=== PATIENT | male | born 1970 | race African-American/Black ===

== ENCOUNTER 2017-07-24 10:32 | Inpatient (IN) | payer OTHER ==
[2017-07-24 11:43] VITALS: BMI 40.7
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
[2017-07-24] MEDS ORDERED: chlordiazePOXIDE HCL 25 MG CAPSULE PO PRN (13:19)
[2017-07-24] MEDS ORDERED: LOPERAMIDE HCL 2 MG CAPSULE PO PRN (13:19)
[2017-07-24] MEDS ORDERED: diphenhydrAMINE HCL 50 MG CAPSULE PO PRN (13:19)
[2017-07-24] MEDS ORDERED: MAGNESIUM CITRATE 300 ML BOTTLE PO PRN (13:19)
[2017-07-24] MEDS ORDERED: guaiFENesin/D-METHORPHAN HB 10 ML UNIT-DOSE CUPS PO PRN (13:19)
[2017-07-24] MEDS ORDERED: hydrOXYzine PAMOATE 25 MG CAPSULE (FP) PO PRN (13:19)
[2017-07-24] MEDS ORDERED: MAGNESIUM HYDROX 2400MG/30ML ORAL SUSPENSION 30 ML CUP PO PRN (13:19)
[2017-07-24] MEDS ORDERED: MENTHOL/PHENOL 1 EACH UD MM PRN (13:19)
[2017-07-24] MEDS ORDERED: ACETAMINOPHEN 325 MG TABLET (FP) PO PRN (13:19)
[2017-07-24] MEDS ORDERED: IBUPROFEN 400 MG TABLET (FP) PO PRN (13:19)
[2017-07-24] MEDS ORDERED: P-EPHED 60MG/TRIPROLIDI 2.5MG TABLET PO PRN (13:19)
[2017-07-24] MEDS ORDERED: MAG HYDROX/AL HYDROX/SIMETH 30 ML UNIT-DOSE CUP PO PRN (13:19)
[2017-07-24] MEDS ORDERED: chlordiazePOXIDE HCL 25 MG CAPSULE PO ONE (14:00)
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
[2017-07-24 16:48] LABS: MCH 30.6 pg (25.7-33.7); MCHC 33.4 g/dl (32.0-35.9); MEAN CELL VOLUME 91.6 fl (80-96); MEAN PLT VOLUME 10.9 fl (7.5-11.1); PLATELET COUNT 282 K/MM3 (134-434); RDW 14.1 % (11.9-15.9); WHITE BLOOD COUNT 12.7 K/mm3 (4.0-10.0)
[2017-07-24 16:58] LABS: URINE APPEARANCE SLCLOUDY; URINE BILIRUBIN NEGATIVE (NEGATIVE); URINE BLOOD NEGATIVE (NEGATIVE); URINE COLOR YELLOW; URINE GLUCOSE (UA) NEGATIVE (NEGATIVE); URINE KETONE NEGATIVE (NEGATIVE); URINE LEUK ESTERASE TRACE (NEGATIVE); URINE NITRITE NEGATIVE (NEGATIVE); URINE UROBILINOGEN NEGATIVE mg/dL (0.2-1.0)
[2017-07-24] MEDS: chlordiazePOXIDE HCL 25 MG CAPSULE PO SCH ×2 (17:04→22:55)
[2017-07-24 17:06] LABS: URINE PROTEIN 2+ (NEGATIVE)
[2017-07-24 17:10] LABS: URINE MUCUS MANY; URINE RBC 1 /hpf (0-3); URINE WBC 20 /hpf (3-5)
[2017-07-24 17:19] LABS: ALBUMIN 4.6 g/dl (3.4-5.0); ANION GAP 9 (8-16); CALCIUM 9.7 mg/dL (8.5-10.1); CO2 26 mmol/L (21-32); CREATININE 1.3 mg/dL (0.7-1.3); GLUCOSE,RANDOM 133 mg/dL (74-106); SGOT/AST 48 U/L (15-37); SGPT/ALT 27 U/L (12-78)
[2017-07-24 17:21] LABS: ALK PHOS 100 U/L (45-117); BILIRUBIN,TOTAL 0.5 mg/dL (0.2-1.0); TOT PROT 8.4 g/dl (6.4-8.2)
[2017-07-24] MEDS: RANITIDINE HCL 150 MG TABLET (FP) PO SCH (22:54)
[2017-07-24] MEDS: QUEtiapine FUMARATE 200 MG TABLET PO SCH (22:54)
[2017-07-24] MEDS: THIAMINE HCL 100 MG TABLET (FP) PO SCH (22:54)
[2017-07-25] MEDS: chlordiazePOXIDE HCL 25 MG CAPSULE PO SCH ×4 (05:29→22:22)
[2017-07-25] MEDS: PRENATAL VITAMINS W/ FOLIC ACID TABLET (FP) PO SCH (10:53)
[2017-07-25] MEDS: SERTRALINE HCL 50 MG TABLET (FP) PO SCH (10:53)
[2017-07-25] MEDS: RANITIDINE HCL 150 MG TABLET (FP) PO SCH ×2 (10:53→22:22)
--- NOTE | 2017-07-25 11:34 | EKG ---
Test Reason : Blood Pressure : / mmHG Vent. Rate : 090 BPM Atrial Rate : 090 BPM P-R Int : 120 ms QRS Dur : 088 ms QT Int : 362 ms P-R-T Axes : 070 046 021 degrees QTc Int : 442 ms NORMAL SINUS RHYTHM NORMAL ECG NO PREVIOUS ECGS AVAILABLE Confirmed by TALHA AGUILAR MD ([id number]) on 07/25/2017 11:33:45 AM Referred By: Confirmed By:TALHA AGUILAR MD
--- NOTE | 2017-07-25 14:04 | PN ---
S CIWA - CIWA Score Nausea/Vomitin Muscle Tremors: 4-Moderate,w/Arms Extend Anxiety: 3 Agitation: 1-Slight > Activity Paroxysmal Sweats: 3 Orientation: 0-Oriented Tacttile Disturbances: 1-Very Mild Itch/Numbness Auditory Disturbances: 1-Very Mild Visual Disturbances: 2-Mild Sensitivity Headache: 0-None Present CIWA-Ar Total Score: 17 BHS Progress Note (SOAP) Subjective: Body Aches, sweating, Diarrhea, Interrupted sleep, Tremors. Objective: PT. A & O X 3. NO ACUTE DISTRESS. PATIENT DOES NOT REPORT ANY UNUSUAL URINARY SYMPTOMS (BURNING, PAIN, FREQUENCY). 07/25/17 14:02 Vital Signs Temperature 96.8 F L 07/25/17 13:44 Pulse Rate 67 07/25/17 13:44 Respiratory Rate 18 07/25/17 13:44 Blood Pressure 110/81 07/25/17 13:44 O2 Sat by Pulse Oximetry (%) Laboratory Tests 07/24/17 07/24/17 07/24/17 12:00 12:00 12:00 WBC 12.7 H D RBC 4.83 Hgb 14.8 Hct 44.2 MCV 91.6 MCH 30.6 MCHC 33.4 RDW 14.1 Plt Count 282 D MPV 10.9 Sodium 141 Potassium 4.3 Chloride 106 Carbon Dioxide 26 Anion Gap 9 BUN 17 D Creatinine 1.3 Creat Clearance w eGFR 58.67 Random Glucose 133 H Calcium 9.7 Total Bilirubin 0.5 D AST 48 H ALT 27 Alkaline Phosphatase 100 D Total Protein 8.4 H D Albumin 4.6 D Urine Color Urine Appearance Urine pH Ur Specific [place] Urine Protein Urine Glucose (UA) Urine Ketones Urine Blood Urine Nitrite Urine Bilirubin Urine Urobilinogen Ur Leukocyte Esterase Urine RBC Urine WBC Ur Epithelial Cells Urine Mucus RPR Titer Nonreactive 07/24/17 15:00 WBC RBC Hgb Hct MCV MCH MCHC RDW Plt Count MPV Sodium Potassium Chloride Carbon Dioxide Anion Gap BUN Creatinine Creat Clearance w eGFR Random Glucose Calcium Total Bilirubin AST ALT Alkaline Phosphatase Total Protein Albumin Urine Color Yellow Urine Appearance Slcloudy Urine pH 5.0 Ur Specific [place] 1.025 Urine Protein 2+ H Urine Glucose (UA) Negative Urine Ketones Negative Urine Blood Negative Urine Nitrite Negative Urine Bilirubin Negative Urine Urobilinogen Negative Ur Leukocyte Esterase Trace Urine RBC 1 Urine WBC 20 Ur Epithelial Cells Rare Urine Mucus Many RPR Titer LABS NOTED. 07/25/17 14:07 Assessment: 07/25/17 14:02 WITHDRAWAL SYMPTOMS. Plan: CONTINUE DETOX. URINE C + S WITH REPEAT UA FOR ABNORMAL ADMISSION UA VALUES. REPEAT CBC ON 07/26/2017 FOR ELEVATED ADMISSION WBC LEVEL.
[2017-07-25] MEDS: THIAMINE HCL 100 MG TABLET (FP) PO SCH (22:22)
[2017-07-25] MEDS: QUEtiapine FUMARATE 200 MG TABLET PO SCH (22:22)
[2017-07-26] MEDS: chlordiazePOXIDE HCL 25 MG CAPSULE PO SCH ×2 (05:38→10:30)
[2017-07-26] MEDS: SERTRALINE HCL 50 MG TABLET (FP) PO SCH (10:29)
[2017-07-26] MEDS: PRENATAL VITAMINS W/ FOLIC ACID TABLET (FP) PO SCH (10:29)
[2017-07-26] MEDS: RANITIDINE HCL 150 MG TABLET (FP) PO SCH ×2 (10:30→22:01)
--- NOTE | 2017-07-26 11:05 | PN ---
BHS CIWA - CIWA Score Nausea/Vomitin Muscle Tremors: 4-Moderate,w/Arms Extend Anxiety: 3 Agitation: 3 Paroxysmal Sweats: 1-Minimal Palms Moist Orientation: 0-Oriented Tacttile Disturbances: 1-Very Mild Itch/Numbness Auditory Disturbances: 0-None Visual Disturbances: 0-None Headache: 1-Very Mild CIWA-Ar Total Score: 16 BHS Progress Note (SOAP) Subjective: nausea, sweats, interrupted sleep, anxiety, termors Objective: 07/26/17 11:04 Vital Signs - 8 hr 07/26/17 07/26/17 07/26/17 03:59 06:28 09:57 Temperature 97.4 F L 99.0 F Pulse Rate 59 L 63 Respiratory 18 20 18 Rate Blood Pressure 111/78 107/77 Laboratory Tests 07/24/17 07/24/17 07/24/17 12:00 12:00 12:00 WBC 12.7 H D RBC 4.83 Hgb 14.8 Hct 44.2 MCV 91.6 MCH 30.6 MCHC 33.4 RDW 14.1 Plt Count 282 D MPV 10.9 Sodium 141 Potassium 4.3 Chloride 106 Carbon Dioxide 26 Anion Gap 9 BUN 17 D Creatinine 1.3 Creat Clearance w eGFR 58.67 Random Glucose 133 H Calcium 9.7 Total Bilirubin 0.5 D AST 48 H ALT 27 Alkaline Phosphatase 100 D Total Protein 8.4 H D Albumin 4.6 D Urine Color Urine Appearance Urine pH Ur Specific [place] Urine Protein Urine Glucose (UA) Urine Ketones Urine Blood Urine Nitrite Urine Bilirubin Urine Urobilinogen Ur Leukocyte Esterase Urine RBC Urine WBC Ur Epithelial Cells Urine Mucus RPR Titer Nonreactive 07/24/17 15:00 WBC RBC Hgb Hct MCV MCH MCHC RDW Plt Count MPV Sodium Potassium Chloride Carbon Dioxide Anion Gap BUN Creatinine Creat Clearance w eGFR Random Glucose Calcium Total Bilirubin AST ALT Alkaline Phosphatase Total Protein Albumin Urine Color Yellow Urine Appearance Slcloudy Urine pH 5.0 Ur Specific [place] 1.025 Urine Protein 2+ H Urine Glucose (UA) Negative Urine Ketones Negative Urine Blood Negative Urine Nitrite Negative Urine Bilirubin Negative Urine Urobilinogen Negative Ur Leukocyte Esterase Trace Urine RBC 1 Urine WBC 20 Ur Epithelial Cells Rare Urine Mucus Many RPR Titer Assessment: 07/26/17 11:05 withdrawal sx Plan: cont detox
[2017-07-26] MEDS: chlordiazePOXIDE 5 MG CAPSULE PO SCH ×2 (17:04→22:01)
[2017-07-26] MEDS: QUEtiapine FUMARATE 200 MG TABLET PO SCH (22:01)
[2017-07-26] MEDS: THIAMINE HCL 100 MG TABLET (FP) PO SCH (22:01)
[2017-07-27] MEDS: chlordiazePOXIDE 5 MG CAPSULE PO SCH ×2 (06:14→10:19)
[2017-07-27] MEDS: PRENATAL VITAMINS W/ FOLIC ACID TABLET (FP) PO SCH (10:19)
[2017-07-27] MEDS: SERTRALINE HCL 50 MG TABLET (FP) PO SCH (10:19)
[2017-07-27] MEDS: RANITIDINE HCL 150 MG TABLET (FP) PO SCH ×2 (10:19→23:22)
--- NOTE | 2017-07-27 15:18 | PN ---
BHS Progress Note (SOAP) Subjective: Anxious, Interrupted Sleep. Objective: PT. A & O X 3, OBSERVED AMBULATING ON UNIT. NO ACUTE DISTRESS. PT. DENIES CHEST PAIN. 07/27/17 15:14 Vital Signs Temperature 99.0 F 07/27/17 14:16 Pulse Rate 62 07/27/17 14:16 Respiratory Rate 18 07/27/17 14:16 Blood Pressure 114/74 07/27/17 14:16 O2 Sat by Pulse Oximetry (%) Laboratory Tests 07/24/17 07/24/17 07/24/17 12:00 12:00 12:00 WBC 12.7 H D RBC 4.83 Hgb 14.8 Hct 44.2 MCV 91.6 MCH 30.6 MCHC 33.4 RDW 14.1 Plt Count 282 D MPV 10.9 Sodium 141 Potassium 4.3 Chloride 106 Carbon Dioxide 26 Anion Gap 9 BUN 17 D Creatinine 1.3 Creat Clearance w eGFR 58.67 POC Glucometer Random Glucose 133 H Calcium 9.7 Total Bilirubin 0.5 D AST 48 H ALT 27 Alkaline Phosphatase 100 D Total Protein 8.4 H D Albumin 4.6 D Urine Color Urine Appearance Urine pH Ur Specific [place] Urine Protein Urine Glucose (UA) Urine Ketones Urine Blood Urine Nitrite Urine Bilirubin Urine Urobilinogen Ur Leukocyte Esterase Urine RBC Urine WBC Ur Epithelial Cells Urine Mucus RPR Titer Nonreactive 07/24/17 07/27/17 15:00 06:13 WBC RBC Hgb Hct MCV MCH MCHC RDW Plt Count MPV Sodium Potassium Chloride Carbon Dioxide Anion Gap BUN Creatinine Creat Clearance w eGFR POC Glucometer 110 Random Glucose Calcium Total Bilirubin AST ALT Alkaline Phosphatase Total Protein Albumin Urine Color Yellow Urine Appearance Slcloudy Urine pH 5.0 Ur Specific [place] 1.025 Urine Protein 2+ H Urine Glucose (UA) Negative Urine Ketones Negative Urine Blood Negative Urine Nitrite Negative Urine Bilirubin Negative Urine Urobilinogen Negative Ur Leukocyte Esterase Trace Urine RBC 1 Urine WBC 20 Ur Epithelial Cells Rare Urine Mucus Many RPR Titer LABS NOTED. RESULT OF URINE C + S NOTED. 07/27/17 15:15 Assessment: 07/27/17 15:14 WITHDRAWAL SYMPTOMS. Plan: CONTINUE DETOX.
[2017-07-27] MEDS: chlordiazePOXIDE HCL 10 MG CAPSULE PO SCH ×2 (18:01→23:22)
[2017-07-27 22:24] VITALS: BP 120/78; PULSE 64; TEMP 97.7
[2017-07-27] MEDS: QUEtiapine FUMARATE 200 MG TABLET PO SCH (23:21)
[2017-07-27] MEDS: THIAMINE HCL 100 MG TABLET (FP) PO SCH (23:22)
[2017-07-28] MEDS: chlordiazePOXIDE HCL 10 MG CAPSULE PO SCH (06:05)
[2017-07-28] MEDS: SERTRALINE HCL 50 MG TABLET (FP) PO SCH (09:56)
[2017-07-28] MEDS: RANITIDINE HCL 150 MG TABLET (FP) PO SCH (09:56)
[2017-07-28] MEDS: PRENATAL VITAMINS W/ FOLIC ACID TABLET (FP) PO SCH (09:56)
--- NOTE | 2017-07-28 16:55 | DS ---
[facility] Detox Discharge Summary Admission Date: 07/24/17 Discharge Date: 07/28/17 - History Present History: Alcohol Dependence, Cocaine Dependence Additional Comments: PATIENT GOING HOME REHAB BED UNAVAILABLE AT [facility] AT THIS TIME. PATIENT ADVISED TO CONSIDER LOCAL 12-STEP / NA / AA OUTPATIENT SUPPORT GROUPS FOR FOLLOW -UP AFTERCARE. PATIENT WAS DISCHARGED FROM UNIT IN STABLE MEDICAL CONDITION. Pertinent Past History: G.E.R.D., Insomnia, Depression, Bipolar Disorder, Schizophrenia, P.T.S.D. - Physical Exam Results Vital Signs: Vital Signs Temperature 97.7 F 07/27/17 22:23 Pulse Rate 64 07/27/17 22:23 Respiratory Rate 18 07/28/17 03:28 Blood Pressure 120/78 07/27/17 22:23 O2 Sat by Pulse Oximetry (%) Pertinent Admission Physical Exam Findings: WITHDRAWAL SYMPTOMS. Laboratory Tests 07/24/17 07/24/17 07/24/17 12:00 12:00 12:00 WBC 12.7 H D RBC 4.83 Hgb 14.8 Hct 44.2 MCV 91.6 MCH 30.6 MCHC 33.4 RDW 14.1 Plt Count 282 D MPV 10.9 Sodium 141 Potassium 4.3 Chloride 106 Carbon Dioxide 26 Anion Gap 9 BUN 17 D Creatinine 1.3 Creat Clearance w eGFR 58.67 POC Glucometer Random Glucose 133 H Calcium 9.7 Total Bilirubin 0.5 D AST 48 H ALT 27 Alkaline Phosphatase 100 D Total Protein 8.4 H D Albumin 4.6 D Urine Color Urine Appearance Urine pH Ur Specific [place] Urine Protein Urine Glucose (UA) Urine Ketones Urine Blood Urine Nitrite Urine Bilirubin Urine Urobilinogen Ur Leukocyte Esterase Urine RBC Urine WBC Ur Epithelial Cells Urine Mucus RPR Titer Nonreactive 07/24/17 07/27/17 15:00 06:13 WBC RBC Hgb Hct MCV MCH MCHC RDW Plt Count MPV Sodium Potassium Chloride Carbon Dioxide Anion Gap BUN Creatinine Creat Clearance w eGFR POC Glucometer 110 Random Glucose Calcium Total Bilirubin AST ALT Alkaline Phosphatase Total Protein Albumin Urine Color Yellow Urine Appearance Slcloudy Urine pH 5.0 Ur Specific [place] 1.025 Urine Protein 2+ H Urine Glucose (UA) Negative Urine Ketones Negative Urine Blood Negative Urine Nitrite Negative Urine Bilirubin Negative Urine Urobilinogen Negative Ur Leukocyte Esterase Trace Urine RBC 1 Urine WBC 20 Ur Epithelial Cells Rare Urine Mucus Many RPR Titer LABS NOTED. - Treatment Hospital Course: Detox Protocol Followed, Detoxed Safely, Responded well, Discharged Condition Good Patient has Accepted a Rehab Referral to: PT. GOING HOME. SEE 'ADDITIONAL COMMENTS' SECTION ABOVE. - Medication Discharge Medications: Ambulatory Orders Quetiapine Fumarate [Seroquel -] 400 mg PO HS 11/08/14 Lansoprazole [Prevacid -] 30 mg PO DAILY 07/24/17 Quetiapine Fumarate [Seroquel -] 400 mg PO HS #30 tab 07/24/17 Sertraline HCl [Zoloft -] 150 mg PO DAILY 07/24/17 Sertraline HCl [Zoloft -] 150 mg PO DAILY #60 tablet 07/24/17 - Diagnosis (1) Alcohol dependence with withdrawal, uncomplicated Status: Acute (2) Cocaine dependence, uncomplicated Status: Acute (3) Insomnia Status: Acute Qualifiers: Insomnia type: unspecified Qualified Code(s): G47.00 - Insomnia, unspecified (4) Nicotine dependence Status: Chronic Qualifiers: Nicotine product type: cigarettes Substance use status: in withdrawal Qualified Code(s): F17.213 - Nicotine dependence, cigarettes, with withdrawal (5) Bipolar disorder Status: Chronic (6) GERD (gastroesophageal reflux disease) Status: Chronic Qualifiers: Esophagitis presence: without esophagitis Qualified Code(s): K21.9 - Gastro-esophageal reflux disease without esophagitis (7) PTSD (post-traumatic stress disorder) Status: Chronic - AMA Did Patient Leave Against Medical Advice: No
== END 2017-07-28 09:57 | disposition home or self-care (01) | DRG 774 ==
LOC: YASAS 10:32 → Y3N 13:16
PROVIDERS: ADMIT Internal Medicine Addiction Medicine; ATTEND Internal Medicine Addiction Medicine
PROC: HZ2ZZZZ Detoxification Services for Substance Abuse Treatment (ICD-10-PCS; principal; 2017-07-24)
DX: F10.230 Alcohol dependence with withdrawal, uncomplicated (principal); F14.20 Cocaine dependence, uncomplicated; F17.213 Nicotine dependence, cigarettes, with withdrawal; F43.10 Post-traumatic stress disorder, unspecified; F31.9 Bipolar disorder, unspecified; K21.9 Gastro-esophageal reflux disease without esophagitis; G47.00 Insomnia, unspecified; E66.01 Morbid (severe) obesity due to excess calories; Z68.41 Body mass index [BMI] 40.0-44.9, adult; Z91.013 Allergy to seafood; Z91.018 Allergy to other foods; Z91.5 Personal history of self-harm
CPT/HCPCS: 36415; 80053; 81003; 81015; 85027; 86593; 87086; 93005; 93010

== ENCOUNTER 2017-07-30 12:26 | Inpatient (IN) | payer OTHER ==
[2017-07-30 12:43] VITALS: BMI 40.7
[2017-07-30] MEDS ORDERED: MENTHOL/PHENOL 1 EACH UD MM PRN (15:47)
[2017-07-30] MEDS ORDERED: diphenhydrAMINE HCL 50 MG CAPSULE PO PRN (15:47)
[2017-07-30] MEDS ORDERED: P-EPHED 60MG/TRIPROLIDI 2.5MG TABLET PO PRN (15:47)
[2017-07-30] MEDS ORDERED: guaiFENesin/D-METHORPHAN HB 10 ML UNIT-DOSE CUPS PO PRN (15:47)
[2017-07-30] MEDS ORDERED: MAGNESIUM HYDROX 2400MG/30ML ORAL SUSPENSION 30 ML CUP PO PRN (15:47)
[2017-07-30] MEDS ORDERED: MAGNESIUM CITRATE 300 ML BOTTLE PO PRN (15:47)
[2017-07-30] MEDS ORDERED: LOPERAMIDE HCL 2 MG CAPSULE PO PRN (15:47)
[2017-07-30] MEDS ORDERED: hydrOXYzine PAMOATE 50 MG CAPSULE (FP) PO PRN (15:47)
--- NOTE | 2017-07-30 15:47 | HP ---
[facility] Rehab Assess/Revision - Admission History Admitted to Rehab from: [facility] Date of Admission to Rehab: 07/30/2017 - Vital signs Vital Signs: Vital Signs Period Temp Pulse Resp BP Sys/Arzate Pulse Ox Last 24 Hr 98.1 F 92 20 108/69 - Findings Detox History & Physical reviewed: Yes Concur with findings: Yes Comments/Additional Findings: s/p detox from alcohol and cocaine, medically stable, no signs of withdrawal - was admitted briefly at [facility] for depression, did not want to return to longterm post detox [facility] bed ready
[2017-07-30] MEDS: THIAMINE HCL 100 MG TABLET (FP) PO SCH (21:58)
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
[2017-07-31] MEDS ORDERED: PANTOPRAZOLE 40 MG TABLET (FP) PO SCH (10:00)
[2017-07-31] MEDS: PRENATAL VITAMINS W/ FOLIC ACID TABLET (FP) PO SCH (10:09)
[2017-07-31] MEDS: SERTRALINE HCL 50 MG TABLET (FP) PO SCH (10:50)
[2017-07-31] MEDS: IBUPROFEN 400 MG TABLET (FP) PO PRN (14:05)
[2017-07-31] MEDS: ACETAMINOPHEN 325 MG TABLET (FP) PO PRN (15:55)
[2017-07-31] MEDS: THIAMINE HCL 100 MG TABLET (FP) PO SCH (21:43)
[2017-07-31] MEDS: QUEtiapine FUMARATE 400 MG TABLET PO SCH (21:43)
[2017-08-01] MEDS: SERTRALINE HCL 50 MG TABLET (FP) PO SCH (10:13)
[2017-08-01] MEDS: PANTOPRAZOLE 40 MG TABLET (FP) PO SCH (10:14)
[2017-08-01] MEDS: PRENATAL VITAMINS W/ FOLIC ACID TABLET (FP) PO SCH (10:14)
[2017-08-01] MEDS: MAG HYDROX/AL HYDROX/SIMETH 30 ML UNIT-DOSE CUP PO PRN ×2 (10:16→16:46)
[2017-08-01] MEDS: IBUPROFEN 400 MG TABLET (FP) PO PRN ×2 (11:21→17:35)
[2017-08-01] MEDS: THIAMINE HCL 100 MG TABLET (FP) PO SCH (21:38)
[2017-08-01] MEDS: QUEtiapine FUMARATE 400 MG TABLET PO SCH (21:38)
[2017-08-02] MEDS: PRENATAL VITAMINS W/ FOLIC ACID TABLET (FP) PO SCH (09:58)
[2017-08-02] MEDS: PANTOPRAZOLE 40 MG TABLET (FP) PO SCH (09:58)
[2017-08-02] MEDS: SERTRALINE HCL 50 MG TABLET (FP) PO SCH (09:58)
[2017-08-02] MEDS ORDERED: ONDANSETRON *ODT* 4 MG TABLET SL PRN (12:56)
[2017-08-02] MEDS: QUEtiapine FUMARATE 400 MG TABLET PO SCH (23:50)
[2017-08-02] MEDS: THIAMINE HCL 100 MG TABLET (FP) PO SCH (23:50)
[2017-08-03] MEDS: PRENATAL VITAMINS W/ FOLIC ACID TABLET (FP) PO SCH (09:50)
[2017-08-03] MEDS: SERTRALINE HCL 50 MG TABLET (FP) PO SCH (09:50)
[2017-08-03] MEDS: PANTOPRAZOLE 40 MG TABLET (FP) PO SCH (09:50)
[2017-08-03] MEDS: IBUPROFEN 400 MG TABLET (FP) PO PRN (12:31)
[2017-08-03] MEDS: ACETAMINOPHEN 325 MG TABLET (FP) PO PRN (14:00)
[2017-08-03] MEDS: QUEtiapine FUMARATE 400 MG TABLET PO SCH (21:23)
[2017-08-03] MEDS: THIAMINE HCL 100 MG TABLET (FP) PO SCH (21:23)
[2017-08-04] MEDS: PANTOPRAZOLE 40 MG TABLET (FP) PO SCH (09:56)
[2017-08-04] MEDS: PRENATAL VITAMINS W/ FOLIC ACID TABLET (FP) PO SCH (09:56)
[2017-08-04] MEDS: SERTRALINE HCL 50 MG TABLET (FP) PO SCH (09:56)
[2017-08-04] MEDS: THIAMINE HCL 100 MG TABLET (FP) PO SCH (21:20)
[2017-08-04] MEDS: QUEtiapine FUMARATE 400 MG TABLET PO SCH (21:20)
[2017-08-05] MEDS: SERTRALINE HCL 50 MG TABLET (FP) PO SCH (09:57)
[2017-08-05] MEDS: PRENATAL VITAMINS W/ FOLIC ACID TABLET (FP) PO SCH (09:57)
[2017-08-05] MEDS: PANTOPRAZOLE 40 MG TABLET (FP) PO SCH (09:58)
[2017-08-05] MEDS: QUEtiapine FUMARATE 400 MG TABLET PO SCH (23:52)
[2017-08-05] MEDS: THIAMINE HCL 100 MG TABLET (FP) PO SCH (23:52)
[2017-08-06] MEDS: SERTRALINE HCL 50 MG TABLET (FP) PO SCH (10:08)
[2017-08-06] MEDS: PANTOPRAZOLE 40 MG TABLET (FP) PO SCH (10:08)
[2017-08-06] MEDS: PRENATAL VITAMINS W/ FOLIC ACID TABLET (FP) PO SCH (10:08)
[2017-08-06] MEDS: THIAMINE HCL 100 MG TABLET (FP) PO SCH (21:02)
[2017-08-06] MEDS: QUEtiapine FUMARATE 400 MG TABLET PO SCH (21:02)
[2017-08-07] MEDS: SERTRALINE HCL 50 MG TABLET (FP) PO SCH (10:11)
[2017-08-07] MEDS: PANTOPRAZOLE 40 MG TABLET (FP) PO SCH (10:11)
[2017-08-07] MEDS: PRENATAL VITAMINS W/ FOLIC ACID TABLET (FP) PO SCH (10:11)
[2017-08-07] MEDS: THIAMINE HCL 100 MG TABLET (FP) PO SCH (21:57)
[2017-08-07] MEDS: QUEtiapine FUMARATE 400 MG TABLET PO SCH (21:57)
[2017-08-08] MEDS: PANTOPRAZOLE 40 MG TABLET (FP) PO SCH (10:14)
[2017-08-08] MEDS: SERTRALINE HCL 50 MG TABLET (FP) PO SCH (10:15)
[2017-08-08] MEDS: PRENATAL VITAMINS W/ FOLIC ACID TABLET (FP) PO SCH (10:15)
[2017-08-08] MEDS: QUEtiapine FUMARATE 400 MG TABLET PO SCH (21:11)
[2017-08-08] MEDS: THIAMINE HCL 100 MG TABLET (FP) PO SCH (21:12)
[2017-08-09] MEDS: PRENATAL VITAMINS W/ FOLIC ACID TABLET (FP) PO SCH (10:16)
[2017-08-09] MEDS: PANTOPRAZOLE 40 MG TABLET (FP) PO SCH (10:16)
[2017-08-09] MEDS: MAG HYDROX/AL HYDROX/SIMETH 30 ML UNIT-DOSE CUP PO PRN (10:17)
[2017-08-09] MEDS: SERTRALINE HCL 50 MG TABLET (FP) PO SCH (10:17)
[2017-08-09] MEDS: ACETAMINOPHEN 325 MG TABLET (FP) PO PRN (14:06)
[2017-08-09] MEDS: THIAMINE HCL 100 MG TABLET (FP) PO SCH (22:28)
[2017-08-09] MEDS: QUEtiapine FUMARATE 400 MG TABLET PO SCH (22:28)
[2017-08-10] MEDS: SERTRALINE HCL 50 MG TABLET (FP) PO SCH (09:58)
[2017-08-10] MEDS: PRENATAL VITAMINS W/ FOLIC ACID TABLET (FP) PO SCH (09:58)
[2017-08-10] MEDS: PANTOPRAZOLE 40 MG TABLET (FP) PO SCH (09:58)
[2017-08-10] MEDS: THIAMINE HCL 100 MG TABLET (FP) PO SCH (21:28)
[2017-08-10] MEDS: QUEtiapine FUMARATE 400 MG TABLET PO SCH (21:28)
[2017-08-11] MEDS: PRENATAL VITAMINS W/ FOLIC ACID TABLET (FP) PO SCH (10:16)
[2017-08-11] MEDS: PANTOPRAZOLE 40 MG TABLET (FP) PO SCH (10:17)
[2017-08-11] MEDS: SERTRALINE HCL 50 MG TABLET (FP) PO SCH (10:17)
[2017-08-11] MEDS: QUEtiapine FUMARATE 400 MG TABLET PO SCH (21:36)
[2017-08-11] MEDS: THIAMINE HCL 100 MG TABLET (FP) PO SCH (21:36)
[2017-08-12 06:47] VITALS: BP 117/64; PULSE 65; TEMP 96.9
--- NOTE | 2017-08-12 07:52 | PN ---
Psychiatric Progress Note Vital Signs: Vital Signs Period Temp Pulse Resp BP Sys/Arzate Pulse Ox Last 24 Hr 96.9 F 65 18-18 117/64 Date of Session: 08/12/17 Chief Complaint:: Discharge Note HPI: Patient addressing Alcohol and Cocaine Dependence comorbid with Schizoaffective Disorder and Posttraumatic Stress Disorder ROS: GERD, LBP, Morbid Obesity were medically managed Current Medications: Active Medications Generic Name Dose Route Start Last Admin Trade Name Freq PRN Reason Stop Dose Admin Acetaminophen 650 mg 07/30/17 15:47 08/09/17 14:06 Tylenol - PO 650 mg Q4H PRN Administration FEVER OR PAIN Al Hydroxide/Mg Hydroxide 30 ml 07/30/17 15:47 08/09/17 10:17 Mylanta Oral Suspension - PO 30 ml Q6H PRN Administration DYSPEPSIA Diphenhydramine HCl 50 mg 07/30/17 15:47 Benadryl - PO HSMR1 PRN FOR ITCHING Eucalyptus/Menthol/Phenol/Sorbitol 1 each 07/30/17 15:47 Cepastat Lozenge - MM Q4H PRN SORE THROAT Guaifenesin 10 ml 07/30/17 15:47 Robitussin Dm - PO Q6H PRN COUGH Hydroxyzine Pamoate 50 mg 07/30/17 15:47 Vistaril - PO Q4H PRN AGITATION Ibuprofen 400 mg 07/30/17 15:47 08/03/17 12:31 Motrin - PO 400 mg Q6H PRN Administration PAIN Loperamide HCl 4 mg 07/30/17 15:47 Imodium - PO Q6H PRN DIARRHEA Magnesium Hydroxide 30 ml 07/30/17 15:47 Milk Of Magnesia - PO DAILY PRN CONSTIPATION Ondansetron HCl 4 mg 08/02/17 12:56 Zofran Odt - SL Q6H PRN NAUSEA AND/OR VOMITING Pantoprazole Sodium 40 mg 07/31/17 15:19 08/11/17 10:17 Protonix - PO 40 mg DAILY JONAH Administration Multivit/Folic Acid/Iron 1 tab 07/31/17 10:00 08/11/17 10:16 Vitamins (Sjr) - PO 1 tab DAILY JONAH Administration Pseudoephedrine/Triprolidine 1 combo 07/30/17 15:47 Actifed - PO TID PRN NASAL CONGESTION Quetiapine Fumarate 400 mg 07/31/17 22:00 08/11/17 21:36 Seroquel - PO Not Given HS JONAH Sertraline HCl 150 mg 07/31/17 10:30 08/11/17 10:17 Zoloft - PO 150 mg DAILY JONAH Administration Thiamine HCl 100 mg 07/30/17 22:00 08/11/17 21:36 Vitamin B1 - PO Not Given HS JONAH Current Side Effect: No Lab tests ordered: Yes Lab tests reviewed: Yes Provider note:: Patient will complete this program on 08/13/17. He hasMet his treatment goals and will continue to address his issues in outpatient treatment at [facility]. Told sign writer hand that he does not believe in going to /NA but will comply with attending outpatient program. He responded well to Zoloft 150 mg po daily and Seroquel 400 mg po HS. Scripts for 30 days supply of medications will electronically be transmitted to [facility] at [address] [place] [address] [place] [address]. He is stable for discharge on 08/13/17 Total face to face time:: 35 Mental Status Exam - Mental Status Exam Alert and Oriented to: Time, Place, Person Cognitive Function: Fair Patient Appearance: Well Groomed Mood: Hopeful, Euthymic Affect: Appropriate Patient Behavior: Cooperative Speech Pattern: Clear Voice Loudness: Normal Thought Process: Intact, Goal Oriented Thought Disorder: Not Present Hallucinations: Denies Suicidal Ideation: Denies Homicidal Ideation: Denies Insight/Judgement: Fair Sleep: Fair Appetite: Good Muscle strength/Tone: Normal Gait/Station: Normal Psychiatric Treatment Plan - Problem List (1) Alcohol dependence Current Visit: Yes (2) Cocaine dependence Current Visit: Yes (3) Schizoaffective disorder Current Visit: Yes (4) PTSD (post-traumatic stress disorder) Current Visit: No (5) GERD (gastroesophageal reflux disease) Current Visit: No Qualifiers: Esophagitis presence: without esophagitis Qualified Code(s): K21.9 - Gastro-esophageal reflux disease without esophagitis (6) Low back pain Current Visit: Yes (7) Morbid obesity Current Visit: Yes Initial treatment plan: Patient will be discharged tomorrow and referred to [facility] for outpatient treatment
[2017-08-12] MEDS: IBUPROFEN 400 MG TABLET (FP) PO PRN (08:21)
[2017-08-12] MEDS: PRENATAL VITAMINS W/ FOLIC ACID TABLET (FP) PO SCH (10:12)
[2017-08-12] MEDS: PANTOPRAZOLE 40 MG TABLET (FP) PO SCH (10:12)
[2017-08-12] MEDS: SERTRALINE HCL 50 MG TABLET (FP) PO SCH (10:12)
[2017-08-12] MEDS: QUEtiapine FUMARATE 400 MG TABLET PO SCH (21:39)
[2017-08-12] MEDS: THIAMINE HCL 100 MG TABLET (FP) PO SCH (21:39)
[2017-08-13] MEDS ORDERED: PT OWN MED DRAWER 7, Y5N ONE (06:58)
== END 2017-08-13 07:00 | disposition home or self-care (01) | DRG 772 ==
LOC: YASAS 12:26 → Y3W 15:58
PROVIDERS: ADMIT Psychiatry & Neurology Psychiatry; ATTEND Psychiatry & Neurology Psychiatry
PROC: HZ42ZZZ Group Counseling for Substance Abuse Treatment, Cognitive-Behavioral (ICD-10-PCS; principal; 2017-07-30)
DX: F11.20 Opioid dependence, uncomplicated (principal); F14.20 Cocaine dependence, uncomplicated; F25.9 Schizoaffective disorder, unspecified; F43.10 Post-traumatic stress disorder, unspecified; K21.9 Gastro-esophageal reflux disease without esophagitis; M54.5 Low back pain; E66.01 Morbid (severe) obesity due to excess calories; Z68.41 Body mass index [BMI] 40.0-44.9, adult; Z59.0 Homelessness

== ENCOUNTER 2018-01-25 13:48 | Inpatient (IN) | payer OTHER ==
[2018-01-25 17:25] VITALS: BMI 40.7
--- NOTE | 2018-01-25 22:04 | HP ---
CIWA Score - CIWA Score Nausea/Vomitin Muscle Tremors: 4-Moderate,w/Arms Extend Anxiety: 4-Mod. Anxious/Guarded Agitation: 4-Moderately Restless Paroxysmal Sweats: 1-Minimal Palms Moist Orientation: 1-Uncertain about Date Tacttile Disturbances: 0-None Auditory Disturbances: 0-None Visual Disturbances: 0-None Headache: 4-Moderately Severe CIWA-Ar Total Score: 20 Admission ROS S - HPI Chief Complaint: Alcohol withdrawal symptoms Allergies/Adverse Reactions: Allergies Allergy/AdvReac Type Severity Reaction Status Date / Time cranberry Allergy Severe Rash Verified 01/25/18 22:46 Fish Containing Products Allergy Severe Hives Verified 01/25/18 22:46 [Fish Product Derivatives] peach [[place]] Allergy Severe Rash Verified 01/25/18 22:46 No Known Drug Allergies Allergy Unknown Rash Verified 01/25/18 22:46 History of Present Illness: 47 years old male with a long history of alcohol dependence is seeking admission to detox. Patient has been in previous detox and reports a year of sobriety. He has medical history of GERD, back pain, migraine and depression. He reports suicide attempt in 1999 and denies suicidal ideation at this time. Exam Limitations: No Limitations - Ebola screening Have you traveled outside of the country in the last 21 days: No (N) Have you had contact with anyone from an Ebola affected area: No Have you been sick,other than usual withdrawal symptoms: No Do you have a fever: No - Review of Systems Constitutional: Chills, Loss of Appetite, Malaise, Night Sweats, Changes in sleep EENT: reports: Nose Congestion, Sinus Pressure Respiratory: reports: No Symptoms reported Cardiac: reports: No Symptoms Reported GI: reports: Diarrhea (x 4), Nausea, Poor Appetite, Poor Fluid Intake, Vomiting , Abdominal cramping : reports: No Symptoms Reported Musculoskeletal: reports: Back Pain, Muscle Pain, Muscle Weakness Integumentary: reports: Flushing Neuro: reports: Headache, Tingling, Tremors Endocrine: reports: No Symptoms Reported Hematology: reports: No Symptoms Reported Psychiatric: reports: Orientated x3, Agitated, Anxious Other Systems: Reviewed and Negative Patient History - Patient Medical History Hx Anemia: No Hx Asthma: No Hx Chronic Obstructive Pulmonary Disease (COPD): No Hx Cancer: No Hx Cardiac Disorders: No Hx Congestive Heart Failure: No Hx Hypertension: No Hx Hypercholesterolemia: No Hx Pacemaker: No HX Cerebrovascular Accident: No Hx Seizures: No Hx Dementia: No Hx Diabetes: No Hx Gastrointestinal Disorders: Yes (GERD- PEPCID) Hx Liver Disease: No Hx Genitourinary Disorders: No Hx Sexually Transmitted Disorders: No Hx Renal Disease (ESRD): No Hx Thyroid Disease: No Hx Human Immunodeficiency Virus (HIV): No (NEGATIVE 2016) Hx Hepatitis C: No Hx Depression: Yes Hx Suicide Attempt: Yes (Suicide attempt in 1999. Denies suicidal ideation now) Hx Bipolar Disorder: Yes Hx Schizophrenia: No (Not on medication) Other Medical History: Migraine- Not on medication - Patient Surgical History Past Surgical History: Yes Hx Neurologic Surgery: No Hx Cataract Extraction: No Hx Cardiac Surgery: No Hx Lung Surgery: No Hx Breast Surgery: No Hx Breast Biopsy: No Hx Abdominal Surgery: No Hx Appendectomy: Yes (1995) Hx Cholecystectomy: No Hx Genitourinary Surgery: No Hx Section: No Hx Orthopedic Surgery: No Anesthesia Reaction: No - PPD History Date: 10/29/14 Results: 0 mm - Smoking Cessation Smoking history: Former smoker Have you smoked in the past 12 months: No Aproximately how many cigarettes per day: 0 If you are a former smoker, when did you quit?: 2016 Cigars Per Day: 0 Hx Chewing Tobacco Use: No Initiated information on smoking cessation: No - Substances Abused Alcohol Route: Oral Frequency: Daily Amount used: 2 QUARTS OF BACARDI /2-6PACKS OF BEERS Age of first use: 11 Date of Last Use: 01/25/18 Cocaine Route: Smoking Frequency: Daily Amount used: $100 Age of first use: 15 Date of Last Use: 01/25/18 Family Disease History - Family Disease History Family Disease History: Heart Disease: Grandparent (mi), Other: Mother (alcohol dependence ) Admission Physical Exam BHS - Vital Signs Vital Signs: Vital Signs - 24 hr 01/25/18 17:23 Temperature 97.5 F L Pulse Rate 91 H Respiratory 20 Rate Blood Pressure 147/88 - Physical HEENTM: Yes: EOMI, Normal ENT Inspection, Normal Voice, BLADIMIR, Other (No teeth) Respiratory: Yes: Lungs Clear, Normal Breath Sounds, No Respiratory Distress Neck: Yes: Supple Breast: Yes: Breast Exam Deferred Cardiology: Yes: Regular Rhythm, Regular Rate, S1, S2 Abdominal: Yes: Normal Bowel Sounds, Soft Genitourinary: Yes: Within Normal Limits Back: Yes: Normal Inspection Musculoskeletal: Yes: Back pain, Muscle Pain, Muscle weakness Extremities: Yes: Tremors Neurological: Yes: Fully Oriented, Alert, Normal Mood/Affect Integumentary: Yes: Warm Lymphatic: Yes: Within Normal Limits - Diagnostic (1) Alcohol dependence with withdrawal, uncomplicated Current Visit: Yes Status: Chronic (2) Cocaine dependence, uncomplicated Current Visit: Yes Status: Chronic (3) Low back pain Current Visit: Yes Status: Chronic (4) Morbid obesity Current Visit: Yes Status: Chronic (5) GERD (gastroesophageal reflux disease) Current Visit: No Status: Chronic Qualifiers: Esophagitis presence: without esophagitis Qualified Code(s): K21.9 - Gastro -esophageal reflux disease without esophagitis Cleared for Admission [facility] - Detox or Rehab [facility] Level of Care: Medically Managed Detox Regimen/Protocol: Librium S Breath Alcohol Content Breath Alcohol Content: 0 Urine Drug Screen - Results Drug Screen Negative: No Urine Drug Screen Results: MAMIE-Cocaine, BZO-Benzodiazepines
[2018-01-25] MEDS ORDERED: guaiFENesin/D-METHORPHAN HB 10 ML UNIT-DOSE CUPS PO PRN (22:18)
[2018-01-25] MEDS ORDERED: LOPERAMIDE HCL 2 MG CAPSULE PO PRN (22:18)
[2018-01-25] MEDS ORDERED: IBUPROFEN 400 MG TABLET (FP) PO PRN (22:18)
[2018-01-25] MEDS ORDERED: ACETAMINOPHEN 325 MG TABLET (FP) PO PRN (22:18)
[2018-01-25] MEDS ORDERED: NICOTINE POLACRILEX 2 MG GUM BC PRN (22:18)
[2018-01-25] MEDS ORDERED: MAGNESIUM CITRATE 300 ML BOTTLE PO PRN (22:18)
[2018-01-25] MEDS ORDERED: MAGNESIUM HYDROX 2400MG/30ML ORAL SUSPENSION 30 ML CUP PO PRN (22:18)
[2018-01-25] MEDS ORDERED: MENTHOL/PHENOL 1 EACH UD MM PRN (22:18)
[2018-01-25] MEDS ORDERED: P-EPHED 60MG/TRIPROLIDI 2.5MG TABLET PO PRN (22:18)
[2018-01-25] MEDS ORDERED: chlordiazePOXIDE HCL 25 MG CAPSULE PO PRN (22:18)
[2018-01-25] MEDS: MAG HYDROX/AL HYDROX/SIMETH 30 ML UNIT-DOSE CUP PO PRN (23:19)
[2018-01-25] MEDS: chlordiazePOXIDE HCL 25 MG CAPSULE PO SCH (23:46)
[2018-01-26] MEDS: chlordiazePOXIDE HCL 25 MG CAPSULE PO SCH ×4 (05:50→22:45)
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
[2018-01-26 10:24] LABS: HEMATOCRIT 42.5 % (35.4-49); HEMOGLOBIN 14.1 GM/dL (11.7-16.9); MCH 30.7 pg (25.7-33.7); MCHC 33.3 g/dl (32.0-35.9); MEAN CELL VOLUME 92.3 fl (80-96); MEAN PLT VOLUME 10.6 fl (7.5-11.1); PLATELET COUNT 197 K/MM3 (134-434); RDW 13.7 % (11.9-15.9); WHITE BLOOD COUNT 7.7 K/mm3 (4.0-10.0)
[2018-01-26 10:32] LABS: URINE APPEARANCE CLEAR; URINE BILIRUBIN NEGATIVE (NEGATIVE); URINE BLOOD NEGATIVE (NEGATIVE); URINE COLOR YELLOW; URINE GLUCOSE (UA) NEGATIVE (NEGATIVE); URINE KETONE NEGATIVE (NEGATIVE); URINE LEUK ESTERASE NEGATIVE (NEGATIVE); URINE NITRITE NEGATIVE (NEGATIVE); URINE PROTEIN NEGATIVE (NEGATIVE); URINE UROBILINOGEN NEGATIVE mg/dL (0.2-1.0)
[2018-01-26] MEDS: PRENATAL VITAMINS W/ FOLIC ACID TABLET (FP) PO SCH (10:33)
[2018-01-26] MEDS: NICOTINE 14 MG/24 HOURS TOPICAL PATCH TD SCH (10:33)
[2018-01-26 10:37] LABS: ALBUMIN 3.4 g/dl (3.4-5.0); ANION GAP 9 (8-16); BLOOD UREA NITROGEN 9 mg/dL (7-18); CALCIUM 8.5 mg/dL (8.5-10.1); CHLORIDE 107 mmol/L (98-107); CO2 27 mmol/L (21-32); CREATININE 0.9 mg/dL (0.7-1.3); GLUCOSE,RANDOM 113 mg/dL (74-106); POTASSIUM 4.1 mmol/L (3.5-5.1); SGOT/AST 18 U/L (15-37); SGPT/ALT 20 U/L (12-78); SODIUM 143 mmol/L (136-145)
[2018-01-26 10:39] LABS: ALK PHOS 80 U/L (45-117); BILIRUBIN,TOTAL 0.3 mg/dL (0.2-1.0); TOT PROT 6.8 g/dl (6.4-8.2)
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
--- NOTE | 2018-01-26 12:27 | PN ---
S CIWA - CIWA Score Nausea/Vomitin-Mild Nausea/No Vomiting Muscle Tremors: 4-Moderate,w/Arms Extend Anxiety: 4-Mod. Anxious/Guarded Agitation: 4-Moderately Restless Paroxysmal Sweats: 1-Minimal Palms Moist Orientation: 0-Oriented Tacttile Disturbances: 1-Very Mild Itch/Numbness Auditory Disturbances: 0-None Visual Disturbances: 0-None Headache: 1-Very Mild CIWA-Ar Total Score: 16 BHS Progress Note (SOAP) Subjective: sweat tremor anxiety restlessness irritable mild headache Objective: 01/26/18 12:26 Vital Signs Temperature 97.9 F 01/26/18 10:40 Pulse Rate 69 01/26/18 10:40 Respiratory Rate 18 01/26/18 10:40 Blood Pressure 144/74 01/26/18 10:40 O2 Sat by Pulse Oximetry (%) Laboratory Last Values WBC 7.7 K/mm3 (4.0-10.0) D 01/26/18 08:00 RBC 4.60 M/mm3 (4.00-5.60) 01/26/18 08:00 Hgb 14.1 GM/dL (11.7-16.9) 01/26/18 08:00 Hct 42.5 % (35.4-49) 01/26/18 08:00 MCV 92.3 fl (80-96) 01/26/18 08:00 MCH 30.7 pg (25.7-33.7) 01/26/18 08:00 MCHC 33.3 g/dl (32.0-35.9) 01/26/18 08:00 RDW 13.7 % (11.9-15.9) 01/26/18 08:00 Plt Count 197 K/MM3 (134-434) D 01/26/18 08:00 MPV 10.6 fl (7.5-11.1) 01/26/18 08:00 Sodium 143 mmol/L (136-145) 01/26/18 08:00 Potassium 4.1 mmol/L (3.5-5.1) 01/26/18 08:00 Chloride 107 mmol/L (98-107) 01/26/18 08:00 Carbon Dioxide 27 mmol/L (21-32) 01/26/18 08:00 Anion Gap 9 (8-16) 01/26/18 08:00 BUN 9 mg/dL (7-18) D 01/26/18 08:00 Creatinine 0.9 mg/dL (0.7-1.3) D 01/26/18 08:00 Creat Clearance w eGFR > 60 (>60) 01/26/18 08:00 Random Glucose 113 mg/dL (74-106) H 01/26/18 08:00 Calcium 8.5 mg/dL (8.5-10.1) 01/26/18 08:00 Total Bilirubin 0.3 mg/dL (0.2-1.0) D 01/26/18 08:00 AST 18 U/L (15-37) D 01/26/18 08:00 ALT 20 U/L (12-78) D 01/26/18 08:00 Alkaline Phosphatase 80 U/L (45-117) 01/26/18 08:00 Total Protein 6.8 g/dl (6.4-8.2) 01/26/18 08:00 Albumin 3.4 g/dl (3.4-5.0) D 01/26/18 08:00 Urine Color Yellow 01/26/18 09:30 Urine Appearance Clear 01/26/18 09:30 Urine pH 6.0 (5.0-8.0) 01/26/18 09:30 Ur Specific [place] 1.019 (1.001-1.035) 01/26/18 09:30 Urine Protein Negative (NEGATIVE) 01/26/18 09:30 Urine Glucose (UA) Negative (NEGATIVE) 01/26/18 09:30 Urine Ketones Negative (NEGATIVE) 01/26/18 09:30 Urine Blood Negative (NEGATIVE) 01/26/18 09:30 Urine Nitrite Negative (NEGATIVE) 01/26/18 09:30 Urine Bilirubin Negative (NEGATIVE) 01/26/18 09:30 Urine Urobilinogen Negative mg/dL (0.2-1.0) 01/26/18 09:30 Ur Leukocyte Esterase Negative (NEGATIVE) 01/26/18 09:30 lab noted Assessment: 01/26/18 12:26 withdrawal sx Plan: continue detox
[2018-01-26] MEDS ORDERED: hydrOXYzine PAMOATE 50 MG CAPSULE (FP) PO PRN (14:07)
--- NOTE | 2018-01-26 14:27 | EKG ---
Test Reason : Blood Pressure : / mmHG Vent. Rate : 086 BPM Atrial Rate : 086 BPM P-R Int : 124 ms QRS Dur : 080 ms QT Int : 358 ms P-R-T Axes : 078 058 024 degrees QTc Int : 428 ms NORMAL SINUS RHYTHM NORMAL ECG Confirmed by MD LEÓN, RENETTA ([id number]) on 01/26/2018 2:27:36 PM Referred By: Confirmed By:RENETTA TRAORE MD
[2018-01-26] MEDS: SERTRALINE HCL 50 MG TABLET (FP) PO SCH (14:59)
[2018-01-26] MEDS: THIAMINE HCL 100 MG TABLET (FP) PO SCH (22:45)
[2018-01-26] MEDS: QUEtiapine FUMARATE 100 MG TABLET (FP) PO SCH (22:45)
[2018-01-26] MEDS: MAG HYDROX/AL HYDROX/SIMETH 30 ML UNIT-DOSE CUP PO PRN (22:46)
[2018-01-27] MEDS: chlordiazePOXIDE HCL 25 MG CAPSULE PO SCH ×3 (06:49→17:32)
[2018-01-27] MEDS: PRENATAL VITAMINS W/ FOLIC ACID TABLET (FP) PO SCH (10:23)
[2018-01-27] MEDS: SERTRALINE HCL 50 MG TABLET (FP) PO SCH (10:23)
[2018-01-27] MEDS: PANTOPRAZOLE 40 MG TABLET (FP) PO SCH (10:23)
[2018-01-27] MEDS: NICOTINE 14 MG/24 HOURS TOPICAL PATCH TD SCH (10:40)
[2018-01-27] MEDS: COLLOIDAL OATMEAL 1 BAR EACH TP PRN (11:38)
--- NOTE | 2018-01-27 12:12 | PN ---
S CIWA - CIWA Score Nausea/Vomitin Muscle Tremors: 3 Anxiety: 3 Agitation: 3 Paroxysmal Sweats: 1-Minimal Palms Moist Orientation: 0-Oriented Tacttile Disturbances: 1-Very Mild Itch/Numbness Auditory Disturbances: 1-Very Mild Visual Disturbances: 0-None Headache: 2-Mild CIWA-Ar Total Score: 17 BHS Progress Note (SOAP) Subjective: ALERT,IRRITABLE,ANXIOUS,INTERRUPTED SLEEP,TREMOR Objective: 01/27/18 12:10 Vital Signs Temperature 97.5 F L 01/27/18 10:00 Pulse Rate 73 01/27/18 10:00 Respiratory Rate 20 01/27/18 10:00 Blood Pressure 136/64 01/27/18 10:00 O2 Sat by Pulse Oximetry (%) EKG NSR,NORMAL ECG Laboratory Last Values WBC 7.7 K/mm3 (4.0-10.0) D 01/26/18 08:00 RBC 4.60 M/mm3 (4.00-5.60) 01/26/18 08:00 Hgb 14.1 GM/dL (11.7-16.9) 01/26/18 08:00 Hct 42.5 % (35.4-49) 01/26/18 08:00 MCV 92.3 fl (80-96) 01/26/18 08:00 MCH 30.7 pg (25.7-33.7) 01/26/18 08:00 MCHC 33.3 g/dl (32.0-35.9) 01/26/18 08:00 RDW 13.7 % (11.9-15.9) 01/26/18 08:00 Plt Count 197 K/MM3 (134-434) D 01/26/18 08:00 MPV 10.6 fl (7.5-11.1) 01/26/18 08:00 Sodium 143 mmol/L (136-145) 01/26/18 08:00 Potassium 4.1 mmol/L (3.5-5.1) 01/26/18 08:00 Chloride 107 mmol/L (98-107) 01/26/18 08:00 Carbon Dioxide 27 mmol/L (21-32) 01/26/18 08:00 Anion Gap 9 (8-16) 01/26/18 08:00 BUN 9 mg/dL (7-18) D 01/26/18 08:00 Creatinine 0.9 mg/dL (0.7-1.3) D 01/26/18 08:00 Creat Clearance w eGFR > 60 (>60) 01/26/18 08:00 Random Glucose 113 mg/dL (74-106) H 01/26/18 08:00 Calcium 8.5 mg/dL (8.5-10.1) 01/26/18 08:00 Total Bilirubin 0.3 mg/dL (0.2-1.0) D 01/26/18 08:00 AST 18 U/L (15-37) D 01/26/18 08:00 ALT 20 U/L (12-78) D 01/26/18 08:00 Alkaline Phosphatase 80 U/L (45-117) 01/26/18 08:00 Total Protein 6.8 g/dl (6.4-8.2) 01/26/18 08:00 Albumin 3.4 g/dl (3.4-5.0) D 01/26/18 08:00 Urine Color Yellow 01/26/18 09:30 Urine Appearance Clear 01/26/18 09:30 Urine pH 6.0 (5.0-8.0) 01/26/18 09:30 Ur Specific [place] 1.019 (1.001-1.035) 01/26/18 09:30 Urine Protein Negative (NEGATIVE) 01/26/18 09:30 Urine Glucose (UA) Negative (NEGATIVE) 01/26/18 09:30 Urine Ketones Negative (NEGATIVE) 01/26/18 09:30 Urine Blood Negative (NEGATIVE) 01/26/18 09:30 Urine Nitrite Negative (NEGATIVE) 01/26/18 09:30 Urine Bilirubin Negative (NEGATIVE) 01/26/18 09:30 Urine Urobilinogen Negative mg/dL (0.2-1.0) 01/26/18 09:30 Ur Leukocyte Esterase Negative (NEGATIVE) 01/26/18 09:30 RPR Titer Nonreactive (NONREACTIVE) 01/26/18 08:00 Assessment: 01/27/18 12:12 WITHDRAWAL SYMPTOM Plan: CONTINUE DETOX
[2018-01-27] MEDS: chlordiazePOXIDE 5 MG CAPSULE PO SCH (22:25)
[2018-01-27] MEDS: THIAMINE HCL 100 MG TABLET (FP) PO SCH (22:25)
[2018-01-27] MEDS: QUEtiapine FUMARATE 100 MG TABLET (FP) PO SCH (22:25)
[2018-01-28] MEDS: chlordiazePOXIDE 5 MG CAPSULE PO SCH ×3 (05:58→17:51)
[2018-01-28] MEDS: PRENATAL VITAMINS W/ FOLIC ACID TABLET (FP) PO SCH (10:21)
[2018-01-28] MEDS: PANTOPRAZOLE 40 MG TABLET (FP) PO SCH (10:21)
[2018-01-28] MEDS: SERTRALINE HCL 50 MG TABLET (FP) PO SCH (10:21)
[2018-01-28] MEDS: NICOTINE 14 MG/24 HOURS TOPICAL PATCH TD SCH (10:22)
--- NOTE | 2018-01-28 11:42 | PN ---
S Progress Note (SOAP) Subjective: ALERT,IRRITABLE,ANXIOUS,INTERRUPTED SLEEP Objective: 01/28/18 11:41 Vital Signs Temperature 96.6 F L 01/28/18 06:00 Pulse Rate 81 01/28/18 06:00 Respiratory Rate 20 01/28/18 06:00 Blood Pressure 106/56 01/28/18 06:00 O2 Sat by Pulse Oximetry (%) Assessment: 01/28/18 11:41 WITHDRAWAL SYMPTOM Plan: CONTINUE DETOX,DISCHARGE IN AM
[2018-01-28] MEDS: COLLOIDAL OATMEAL 1 BAR EACH TP PRN (17:53)
[2018-01-28] MEDS: THIAMINE HCL 100 MG TABLET (FP) PO SCH (22:54)
[2018-01-28] MEDS: QUEtiapine FUMARATE 100 MG TABLET (FP) PO SCH (22:54)
[2018-01-28] MEDS: chlordiazePOXIDE HCL 10 MG CAPSULE PO SCH (23:00)
[2018-01-29] MEDS: chlordiazePOXIDE HCL 10 MG CAPSULE PO SCH ×2 (05:55→11:01)
--- NOTE | 2018-01-29 09:31 | PN ---
S Progress Note (SOAP) Subjective: ALERT,NO COMPLAINT Objective: 01/29/18 09:29 Vital Signs Temperature 98.1 F 01/29/18 06:24 Pulse Rate 62 01/29/18 06:24 Respiratory Rate 20 01/29/18 06:24 Blood Pressure 126/76 01/29/18 06:24 O2 Sat by Pulse Oximetry (%) Assessment: 01/29/18 09:30 NO WITHDRAWAL SYMPTOM Plan: DISCHARGE TODAY,FOLLOW UP WITH [facility]
--- NOTE | 2018-01-29 09:34 | DS ---
[facility] Detox Discharge Summary Admission Date: 01/25/18 Discharge Date: 01/29/18 - History Present History: Alcohol Dependence, Cocaine Dependence Additional Comments: FOLLOW UP WITH [facility] Pertinent Past History: GERD LOW BACK PAIN NICOTINE DEPENDENCE SCHIZOAFFECTIVE DISORDER BIPOLAR DISORDER PTSD - Physical Exam Results Vital Signs: Vital Signs Temperature 98.1 F 01/29/18 06:24 Pulse Rate 62 01/29/18 06:24 Respiratory Rate 20 01/29/18 06:24 Blood Pressure 126/76 01/29/18 06:24 O2 Sat by Pulse Oximetry (%) Pertinent Admission Physical Exam Findings: WITHDRAWAL SYMPTOM AND SIGN - Treatment Hospital Course: Detox Protocol Followed, Detoxed Safely, Responded well, Discharged Condition Good, Rehab Referral Accepted Patient has Accepted a Rehab Referral to: [facility] - Medication Discharge Medications: Ambulatory Orders Sertraline HCl [Zoloft] 100 mg PO DAILY 07/30/17 Famotidine [Pepcid] 40 mg PO DAILY 01/25/18 Quetiapine Fumarate [Seroquel] 100 mg PO HS 01/25/18 - Diagnosis (1) Alcohol dependence with withdrawal, uncomplicated Current Visit: Yes Status: Chronic (2) Cocaine dependence, uncomplicated Current Visit: Yes Status: Acute (3) Low back pain Current Visit: Yes Status: Chronic (4) GERD (gastroesophageal reflux disease) Current Visit: No Status: Chronic Qualifiers: Esophagitis presence: without esophagitis Qualified Code(s): K21.9 - Gastro -esophageal reflux disease without esophagitis (5) Nicotine dependence Current Visit: No Status: Chronic Qualifiers: Nicotine product type: cigarettes Substance use status: in withdrawal Qualified Code(s): F17.213 - Nicotine dependence, cigarettes, with withdrawal (6) PTSD (post-traumatic stress disorder) Current Visit: No Status: Chronic (7) Schizoaffective disorder Current Visit: No Status: Chronic (8) Bipolar disorder Current Visit: No Status: Ruled-out - AMA Did Patient Leave Against Medical Advice: No
[2018-01-29 10:52] VITALS: BP 113/75; PULSE 92; TEMP 97.2
[2018-01-29] MEDS: PRENATAL VITAMINS W/ FOLIC ACID TABLET (FP) PO SCH (11:00)
[2018-01-29] MEDS: SERTRALINE HCL 50 MG TABLET (FP) PO SCH (11:00)
[2018-01-29] MEDS: NICOTINE 14 MG/24 HOURS TOPICAL PATCH TD SCH (11:01)
[2018-01-29] MEDS: PANTOPRAZOLE 40 MG TABLET (FP) PO SCH (11:01)
== END 2018-01-29 12:27 | disposition other institution (70) | DRG 774 ==
LOC: YASAS 13:48 → Y6N 21:54
PROVIDERS: ADMIT Internal Medicine; ATTEND Internal Medicine
PROC: HZ2ZZZZ Detoxification Services for Substance Abuse Treatment (ICD-10-PCS; principal; 2018-01-25)
DX: F10.230 Alcohol dependence with withdrawal, uncomplicated (principal); F14.20 Cocaine dependence, uncomplicated; F17.213 Nicotine dependence, cigarettes, with withdrawal; F43.10 Post-traumatic stress disorder, unspecified; F25.9 Schizoaffective disorder, unspecified; F31.9 Bipolar disorder, unspecified; F19.280 Other psychoactive substance dependence with psychoactive substance-induced anxiety disorder; F19.282 Other psychoactive substance dependence with psychoactive substance-induced sleep disorder; K21.9 Gastro-esophageal reflux disease without esophagitis; M54.5 Low back pain; G89.29 Other chronic pain; E66.01 Morbid (severe) obesity due to excess calories; Z68.41 Body mass index [BMI] 40.0-44.9, adult; Z91.013 Allergy to seafood; Z91.5 Personal history of self-harm
CPT/HCPCS: 36415; 80053; 81003; 85027; 86593; 93005; 93010

== ENCOUNTER 2018-01-29 13:05 | Inpatient (IN) | payer OTHER ==
[2018-01-29] MEDS ORDERED: NICOTINE POLACRILEX 2 MG GUM BUC PRN (16:41)
[2018-01-29] MEDS ORDERED: MAGNESIUM HYDROX 2400MG/30ML ORAL SUSPENSION 30 ML CUP PO PRN (16:41)
[2018-01-29] MEDS ORDERED: MENTHOL/PHENOL 1 EACH UD MM PRN (16:41)
[2018-01-29] MEDS ORDERED: IBUPROFEN 400 MG TABLET (FP) PO PRN (16:41)
[2018-01-29] MEDS ORDERED: LOPERAMIDE HCL 2 MG CAPSULE PO PRN (16:41)
[2018-01-29] MEDS ORDERED: ACETAMINOPHEN 325 MG TABLET (FP) PO PRN (16:41)
[2018-01-29] MEDS ORDERED: hydrOXYzine PAMOATE 50 MG CAPSULE (FP) PO PRN (16:41)
[2018-01-29] MEDS ORDERED: P-EPHED 60MG/TRIPROLIDI 2.5MG TABLET PO PRN (16:41)
[2018-01-29] MEDS ORDERED: guaiFENesin/D-METHORPHAN HB 10 ML UNIT-DOSE CUPS PO PRN (16:41)
[2018-01-29] MEDS ORDERED: MAGNESIUM CITRATE 300 ML BOTTLE PO PRN (16:41)
--- NOTE | 2018-01-29 16:41 | HP ---
VLADIMIR BILLINGS Rehab Assess/Revision - Admission History [facility] Date of Admission to Rehab: 01/29/2018 - Vital signs Vital Signs: Vital Signs Period Temp Pulse Resp BP Sys/Arzate Pulse Ox Last 24 Hr 98.7 F 87 20 118/72 - Findings Detox History & Physical reviewed: Yes Concur with findings: Yes Inpatient Rehab Admission - Initial Determination Are CD services needed?: Yes Free of communicable disease: Yes Not in need of hospitalization: Yes - Rehab Admission Criteria Lacks judgement: Yes Patient is meeting Inpatient Rehab admission criteria:: Yes
[2018-01-29] MEDS: MAG HYDROX/AL HYDROX/SIMETH 30 ML UNIT-DOSE CUP PO PRN (17:49)
[2018-01-29] MEDS: THIAMINE HCL 100 MG TABLET (FP) PO SCH (21:38)
[2018-01-29] MEDS: QUEtiapine FUMARATE 100 MG TABLET (FP) PO SCH (21:38)
[2018-01-30] MEDS ORDERED: NICOTINE 14 MG/24 HOURS TOPICAL PATCH TD SCH (10:00)
[2018-01-30] MEDS: SERTRALINE HCL 50 MG TABLET (FP) PO SCH (10:14)
[2018-01-30] MEDS: PANTOPRAZOLE 40 MG TABLET (FP) PO SCH (10:14)
[2018-01-30] MEDS: PRENATAL VITAMINS W/ FOLIC ACID TABLET (FP) PO SCH (10:14)
[2018-01-30] MEDS: IBUPROFEN 400 MG TABLET (FP) PO PRN ×2 (12:41→21:46)
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
[2018-01-30] MEDS: QUEtiapine FUMARATE 100 MG TABLET (FP) PO SCH (21:44)
[2018-01-30] MEDS: THIAMINE HCL 100 MG TABLET (FP) PO SCH (21:45)
[2018-01-31] MEDS: PRENATAL VITAMINS W/ FOLIC ACID TABLET (FP) PO SCH (10:30)
[2018-01-31] MEDS: PANTOPRAZOLE 40 MG TABLET (FP) PO SCH (10:30)
[2018-01-31] MEDS: SERTRALINE HCL 50 MG TABLET (FP) PO SCH (10:30)
[2018-01-31] MEDS: THIAMINE HCL 100 MG TABLET (FP) PO SCH (21:39)
[2018-01-31] MEDS: QUEtiapine FUMARATE 100 MG TABLET (FP) PO SCH (21:39)
[2018-02-01] MEDS: IBUPROFEN 400 MG TABLET (FP) PO PRN ×2 (08:23→18:33)
[2018-02-01] MEDS: SERTRALINE HCL 50 MG TABLET (FP) PO SCH (10:06)
[2018-02-01] MEDS: PANTOPRAZOLE 40 MG TABLET (FP) PO SCH (10:06)
[2018-02-01] MEDS: PRENATAL VITAMINS W/ FOLIC ACID TABLET (FP) PO SCH (10:06)
[2018-02-01] MEDS: THIAMINE HCL 100 MG TABLET (FP) PO SCH (21:49)
[2018-02-01] MEDS: QUEtiapine FUMARATE 100 MG TABLET (FP) PO SCH (21:49)
[2018-02-02] MEDS: PRENATAL VITAMINS W/ FOLIC ACID TABLET (FP) PO SCH (10:12)
[2018-02-02] MEDS: PANTOPRAZOLE 40 MG TABLET (FP) PO SCH (10:12)
[2018-02-02] MEDS: SERTRALINE HCL 50 MG TABLET (FP) PO SCH (10:12)
[2018-02-02] MEDS: IBUPROFEN 400 MG TABLET (FP) PO PRN (17:26)
[2018-02-02] MEDS: QUEtiapine FUMARATE 100 MG TABLET (FP) PO SCH (21:45)
[2018-02-02] MEDS: THIAMINE HCL 100 MG TABLET (FP) PO SCH (21:45)
[2018-02-03] MEDS: SERTRALINE HCL 50 MG TABLET (FP) PO SCH (09:47)
[2018-02-03] MEDS: PRENATAL VITAMINS W/ FOLIC ACID TABLET (FP) PO SCH (09:47)
[2018-02-03] MEDS: PANTOPRAZOLE 40 MG TABLET (FP) PO SCH (09:47)
[2018-02-03] MEDS: IBUPROFEN 400 MG TABLET (FP) PO PRN (19:34)
[2018-02-03] MEDS: QUEtiapine FUMARATE 100 MG TABLET (FP) PO SCH (21:40)
[2018-02-03] MEDS: THIAMINE HCL 100 MG TABLET (FP) PO SCH (21:40)
[2018-02-04] MEDS: IBUPROFEN 400 MG TABLET (FP) PO PRN (08:28)
[2018-02-04] MEDS: SERTRALINE HCL 50 MG TABLET (FP) PO SCH (09:41)
[2018-02-04] MEDS: PRENATAL VITAMINS W/ FOLIC ACID TABLET (FP) PO SCH (09:41)
[2018-02-04] MEDS: PANTOPRAZOLE 40 MG TABLET (FP) PO SCH (09:42)
[2018-02-04] MEDS ORDERED: ONDANSETRON *ODT* 4 MG TABLET SL PRN (14:06)
--- NOTE | 2018-02-04 14:09 | PN ---
BHS Progress Note (SOAP) Subjective: C/O THIRST, DIZZINESS, REQUESTING WATER PITCHER AND NAUSEA MEDICATIONS Objective: 02/04/18 14:08 Vital Signs - 24 hr 02/04/18 02/04/18 02/04/18 00:30 03:30 07:06 Temperature 98.3 F Pulse Rate 63 Respiratory 18 18 20 Rate Blood Pressure 123/70 LABS REVEIWED Assessment: 02/04/18 14:09 DEHYDRATION - WTAER PITCHER, ZOFRAN FOR NAUSE, BEDREST
[2018-02-04] MEDS ORDERED: ONDANSETRON *ODT* 4 MG TABLET SL ONE (14:25)
[2018-02-04] MEDS: QUEtiapine FUMARATE 100 MG TABLET (FP) PO SCH (21:36)
[2018-02-04] MEDS: THIAMINE HCL 100 MG TABLET (FP) PO SCH (21:36)
[2018-02-05] MEDS: SERTRALINE HCL 50 MG TABLET (FP) PO SCH (09:33)
[2018-02-05] MEDS: PANTOPRAZOLE 40 MG TABLET (FP) PO SCH (09:33)
[2018-02-05] MEDS: PRENATAL VITAMINS W/ FOLIC ACID TABLET (FP) PO SCH (09:33)
[2018-02-05] MEDS: QUEtiapine FUMARATE 100 MG TABLET (FP) PO SCH (22:51)
[2018-02-05] MEDS: THIAMINE HCL 100 MG TABLET (FP) PO SCH (22:51)
[2018-02-06] MEDS: PRENATAL VITAMINS W/ FOLIC ACID TABLET (FP) PO SCH (10:11)
[2018-02-06] MEDS: PANTOPRAZOLE 40 MG TABLET (FP) PO SCH (10:11)
[2018-02-06] MEDS: SERTRALINE HCL 50 MG TABLET (FP) PO SCH (10:11)
[2018-02-06] MEDS: IBUPROFEN 400 MG TABLET (FP) PO PRN ×2 (14:26→20:49)
--- NOTE | 2018-02-06 17:22 | PN ---
[facility] Progress Note Note: Patient reports pain on the right should and the left leg, denies chest pain, SOB or dyspnea. Reports family hx of blood disorder and requested INR check. Patient in no apparent distress, AOx3, ambulating in the unit. Patient educated on the importance to follow up with PCP for continuity of care Educate on the importance to complete rehab Ibuprofen 800mg q8h PRN for musculoskeletal pain Continue to ambulate Continue to monitor PT/INR order
[2018-02-06] MEDS: THIAMINE HCL 100 MG TABLET (FP) PO SCH (21:54)
[2018-02-06] MEDS: QUEtiapine FUMARATE 100 MG TABLET (FP) PO SCH (21:54)
[2018-02-07] MEDS: SERTRALINE HCL 50 MG TABLET (FP) PO SCH (09:26)
[2018-02-07] MEDS: PANTOPRAZOLE 40 MG TABLET (FP) PO SCH (09:26)
[2018-02-07] MEDS: PRENATAL VITAMINS W/ FOLIC ACID TABLET (FP) PO SCH (09:26)
[2018-02-07 10:33] LABS: INR 1.01 (0.82-1.09); PROTHROMBIN TIME (PATIENT) 11.4 SEC (9.98-11.88)
[2018-02-07] MEDS: THIAMINE HCL 100 MG TABLET (FP) PO SCH (21:50)
[2018-02-07] MEDS: QUEtiapine FUMARATE 100 MG TABLET (FP) PO SCH (21:50)
[2018-02-08] MEDS: PANTOPRAZOLE 40 MG TABLET (FP) PO SCH (10:32)
[2018-02-08] MEDS: SERTRALINE HCL 50 MG TABLET (FP) PO SCH (10:32)
[2018-02-08] MEDS: PRENATAL VITAMINS W/ FOLIC ACID TABLET (FP) PO SCH (10:32)
[2018-02-08] MEDS: IBUPROFEN 400 MG TABLET (FP) PO PRN (18:12)
[2018-02-08] MEDS: QUEtiapine FUMARATE 100 MG TABLET (FP) PO SCH (21:55)
[2018-02-08] MEDS: THIAMINE HCL 100 MG TABLET (FP) PO SCH (21:55)
[2018-02-09] MEDS: SERTRALINE HCL 50 MG TABLET (FP) PO SCH (10:40)
[2018-02-09] MEDS: PANTOPRAZOLE 40 MG TABLET (FP) PO SCH (10:40)
[2018-02-09] MEDS: PRENATAL VITAMINS W/ FOLIC ACID TABLET (FP) PO SCH (10:41)
[2018-02-09] MEDS: QUEtiapine FUMARATE 100 MG TABLET (FP) PO SCH (22:01)
[2018-02-09] MEDS: THIAMINE HCL 100 MG TABLET (FP) PO SCH (22:01)
[2018-02-10] MEDS: PANTOPRAZOLE 40 MG TABLET (FP) PO SCH (10:38)
[2018-02-10] MEDS: PRENATAL VITAMINS W/ FOLIC ACID TABLET (FP) PO SCH (10:38)
[2018-02-10] MEDS: SERTRALINE HCL 50 MG TABLET (FP) PO SCH (10:38)
[2018-02-10] MEDS: MAG HYDROX/AL HYDROX/SIMETH 30 ML UNIT-DOSE CUP PO PRN ×2 (11:39→18:17)
[2018-02-10] MEDS: IBUPROFEN 400 MG TABLET (FP) PO PRN (18:17)
[2018-02-10] MEDS: QUEtiapine FUMARATE 100 MG TABLET (FP) PO SCH (21:32)
[2018-02-10] MEDS: THIAMINE HCL 100 MG TABLET (FP) PO SCH (21:32)
[2018-02-11] MEDS: SERTRALINE HCL 50 MG TABLET (FP) PO SCH (09:52)
[2018-02-11] MEDS: PRENATAL VITAMINS W/ FOLIC ACID TABLET (FP) PO SCH (09:52)
[2018-02-11] MEDS: PANTOPRAZOLE 40 MG TABLET (FP) PO SCH (09:52)
[2018-02-11] MEDS: THIAMINE HCL 100 MG TABLET (FP) PO SCH (21:50)
[2018-02-11] MEDS: QUEtiapine FUMARATE 100 MG TABLET (FP) PO SCH (21:50)
[2018-02-12 07:01] VITALS: BP 120/63; PULSE 67; TEMP 97.6
--- NOTE | 2018-02-12 09:52 | PN ---
Psychiatric Progress Note Vital Signs: Vital Signs Period Temp Pulse Resp BP Sys/Arzaet Pulse Ox Last 24 Hr 97.6 F 67 18-20 120/63 Date of Session: 02/12/18 Chief Complaint:: discharge visit HPI: Patient addressing Alcohol and Cocaine Dependence comorbid with Schizoaffective Disorder, Bipolar and Posttraumatic Stress Disorder ROS: GERD, LBP, Morbid Obesity were medically managed Current Medications: Active Medications Generic Name Dose Route Start Last Admin Trade Name Freq PRN Reason Stop Dose Admin Acetaminophen 650 mg 01/29/18 16:41 Tylenol - PO Q4H PRN FEVER Al Hydroxide/Mg Hydroxide 30 ml 01/29/18 16:41 02/10/18 18:17 Mylanta Oral Suspension - PO 30 ml Q6H PRN Administration DYSPEPSIA Eucalyptus/Menthol/Phenol/Sorbitol 1 each 01/29/18 16:41 Cepastat Lozenge - MM Q4H PRN SORE THROAT Guaifenesin 10 ml 01/29/18 16:41 Robitussin Dm - PO Q6H PRN COUGH Hydroxyzine Pamoate 50 mg 01/29/18 16:41 Vistaril - PO Q4H PRN AGITATION Ibuprofen 800 mg 01/30/18 12:28 02/10/18 18:17 Motrin - PO 800 mg Q6H PRN Administration Pain Level 4-6 Loperamide HCl 4 mg 01/29/18 16:41 Imodium - PO Q6H PRN DIARRHEA Magnesium Citrate 300 ml 01/29/18 16:41 Citroma - PO Q48H PRN CONSTIPATION Magnesium Hydroxide 30 ml 01/29/18 16:41 Milk Of Magnesia - PO DAILY PRN CONSTIPATION Ondansetron HCl 4 mg 02/04/18 14:06 Zofran Odt - SL Q6H PRN NAUSEA AND/OR VOMITING Pantoprazole Sodium 40 mg 01/30/18 10:00 02/11/18 09:52 Protonix - PO 40 mg DAILY JONAH Administration Multivit/Folic Acid/Iron 1 tab 01/30/18 10:00 02/11/18 09:52 Vitamins (Sjr) - PO 1 tab DAILY JONAH Administration Pseudoephedrine/Triprolidine 1 combo 01/29/18 16:41 Actifed - PO TID PRN NASAL CONGESTION Quetiapine Fumarate 100 mg 01/29/18 22:00 02/11/18 21:50 Seroquel - PO Not Given HS JONAH Sertraline HCl 100 mg 01/30/18 10:00 02/11/18 09:52 Zoloft - PO 100 mg DAILY JONAH Administration Thiamine HCl 100 mg 01/29/18 22:00 02/11/18 21:50 Vitamin B1 - PO Not Given HS JONAH Provider note:: Patient has completed today this program has met his treatment goals and will continue to address his issues in outpatient treatment at [facility]. He responded well to Zoloft 100 mg po daily and Seroquel 100 mg po HS , reports he has medications at home and does not need any scripts, patient was encouraged to take medications as directed and utilize all supports availbale to prevent relapses. He is stable for discharge today. Total face to face time:: 25 Mental Status Exam - Mental Status Exam Alert and Oriented to: Time, Place, Person Cognitive Function: Good Patient Appearance: Well Groomed Mood: Hopeful Affect: Appropriate, Mood Congruent Patient Behavior: Appropriate, Cooperative Speech Pattern: Clear, Appropriate Voice Loudness: Normal Thought Process: Intact, Goal Oriented Thought Disorder: Not Present Hallucinations: Denies Suicidal Ideation: Denies Homicidal Ideation: Denies Insight/Judgement: Fair Sleep: Fair Appetite: Fair Muscle strength/Tone: Normal Gait/Station: Normal Psychiatric Treatment Plan - Problem List (1) Schizoaffective disorder, bipolar type Current Visit: Yes (2) Alcohol dependence Current Visit: No (3) Cocaine dependence Current Visit: No (4) PTSD (post-traumatic stress disorder) Current Visit: No
[2018-02-12] MEDS: SERTRALINE HCL 50 MG TABLET (FP) PO SCH (09:59)
[2018-02-12] MEDS: PANTOPRAZOLE 40 MG TABLET (FP) PO SCH (09:59)
[2018-02-12] MEDS: PRENATAL VITAMINS W/ FOLIC ACID TABLET (FP) PO SCH (09:59)
== END 2018-02-12 11:10 | disposition home or self-care (01) | DRG 772 ==
LOC: YASAS 13:05 → Y5N 13:08
PROVIDERS: ADMIT Psychiatry & Neurology Psychiatry; ATTEND Psychiatry & Neurology Psychiatry
PROC: HZ42ZZZ Group Counseling for Substance Abuse Treatment, Cognitive-Behavioral (ICD-10-PCS; principal; 2018-01-29)
DX: F10.20 Alcohol dependence, uncomplicated (principal); F14.20 Cocaine dependence, uncomplicated; F25.0 Schizoaffective disorder, bipolar type; F43.10 Post-traumatic stress disorder, unspecified; K21.9 Gastro-esophageal reflux disease without esophagitis; M54.5 Low back pain; E66.01 Morbid (severe) obesity due to excess calories; Z68.41 Body mass index [BMI] 40.0-44.9, adult
CPT/HCPCS: 36415; 85610; Q0162

== ENCOUNTER 2018-07-29 12:09 | Inpatient (IN) | payer OTHER ==
[2018-07-29 12:54] VITALS: BMI 54.8
--- NOTE | 2018-07-29 20:01 | HP ---
Admission [facility] Chief Complaint: cocaine and alcohol rehab Allergies/Adverse Reactions: Allergies Allergy/AdvReac Type Severity Reaction Status Date / Time cranberry Allergy Severe Rash Verified 07/29/18 19:24 Fish Containing Products Allergy Severe Hives Verified 07/29/18 19:24 [Fish Product Derivatives] peach [[place]curry] Allergy Severe Rash Verified 07/29/18 19:24 No Known Drug Allergies Allergy Unknown Rash Verified 07/29/18 19:24 PEAS Allergy Mild Hives Uncoded 07/29/18 19:24 History of Present Illness: 48 yo male with hx of cocaine and alcohol dependence is here seeking rehab. PMHX: GERD, anxiety, depression, reports hx bipolar and schizophrenia. Reports completed detox at [facility] 07/25/18 - 07/29/18. Denies suicidal / homicidal ideation. Longest period of sobriety one year 2006. Exam Limitations: No Limitations - Ebola screening Have you traveled outside of the country in the last 21 days: No Have you had contact with anyone from an Ebola affected area: No Have you been sick,other than usual withdrawal symptoms: No Do you have a fever: No - Review of Systems Constitutional: No Symptoms Reported EENT: reports: No Symptoms Reported Respiratory: reports: No Symptoms reported Cardiac: reports: No Symptoms Reported GI: reports: No Symptoms Reported : reports: No Symptoms Reported Musculoskeletal: reports: Back Pain ([facility]) Integumentary: reports: No Symptoms Reported Neuro: reports: No Symptoms reported Endocrine: reports: Increased Thirst Hematology: reports: No Symptoms Reported Psychiatric: reports: Orientated x3, Anxious Other Systems: Reviewed and Negative Patient History - Patient Medical History Hx Anemia: No Hx Asthma: No Hx Chronic Obstructive Pulmonary Disease (COPD): No Hx Cancer: No Hx Cardiac Disorders: No Hx Congestive Heart Failure: No Hx Hypertension: No Hx Hypercholesterolemia: No Hx Pacemaker: No HX Cerebrovascular Accident: No Hx Seizures: No Hx Dementia: No Hx Diabetes: No Hx Gastrointestinal Disorders: Yes (GERD) Hx Liver Disease: No Hx Genitourinary Disorders: No Hx Sexually Transmitted Disorders: No Hx Renal Disease (ESRD): No Hx Thyroid Disease: No Hx Human Immunodeficiency Virus (HIV): No (NEGATIVE 2016) Hx Hepatitis C: No Hx Depression: Yes Hx Suicide Attempt: Yes (in 1999) Hx Bipolar Disorder: Yes Hx Schizophrenia: No - Patient Surgical History Past Surgical History: Yes Hx Neurologic Surgery: No Hx Cataract Extraction: No Hx Cardiac Surgery: No Hx Lung Surgery: No Hx Breast Surgery: No Hx Breast Biopsy: No Hx Abdominal Surgery: No Hx Appendectomy: Yes (1995 (appendectomy)) Hx Cholecystectomy: No Hx Genitourinary Surgery: No Hx Section: No Hx Orthopedic Surgery: No Anesthesia Reaction: No - PPD History Previous Implant?: No Documented Results: Negative w/proof Date: 07/26/17 Results: 0 mm PPD to be Administered?: Yes - Smoking Cessation Smoking history: Former smoker Have you smoked in the past 12 months: No Aproximately how many cigarettes per day: 0 If you are a former smoker, when did you quit?: 2015 Cigars Per Day: 0 Hx Chewing Tobacco Use: No Initiated information on smoking cessation: No - Substance & Tx. History Hx Alcohol Use: Yes Hx Substance Use: Yes Substance Use Type: Alcohol, Tranquilizers Hx Substance Use Treatment: Yes ([facility] 07/25/18 - 07/29/18.) - Substances Abused Alcohol Route: Oral Frequency: Daily Amount used: 2/5 liquor Age of first use: 11 Date of Last Use: 07/24/18 Cocaine Route: Inhalation Frequency: Daily Amount used: $100 Age of first use: 15 Date of Last Use: 07/24/18 Family Disease History - Family Disease History Family Disease History: Heart Disease: Grandparent (mi), Other: Mother (alcohol dependence ) Admission Physical Exam BHS - Vital Signs Vital Signs: Vital Signs - 24 hr 07/29/18 12:51 Temperature 97.5 F L Pulse Rate 85 Respiratory 20 Rate Blood Pressure 124/88 - Physical General Appearance: Yes: Disheveled, Obese, Irritable, Sweating HEENTM: Yes: EOMI, Hearing grossly Normal, Normal ENT Inspection, Normocephalic , Normal Voice, BLADIMIR, Pharynx Normal, Tm's normal Respiratory: Yes: Within Normal Limits Neck: Yes: Within Normal Limits Breast: Yes: Breast Exam Deferred Cardiology: Yes: Within Normal Limits Abdominal: Yes: Within Normal Limits Genitourinary: Yes: Within Normal Limits Musculoskeletal: Yes: Back pain Extremities: Yes: Normal Capillary Refill, Normal Inspection, Normal Range of Motion, Non-Tender Neurological: Yes: video tape transferrer II-XII NML intact, Fully Oriented, Alert, Motor Strength 5/5, Normal Response Integumentary: Yes: Normal Color, Dry, Warm Lymphatic: Yes: Within Normal Limits - Diagnostic (1) Alcohol dependence Current Visit: Yes Status: Acute (2) Cocaine dependence Current Visit: Yes Status: Acute (3) GERD (gastroesophageal reflux disease) Current Visit: Yes Status: Chronic Qualifiers: Esophagitis presence: without esophagitis Qualified Code(s): K21.9 - Gastro -esophageal reflux disease without esophagitis (4) Low back pain Current Visit: Yes Status: Chronic Qualifiers: Chronicity: chronic (5) Morbid obesity Current Visit: Yes Status: Chronic (6) Nicotine dependence Current Visit: Yes Status: Chronic Qualifiers: Nicotine product type: cigarettes Substance use status: in withdrawal Qualified Code(s): F17.213 - Nicotine dependence, cigarettes, with withdrawal BHS Breath Alcohol Content Breath Alcohol Content: 0 Urine Drug Screen - Results Drug Screen Negative: No Urine Drug Screen Results: MAMIE-Cocaine, BZO-Benzodiazepines Inpatient Rehab Admission - Initial Determination Are CD services needed?: Yes Free of communicable disease: Yes Not in need of hospitalization: Yes - Rehab Admission Criteria Previous failed treatment: Yes Poor recovery environment: Yes Comorbidities: Yes Lacks judgement: Yes Patient is meeting Inpatient Rehab admission criteria:: Yes
[2018-07-29] MEDS ORDERED: COLLOIDAL OATMEAL 1 BAR EACH TP PRN (20:09)
[2018-07-29] MEDS ORDERED: MENTHOL/PHENOL 1 EACH UD MM PRN (20:10)
[2018-07-29] MEDS ORDERED: MAGNESIUM HYDROX 2400MG/30ML ORAL SUSPENSION 30 ML CUP PO PRN (20:10)
[2018-07-29] MEDS ORDERED: MAGNESIUM CITRATE 300 ML BOTTLE PO PRN (20:10)
[2018-07-29] MEDS ORDERED: ACETAMINOPHEN 325 MG TABLET (FP) PO PRN (20:10)
[2018-07-29] MEDS ORDERED: MAG HYDROX/AL HYDROX/SIMETH 30 ML UNIT-DOSE CUP PO PRN (20:10)
[2018-07-29] MEDS ORDERED: P-EPHED 60MG/TRIPROLIDI 2.5MG TABLET PO PRN (20:10)
[2018-07-29] MEDS ORDERED: LOPERAMIDE HCL 2 MG CAPSULE PO PRN (20:10)
[2018-07-29] MEDS ORDERED: guaiFENesin/D-METHORPHAN HB 10 ML UNIT-DOSE CUPS PO PRN (20:10)
[2018-07-29] MEDS ORDERED: MELATONIN 5 MG TABLETS PO PRN (22:00)
[2018-07-30 01:51] LABS: URINE APPEARANCE SLCLOUDY; URINE BILIRUBIN NEGATIVE (<2.0 mg/dL); URINE COLOR YELLOW; URINE GLUCOSE (UA) NEGATIVE (NEGATIVE); URINE KETONE NEGATIVE (NEGATIVE); URINE LEUK ESTERASE NEGATIVE (NEGATIVE); URINE NITRITE NEGATIVE (NEGATIVE); URINE PROTEIN NEGATIVE (NEGATIVE); URINE UROBILINOGEN NEGATIVE mg/dL (0.2-1.0)
[2018-07-30] MEDS: PRENATAL VITAMINS W/ FOLIC ACID TABLET (FP) PO SCH (09:12)
[2018-07-30] MEDS: PANTOPRAZOLE 40 MG TABLET (FP) PO SCH (09:12)
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
[2018-07-30] MEDS: THIAMINE HCL 100 MG TABLET (FP) PO SCH ×2 (10:47→21:31)
[2018-07-30] MEDS: SERTRALINE HCL 50 MG TABLET (FP) PO SCH (11:52)
--- NOTE | 2018-07-30 12:31 | EKG ---
Test Reason : Blood Pressure : / mmHG Vent. Rate : 086 BPM Atrial Rate : 086 BPM P-R Int : 114 ms QRS Dur : 072 ms QT Int : 346 ms P-R-T Axes : 066 047 022 degrees QTc Int : 414 ms POOR DATA QUALITY, INTERPRETATION MAY BE ADVERSELY AFFECTED NORMAL SINUS RHYTHM NORMAL ECG WHEN COMPARED WITH ECG OF 25-JAN-2018 23:25, NO SIGNIFICANT CHANGE WAS FOUND Confirmed by TING BILLINGS, GEO ([id number]) on 07/30/2018 12:30:41 PM Referred By: Confirmed By:GEO MAGUIRE MD
[2018-07-30 16:04] LABS: HEMATOCRIT 45.9 % (35.4-49); MCH 30.3 pg (25.7-33.7); MCHC 32.7 g/dl (32.0-35.9); MEAN CELL VOLUME 92.8 fl (80-96); PLATELET COUNT 231 K/MM3 (134-434); RBC 4.94 M/mm3 (4.00-5.60); RDW 13.6 % (11.9-15.9); WHITE BLOOD COUNT 9.7 K/mm3 (4.0-10.0)
[2018-07-30 16:36] LABS: ALBUMIN 4.1 g/dl (3.4-5.0); ALK PHOS 93 U/L (45-117); ANION GAP 11 MMOL/L (8-16); BILIRUBIN,TOTAL 0.3 mg/dL (0.2-1.0); BLOOD UREA NITROGEN 10 mg/dL (7-18); CALCIUM 9.4 mg/dL (8.5-10.1); CHLORIDE 107 mmol/L (98-107); CO2 25 mmol/L (21-32); CREATININE 1.1 mg/dL (0.7-1.3); GLUCOSE,RANDOM 92 mg/dL (74-106); SGPT/ALT 28 U/L (12-78); SODIUM 143 mmol/L (136-145); TOT PROT 7.7 g/dl (6.4-8.2)
[2018-07-30 16:40] LABS: POTASSIUM 4.8 mmol/L (3.5-5.1)
[2018-07-30 16:41] LABS: SGOT/AST 23 U/L (15-37)
[2018-07-30] MEDS ORDERED: TUBERCULIN PPD 5 TU/0.1ML VIAL ID ONE (17:24)
[2018-07-30] MEDS: IBUPROFEN 400 MG TABLET (FP) PO PRN (19:44)
[2018-07-30] MEDS: QUEtiapine FUMARATE 400 MG TABLET PO SCH (21:31)
[2018-07-31] MEDS ORDERED: PATIENT'S OWN MEDICATION (NON-FORMULARY) (Sertraline Hcl [Zoloft] 100 MG) PO SCH (10:00)
[2018-07-31] MEDS: PRENATAL VITAMINS W/ FOLIC ACID TABLET (FP) PO SCH (10:02)
[2018-07-31] MEDS: SERTRALINE HCL 50 MG TABLET (FP) PO SCH (10:02)
[2018-07-31] MEDS: PANTOPRAZOLE 40 MG TABLET (FP) PO SCH (10:02)
[2018-07-31] MEDS: QUEtiapine FUMARATE 400 MG TABLET PO SCH (21:39)
[2018-07-31] MEDS: THIAMINE HCL 100 MG TABLET (FP) PO SCH (21:39)
[2018-08-01] MEDS: PRENATAL VITAMINS W/ FOLIC ACID TABLET (FP) PO SCH (10:30)
[2018-08-01] MEDS: SERTRALINE HCL 50 MG TABLET (FP) PO SCH (10:30)
[2018-08-01] MEDS: PANTOPRAZOLE 40 MG TABLET (FP) PO SCH (10:30)
[2018-08-01] MEDS: THIAMINE HCL 100 MG TABLET (FP) PO SCH (22:41)
[2018-08-01] MEDS: QUEtiapine FUMARATE 400 MG TABLET PO SCH (22:41)
[2018-08-02] MEDS: IBUPROFEN 400 MG TABLET (FP) PO PRN ×2 (08:00→21:07)
[2018-08-02] MEDS: PANTOPRAZOLE 40 MG TABLET (FP) PO SCH (10:18)
[2018-08-02] MEDS: SERTRALINE HCL 50 MG TABLET (FP) PO SCH (10:18)
[2018-08-02] MEDS: PRENATAL VITAMINS W/ FOLIC ACID TABLET (FP) PO SCH (10:18)
[2018-08-02] MEDS: QUEtiapine FUMARATE 400 MG TABLET PO SCH (21:07)
[2018-08-02] MEDS: THIAMINE HCL 100 MG TABLET (FP) PO SCH (21:08)
[2018-08-03] MEDS: PANTOPRAZOLE 40 MG TABLET (FP) PO SCH (10:15)
[2018-08-03] MEDS: PRENATAL VITAMINS W/ FOLIC ACID TABLET (FP) PO SCH (10:15)
[2018-08-03] MEDS: IBUPROFEN 400 MG TABLET (FP) PO PRN (10:15)
[2018-08-03] MEDS: SERTRALINE HCL 50 MG TABLET (FP) PO SCH (10:15)
[2018-08-03] MEDS: THIAMINE HCL 100 MG TABLET (FP) PO SCH (22:06)
[2018-08-03] MEDS: QUEtiapine FUMARATE 400 MG TABLET PO SCH (22:06)
--- NOTE | 2018-08-04 09:26 | PN ---
Psychiatric Progress Note Vital Signs: Vital Signs Period Temp Pulse Resp BP Sys/Arzate Pulse Ox Last 24 Hr - Date of Session: 08/04/18 Chief Complaint:: samira nervious since today is my grandmother's birthday HPI: Alcohol,Cocaine dependnce comorbid with Schizoaffective disorder,PTSD. ROS: GERD,Morbid obesity. Current Medications: Active Medications Generic Name Dose Route Start Last Admin Trade Name Freq PRN Reason Stop Dose Admin Acetaminophen 650 mg 07/29/18 20:10 Tylenol - PO Q4H PRN FEVER Al Hydroxide/Mg Hydroxide 30 ml 07/29/18 20:10 Mylanta Oral Suspension - PO Q6H PRN DYSPEPSIA Colloidal Oatmeal 1 applic 07/29/18 20:09 Aveeno Soap - TP DAILY PRN HYGEINE Eucalyptus/Menthol/Phenol/Sorbitol 1 each 07/29/18 20:10 Cepastat Lozenge - MM Q4H PRN SORE THROAT Guaifenesin 10 ml 07/29/18 20:10 Robitussin Dm - PO Q6H PRN COUGH Hydroxyzine Pamoate 50 mg 07/29/18 20:10 Vistaril - PO Q4H PRN AGITATION Ibuprofen 400 mg 07/29/18 20:10 08/03/18 10:15 Motrin - PO 400 mg Q6H PRN Administration Pain level 4-6 Loperamide HCl 4 mg 07/29/18 20:10 Imodium - PO Q6H PRN DIARRHEA Magnesium Citrate 300 ml 07/29/18 20:10 Citroma - PO Q48H PRN CONSTIPATION Magnesium Hydroxide 30 ml 07/29/18 20:10 Milk Of Magnesia - PO DAILY PRN CONSTIPATION Melatonin 5 mg 07/29/18 22:00 Melatonin PO HS PRN INSOMNIA Nicotine Polacrilex 2 mg 08/02/18 12:03 Nicorette Gum - BUC Q2H PRN NICOTINE REPLACEMENT RX Olanzapine 2.5 mg 08/04/18 09:12 Zyprexa - PO TID PRN AGITATION Pantoprazole Sodium 40 mg 07/30/18 10:00 08/03/18 10:15 Protonix - PO 40 mg DAILY JONAH Administration Multivit/Folic Acid/Iron 1 tab 07/30/18 10:00 08/03/18 10:15 Vitamins (Sjr) - PO 1 tab DAILY JONAH Administration Pseudoephedrine/Triprolidine 1 combo 07/29/18 20:10 Actifed - PO TID PRN NASAL CONGESTION Quetiapine Fumarate 400 mg 07/30/18 22:00 08/03/18 22:06 Seroquel - PO Not Given HS JONAH Thiamine HCl 100 mg 07/29/18 22:00 08/03/18 22:06 Vitamin B1 - PO Not Given HS JONAH Current Side Effect: No Lab tests ordered: No Lab tests reviewed: Yes Provider note:: Chart was revuewed,attending's note appreciated.Patient was evaluarted today.He address severe anxiety,thinking about his relatives ( lost his brother 6 yo,grandmother 4 yo).he reports that he is hearing voices of his relatives.patient is willing to be transferred to psychiatric hospital .patient denies active suicidal ideas,but still very negativistic preoccupied with his loses.Patient is willing to adjust Zoloft 150 mg po daily ,start Zyprexa 2,5 mg po prn. Mental Status Exam - Mental Status Exam Alert and Oriented to: Time, Place, Person Cognitive Function: Grossly Intact Patient Appearance: Unkempt Mood: Sad, Anxious Affect: Labile Patient Behavior: Cooperative Speech Pattern: Clear Voice Loudness: Normal Thought Process: Goal Oriented Thought Disorder: Present Hallucinations: Auditory Suicidal Ideation: Denies Homicidal Ideation: Denies Insight/Judgement: Fair Sleep: Difficulty falling asleep Appetite: Good, Weight gain Muscle strength/Tone: Normal Gait/Station: Normal Psychiatric Treatment Plan - Problem List (1) Alcohol dependence Current Visit: Yes (2) Cocaine dependence Current Visit: Yes (3) GERD (gastroesophageal reflux disease) Current Visit: Yes Qualifiers: Esophagitis presence: without esophagitis Qualified Code(s): K21.9 - Gastro -esophageal reflux disease without esophagitis (4) Low back pain Current Visit: Yes Qualifiers: Chronicity: chronic (5) Morbid obesity Current Visit: Yes (6) Nicotine dependence Current Visit: Yes Qualifiers: Nicotine product type: cigarettes Substance use status: in withdrawal Qualified Code(s): F17.213 - Nicotine dependence, cigarettes, with withdrawal (7) Schizoaffective disorder Current Visit: Yes Qualifiers: Schizoaffective disorder type: bipolar Qualified Code(s): F25.0 - Schizoaffective disorder, bipolar type (8) ptsd Current Visit: Yes
[2018-08-04] MEDS: PRENATAL VITAMINS W/ FOLIC ACID TABLET (FP) PO SCH (09:41)
[2018-08-04] MEDS: SERTRALINE HCL 50 MG TABLET (FP) PO SCH (09:41)
[2018-08-04] MEDS: PANTOPRAZOLE 40 MG TABLET (FP) PO SCH (09:41)
[2018-08-04] MEDS: OLANZapine 2.5 MG TABLET PO PRN ×2 (09:54→17:32)
[2018-08-04] MEDS: hydrOXYzine PAMOATE 50 MG CAPSULE (FP) PO PRN ×2 (11:51→17:32)
[2018-08-04] MEDS: THIAMINE HCL 100 MG TABLET (FP) PO SCH (21:50)
[2018-08-04] MEDS: QUEtiapine FUMARATE 400 MG TABLET PO SCH (21:51)
[2018-08-05] MEDS: PRENATAL VITAMINS W/ FOLIC ACID TABLET (FP) PO SCH (10:27)
[2018-08-05] MEDS: SERTRALINE HCL 50 MG TABLET (FP) PO SCH (10:27)
[2018-08-05] MEDS: PANTOPRAZOLE 40 MG TABLET (FP) PO SCH (10:27)
[2018-08-05] MEDS: OLANZapine 2.5 MG TABLET PO PRN (10:29)
[2018-08-05] MEDS: NICOTINE POLACRILEX 2 MG GUM BUC PRN (16:59)
[2018-08-05] MEDS: hydrOXYzine PAMOATE 50 MG CAPSULE (FP) PO PRN ×2 (16:59→21:35)
[2018-08-05] MEDS ORDERED: INSULIN (NOVOLOG) ASPART 100 UNITS/ML 10ML VIAL ONE (17:10)
[2018-08-05] MEDS: QUEtiapine FUMARATE 400 MG TABLET PO SCH (21:35)
[2018-08-05] MEDS: THIAMINE HCL 100 MG TABLET (FP) PO SCH (21:35)
[2018-08-06] MEDS: PRENATAL VITAMINS W/ FOLIC ACID TABLET (FP) PO SCH (10:31)
[2018-08-06] MEDS: SERTRALINE HCL 50 MG TABLET (FP) PO SCH (10:31)
[2018-08-06] MEDS: PANTOPRAZOLE 40 MG TABLET (FP) PO SCH (10:31)
[2018-08-06] MEDS: NICOTINE POLACRILEX 2 MG GUM BUC PRN ×2 (10:33→21:38)
[2018-08-06] MEDS: IBUPROFEN 400 MG TABLET (FP) PO PRN (18:57)
[2018-08-06] MEDS: THIAMINE HCL 100 MG TABLET (FP) PO SCH (21:38)
[2018-08-06] MEDS: QUEtiapine FUMARATE 400 MG TABLET PO SCH (21:38)
[2018-08-07] MEDS: SERTRALINE HCL 50 MG TABLET (FP) PO SCH (10:35)
[2018-08-07] MEDS: PRENATAL VITAMINS W/ FOLIC ACID TABLET (FP) PO SCH (10:36)
[2018-08-07] MEDS: PANTOPRAZOLE 40 MG TABLET (FP) PO SCH (10:36)
[2018-08-07] MEDS: QUEtiapine FUMARATE 400 MG TABLET PO SCH (23:02)
[2018-08-07] MEDS: THIAMINE HCL 100 MG TABLET (FP) PO SCH (23:02)
[2018-08-08] MEDS: PANTOPRAZOLE 40 MG TABLET (FP) PO SCH (09:38)
[2018-08-08] MEDS: SERTRALINE HCL 50 MG TABLET (FP) PO SCH (09:38)
[2018-08-08] MEDS: hydrOXYzine PAMOATE 50 MG CAPSULE (FP) PO PRN (09:39)
[2018-08-08] MEDS: PRENATAL VITAMINS W/ FOLIC ACID TABLET (FP) PO SCH (09:40)
[2018-08-08] MEDS ORDERED: ONDANSETRON *ODT* 4 MG TABLET SL PRN (15:08)
[2018-08-08] MEDS: NICOTINE POLACRILEX 2 MG GUM BUC PRN ×2 (15:37→17:44)
--- NOTE | 2018-08-08 15:49 | PN ---
[facility] Progress Note Note: Requesting nicotine patch. States must have been confused on admission cause he does smoke up to 1/2 PPD. States gum is not holding him. States vomited up pre- breakfast and breakfast meals. Vital Signs Temperature 98.8 F 08/08/18 07:14 Pulse Rate 82 08/08/18 07:14 Respiratory Rate 18 08/08/18 07:14 Blood Pressure 134/84 08/08/18 07:14 O2 Sat by Pulse Oximetry (%) Patient is alert and oriented. Protuberant abdomen r/t increased adiposity, soft and non-tender w/ (+) bowel sounds. Seen earlier for vomiting episode. It was noted that patient lays in bed after eating. Patient encouraged to eat slowly, drink hot tea and to not lay flat for at least 2 hours after eating. Will start on Nicotine patch in am.
[2018-08-08] MEDS: QUEtiapine FUMARATE 400 MG TABLET PO SCH (22:20)
[2018-08-08] MEDS: THIAMINE HCL 100 MG TABLET (FP) PO SCH (22:20)
[2018-08-09 07:00] VITALS: TEMP 98.5
[2018-08-09] MEDS: NICOTINE 7 MG/24 HOURS TOPICAL PATCH TD SCH (10:47)
[2018-08-09] MEDS: SERTRALINE HCL 50 MG TABLET (FP) PO SCH (10:47)
[2018-08-09] MEDS: PANTOPRAZOLE 40 MG TABLET (FP) PO SCH (10:47)
[2018-08-09] MEDS: PRENATAL VITAMINS W/ FOLIC ACID TABLET (FP) PO SCH (10:47)
[2018-08-09] MEDS: THIAMINE HCL 100 MG TABLET (FP) PO SCH (21:31)
[2018-08-09] MEDS: QUEtiapine FUMARATE 400 MG TABLET PO SCH (21:31)
[2018-08-09] MEDS: NICOTINE POLACRILEX 2 MG GUM BUC PRN (21:31)
[2018-08-10 06:47] VITALS: BP 128/73; PULSE 96
[2018-08-10] MEDS: NICOTINE 7 MG/24 HOURS TOPICAL PATCH TD SCH (10:32)
[2018-08-10] MEDS: PANTOPRAZOLE 40 MG TABLET (FP) PO SCH (10:32)
[2018-08-10] MEDS: PRENATAL VITAMINS W/ FOLIC ACID TABLET (FP) PO SCH (10:32)
[2018-08-10] MEDS: NICOTINE POLACRILEX 2 MG GUM BUC PRN (10:32)
[2018-08-10] MEDS: SERTRALINE HCL 50 MG TABLET (FP) PO SCH (10:32)
[2018-08-10] MEDS: THIAMINE HCL 100 MG TABLET (FP) PO SCH (22:11)
[2018-08-10] MEDS: QUEtiapine FUMARATE 400 MG TABLET PO SCH (22:11)
[2018-08-11] MEDS: NICOTINE POLACRILEX 2 MG GUM BUC PRN ×3 (07:04→21:46)
[2018-08-11] MEDS: SERTRALINE HCL 50 MG TABLET (FP) PO SCH (10:48)
[2018-08-11] MEDS: PANTOPRAZOLE 40 MG TABLET (FP) PO SCH (10:48)
[2018-08-11] MEDS: PRENATAL VITAMINS W/ FOLIC ACID TABLET (FP) PO SCH (10:48)
[2018-08-11] MEDS: NICOTINE 7 MG/24 HOURS TOPICAL PATCH TD SCH (10:49)
--- NOTE | 2018-08-11 12:35 | PN ---
[facility] Progress Note Note: Vital Signs Temperature 98.5 F 08/10/18 06:45 Pulse Rate 96 H 08/10/18 06:45 Respiratory Rate 18 08/11/18 06:52 Blood Pressure 128/73 08/10/18 06:45 O2 Sat by Pulse Oximetry (%) Patient schedule to complete program 08/12/18. Patient medically stable,. Patient to follow up with primary medical provider in 1 - 2 weeks. Follow up with out patient referral at [facility].
--- NOTE | 2018-08-11 14:16 | PN ---
Psychiatric Progress Note Vital Signs: Vital Signs Period Temp Pulse Resp BP Sys/Arzate Pulse Ox Last 24 Hr Date of Session: 08/11/18 Chief Complaint:: Discharge Note HPI: Patient addressing Alcohol and Cocaine Dependence comorbid with Nicotine Dependence and Schizoaffective Disorder ROS: GERD Current Medications: Active Medications Generic Name Dose Route Start Last Admin Trade Name Freq PRN Reason Stop Dose Admin Acetaminophen 650 mg 07/29/18 20:10 Tylenol - PO Q4H PRN FEVER Al Hydroxide/Mg Hydroxide 30 ml 07/29/18 20:10 08/08/18 07:54 Mylanta Oral Suspension - PO 30 ml Q6H PRN Administration DYSPEPSIA Colloidal Oatmeal 1 applic 07/29/18 20:09 Aveeno Soap - TP DAILY PRN HYGEINE Eucalyptus/Menthol/Phenol/Sorbitol 1 each 07/29/18 20:10 Cepastat Lozenge - MM Q4H PRN SORE THROAT Guaifenesin 10 ml 07/29/18 20:10 Robitussin Dm - PO Q6H PRN COUGH Hydroxyzine Pamoate 50 mg 07/29/18 20:10 08/08/18 09:39 Vistaril - PO 50 mg Q4H PRN Administration AGITATION Ibuprofen 400 mg 07/29/18 20:10 08/06/18 18:57 Motrin - PO 400 mg Q6H PRN Administration Pain level 4-6 Loperamide HCl 4 mg 07/29/18 20:10 Imodium - PO Q6H PRN DIARRHEA Magnesium Citrate 300 ml 07/29/18 20:10 Citroma - PO Q48H PRN CONSTIPATION Magnesium Hydroxide 30 ml 07/29/18 20:10 Milk Of Magnesia - PO DAILY PRN CONSTIPATION Melatonin 5 mg 07/29/18 22:00 Melatonin PO HS PRN INSOMNIA Nicotine 7 mg 08/09/18 10:00 08/11/18 10:49 Nicoderm Patch - TD 7 mg DAILY JONAH Administration Nicotine Polacrilex 2 mg 08/02/18 12:03 08/11/18 10:49 Nicorette Gum - BUC 2 mg Q2H PRN Administration NICOTINE REPLACEMENT RX Olanzapine 2.5 mg 08/04/18 09:12 08/05/18 10:29 Zyprexa - PO 2.5 mg TID PRN Administration AGITATION Ondansetron HCl 8 mg 08/08/18 15:08 Zofran Odt - SL Q8H PRN n/v Pantoprazole Sodium 40 mg 07/30/18 10:00 08/11/18 10:48 Protonix - PO 40 mg DAILY JOANH Administration Multivit/Folic Acid/Iron 1 tab 07/30/18 10:00 08/11/18 10:48 Vitamins (Sjr) - PO 1 tab DAILY JONAH Administration Pseudoephedrine/Triprolidine 1 combo 07/29/18 20:10 Actifed - PO TID PRN NASAL CONGESTION Quetiapine Fumarate 400 mg 07/30/18 22:00 08/10/18 22:11 Seroquel - PO Not Given HS JONAH Sertraline HCl 150 mg 08/04/18 10:00 08/11/18 10:48 Zoloft - PO 150 mg DAILY JONAH Administration Thiamine HCl 100 mg 07/29/18 22:00 08/10/18 22:11 Vitamin B1 - PO Not Given HS JONAH Current Side Effect: No Lab tests ordered: Yes Lab tests reviewed: Yes Provider note:: Patient will complete this program on 08/12/18. He has met his treatment goals and will continue to address his issues in outpatient treatment at [facility] Told instructional writer that from his participation in this program, he has learned the importance of surrounding himself with a sober support network in order to maintain abstinence. He responded well to Zoloft 150 mg po daily and Seroquel 400 mg po HS. Scripts for 30 days supply of medications will be electronicaly transmiltted to [facility] at [address] [place] [address]. He is stable for discharge on 08/12/18 Total face to face time:: 35 Mental Status Exam - Mental Status Exam Alert and Oriented to: Time, Place, Person Cognitive Function: Fair Patient Appearance: Well Groomed Mood: Hopeful, Euthymic Affect: Appropriate Patient Behavior: Cooperative Speech Pattern: Clear Voice Loudness: Normal Thought Process: Intact, Goal Oriented Thought Disorder: Not Present Hallucinations: Denies Suicidal Ideation: Denies Homicidal Ideation: Denies Insight/Judgement: Fair Sleep: Fair Appetite: Good Muscle strength/Tone: Normal Gait/Station: Normal Psychiatric Treatment Plan - Problem List (1) Alcohol dependence Current Visit: Yes (2) Cocaine dependence Current Visit: Yes (3) Nicotine dependence Current Visit: Yes Qualifiers: Nicotine product type: cigarettes Substance use status: in withdrawal Qualified Code(s): F17.213 - Nicotine dependence, cigarettes, with withdrawal (4) Schizoaffective disorder Current Visit: Yes Qualifiers: Schizoaffective disorder type: bipolar Qualified Code(s): F25.0 - Schizoaffective disorder, bipolar type (5) GERD (gastroesophageal reflux disease) Current Visit: Yes Qualifiers: Esophagitis presence: without esophagitis Qualified Code(s): K21.9 - Gastro -esophageal reflux disease without esophagitis (6) Low back pain Current Visit: Yes Qualifiers: Chronicity: chronic (7) Morbid obesity Current Visit: Yes Initial treatment plan: Patient will be discharged tomorrow and referred to [facility] for outpatient treatment
[2018-08-11] MEDS: QUEtiapine FUMARATE 400 MG TABLET PO SCH (21:45)
[2018-08-11] MEDS: THIAMINE HCL 100 MG TABLET (FP) PO SCH (21:46)
== END 2018-08-12 08:45 | disposition home or self-care (01) | DRG 772 ==
LOC: YASAS 12:09 → Y5N 22:17
PROVIDERS: ADMIT Psychiatry & Neurology Psychiatry; ATTEND Psychiatry & Neurology Psychiatry
PROC: HZ42ZZZ Group Counseling for Substance Abuse Treatment, Cognitive-Behavioral (ICD-10-PCS; principal; 2018-07-29)
DX: F10.20 Alcohol dependence, uncomplicated (principal); F14.20 Cocaine dependence, uncomplicated; F17.213 Nicotine dependence, cigarettes, with withdrawal; F25.0 Schizoaffective disorder, bipolar type; F31.9 Bipolar disorder, unspecified; F43.10 Post-traumatic stress disorder, unspecified; K21.9 Gastro-esophageal reflux disease without esophagitis; M54.5 Low back pain; E66.01 Morbid (severe) obesity due to excess calories; Z68.42 Body mass index [BMI] 45.0-49.9, adult; R11.10 Vomiting, unspecified; Z91.013 Allergy to seafood; Z91.018 Allergy to other foods
CPT/HCPCS: 36415; 80053; 81003; 85027; 86593; 87389; 93005; 93010

== ENCOUNTER 2018-11-21 08:22 | Inpatient (IN) | payer OTHER ==
[2018-11-21 08:56] VITALS: BMI 49.6
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
[2018-11-21] MEDS ORDERED: LOPERAMIDE HCL 2 MG CAPSULE PO PRN (09:48)
[2018-11-21] MEDS ORDERED: MAGNESIUM HYDROX 2400MG/30ML ORAL SUSPENSION 30 ML CUP PO PRN (09:48)
[2018-11-21] MEDS ORDERED: hydrOXYzine PAMOATE 50 MG CAPSULE (FP) PO PRN (09:48)
[2018-11-21] MEDS ORDERED: MENTHOL/PHENOL 1 EACH UD MM PRN (09:48)
[2018-11-21] MEDS ORDERED: MAG HYDROX/AL HYDROX/SIMETH 30 ML UNIT-DOSE CUP PO PRN (09:48)
[2018-11-21] MEDS ORDERED: IBUPROFEN 400 MG TABLET (FP) PO PRN (09:48)
[2018-11-21] MEDS ORDERED: ACETAMINOPHEN 325 MG TABLET (FP) PO PRN (09:48)
[2018-11-21] MEDS ORDERED: chlordiazePOXIDE HCL 25 MG CAPSULE PO PRN (09:48)
[2018-11-21] MEDS ORDERED: MAGNESIUM CITRATE 300 ML BOTTLE PO PRN (09:48)
[2018-11-21] MEDS: PRENATAL VITAMINS W/ FOLIC ACID TABLET (FP) PO SCH (11:28)
[2018-11-21] MEDS: chlordiazePOXIDE HCL 25 MG CAPSULE PO SCH ×3 (11:28→22:55)
[2018-11-21] MEDS: P-EPHED 60MG/TRIPROLIDI 2.5MG TABLET PO PRN (17:24)
[2018-11-21] MEDS: guaiFENesin/D-METHORPHAN HB 10 ML UNIT-DOSE CUPS PO PRN (17:25)
[2018-11-21] MEDS ORDERED: MELATONIN 5 MG TABLETS PO PRN (22:00)
[2018-11-21] MEDS: THIAMINE HCL 100 MG TABLET (FP) PO SCH (22:55)
[2018-11-22] MEDS: chlordiazePOXIDE HCL 25 MG CAPSULE PO SCH ×4 (05:45→23:10)
[2018-11-22] MEDS: P-EPHED 60MG/TRIPROLIDI 2.5MG TABLET PO PRN ×2 (05:46→17:05)
[2018-11-22] MEDS: guaiFENesin/D-METHORPHAN HB 10 ML UNIT-DOSE CUPS PO PRN ×2 (05:46→17:03)
[2018-11-22] MEDS: PRENATAL VITAMINS W/ FOLIC ACID TABLET (FP) PO SCH (10:31)
[2018-11-22 11:19] LABS: HEMOGLOBIN 13.9 GM/dL (11.7-16.9); MCH 30.1 pg (25.7-33.7); MCHC 32.3 g/dl (32.0-35.9); MEAN CELL VOLUME 93.1 fl (80-96); MEAN PLT VOLUME 11.4 fl (7.5-11.1); PLATELET COUNT 204 K/MM3 (134-434); RBC 4.61 M/mm3 (4.00-5.60); RDW 14.1 % (11.9-15.9); WHITE BLOOD COUNT 9.6 K/mm3 (4.0-10.0)
[2018-11-22 11:41] LABS: ALBUMIN 4.3 g/dl (3.4-5.0); ALK PHOS 90 U/L (45-117); ANION GAP 7 MMOL/L (8-16); BILIRUBIN,TOTAL 0.4 mg/dL (0.2-1); BLOOD UREA NITROGEN 13 mg/dL (7-18); CALCIUM 9.4 mg/dL (8.5-10.1); CHLORIDE 108 mmol/L (98-107); CO2 27 mmol/L (21-32); CREATININE 1.3 mg/dL (0.55-1.3); GLUCOSE,RANDOM 111 mg/dL (74-106); POTASSIUM 4.1 mmol/L (3.5-5.1); SGOT/AST 31 U/L (15-37); SGPT/ALT 27 U/L (13-61); SODIUM 141 mmol/L (136-145); TOT PROT 7.5 g/dl (6.4-8.2)
--- NOTE | 2018-11-22 15:42 | PN ---
S CIWA - CIWA Score Nausea/Vomitin Muscle Tremors: 4-Moderate,w/Arms Extend Anxiety: 3 Agitation: 1-Slight > Activity Paroxysmal Sweats: No Perspiration Orientation: 0-Oriented Tacttile Disturbances: 2-Mild Itch/Numbness/Burn Auditory Disturbances: 2-Mild Harshness/Frighten Visual Disturbances: 0-None Headache: 0-None Present CIWA-Ar Total Score: 15 [facility]HS Progress Note (SOAP) Subjective: Tremors, Nausea / Vomiting, Body Aches, Diarrhea. Objective: PATIENT A & O X 3. NO ACUTE DISTRESS. 11/22/18 15:43 Vital Signs Temperature 98.3 F 11/22/18 14:11 Pulse Rate 70 11/22/18 14:11 Respiratory Rate 20 11/22/18 14:11 Blood Pressure 124/70 11/22/18 14:11 O2 Sat by Pulse Oximetry (%) Laboratory Tests 11/22/18 11/22/18 11/22/18 05:45 05:45 05:45 WBC 9.6 RBC 4.61 Hgb 13.9 Hct 43.0 MCV 93.1 MCH 30.1 MCHC 32.3 RDW 14.1 Plt Count 204 MPV 11.4 H Sodium 141 Potassium 4.1 Chloride 108 H Carbon Dioxide 27 Anion Gap 7 L BUN 13 Creatinine 1.3 Creat Clearance w eGFR 58.43 Random Glucose 111 H Calcium 9.4 Total Bilirubin 0.4 AST 31 ALT 27 Alkaline Phosphatase 90 Total Protein 7.5 Albumin 4.3 RPR Titer Nonreactive LABS NOTED. Assessment: 11/22/18 15:44 WITHDRAWAL SYMPTOMS. Plan: CONTINUE DETOX.
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
[2018-11-22] MEDS ORDERED: QUEtiapine FUMARATE 200 MG TABLET ONE (20:49)
[2018-11-22] MEDS ORDERED: QUEtiapine FUMARATE 50 MG TABLET ONE (20:49)
[2018-11-22] MEDS ORDERED: QUEtiapine FUMARATE 200 MG TABLET PO SCH (22:00)
[2018-11-22] MEDS: THIAMINE HCL 100 MG TABLET (FP) PO SCH (23:10)
[2018-11-22] MEDS: QUETIAPINE FUMARATE 200 MG, QUETIAPINE FUMARATE 50 MG PO SCH (23:10)
[2018-11-23] MEDS: chlordiazePOXIDE HCL 25 MG CAPSULE PO SCH (05:28)
[2018-11-23] MEDS: chlordiazePOXIDE 5 MG CAPSULE PO SCH ×3 (10:08→22:38)
[2018-11-23] MEDS: PRENATAL VITAMINS W/ FOLIC ACID TABLET (FP) PO SCH (10:08)
[2018-11-23] MEDS: SERTRALINE HCL 50 MG TABLET (FP) PO SCH (10:08)
[2018-11-23] MEDS: P-EPHED 60MG/TRIPROLIDI 2.5MG TABLET PO PRN (10:10)
[2018-11-23] MEDS: guaiFENesin/D-METHORPHAN HB 10 ML UNIT-DOSE CUPS PO PRN (10:10)
[2018-11-23] MEDS ORDERED: IBUPROFEN 400 MG TABLET (FP) PO PRN (10:45)
[2018-11-23] MEDS ORDERED: ONDANSETRON *ODT* 4 MG TABLET SL PRN (14:02)
--- NOTE | 2018-11-23 14:08 | PN ---
S CIWA - CIWA Score Nausea/Vomitin Muscle Tremors: 3 Anxiety: 3 Agitation: 3 Paroxysmal Sweats: 3 Orientation: 0-Oriented Tacttile Disturbances: 0-None Auditory Disturbances: 0-None Visual Disturbances: 0-None Headache: 3-Moderate CIWA-Ar Total Score: 18 BHS Progress Note (SOAP) Subjective: Sweating, nausea, back pain, headache (has migraine, usually relief with motrin 800mg) Objective: 11/23/18 14:04 Last Vital Signs Temp Pulse Resp BP Pulse Ox 98.2 F 86 18 118/75 11/23/18 13:19 11/23/18 13:19 11/23/18 13:19 11/23/18 13:19 Laboratory Tests 11/22/18 11/22/18 11/22/18 05:45 05:45 05:45 WBC 9.6 RBC 4.61 Hgb 13.9 Hct 43.0 MCV 93.1 MCH 30.1 MCHC 32.3 RDW 14.1 Plt Count 204 MPV 11.4 H Sodium 141 Potassium 4.1 Chloride 108 H Carbon Dioxide 27 Anion Gap 7 L BUN 13 Creatinine 1.3 Creat Clearance w eGFR 58.43 Random Glucose 111 H Calcium 9.4 Total Bilirubin 0.4 AST 31 ALT 27 Alkaline Phosphatase 90 Total Protein 7.5 Albumin 4.3 RPR Titer Nonreactive Labs reviewed: GFR 58.43, serum creatinine 1.3 Assessment: 11/23/18 14:06 Withdrawal symptoms Noted with prerenal azotemia Plan: Continue detox Prerenal azotemia: encouraged PO water intake, repeat BMP
[2018-11-23] MEDS ORDERED: PANTOPRAZOLE 40 MG TABLET (FP) PO ONE (14:30)
[2018-11-23] MEDS: IBUPROFEN 600 MG TABLET (FP) PO PRN (15:56)
[2018-11-23] MEDS: THIAMINE HCL 100 MG TABLET (FP) PO SCH (22:38)
[2018-11-23] MEDS: QUETIAPINE FUMARATE 200 MG, QUETIAPINE FUMARATE 50 MG PO SCH (22:38)
[2018-11-23] MEDS: PANTOPRAZOLE 40 MG TABLET (FP) PO SCH (22:38)
[2018-11-24] MEDS: chlordiazePOXIDE 5 MG CAPSULE PO SCH (06:09)
[2018-11-24] MEDS: guaiFENesin/D-METHORPHAN HB 10 ML UNIT-DOSE CUPS PO PRN ×2 (06:10→16:51)
[2018-11-24] MEDS ORDERED: PANTOPRAZOLE 40 MG TABLET (FP) PO SCH (07:00)
[2018-11-24] MEDS: SERTRALINE HCL 50 MG TABLET (FP) PO SCH (10:09)
[2018-11-24] MEDS: PANTOPRAZOLE 40 MG TABLET (FP) PO SCH ×2 (10:09→22:40)
[2018-11-24] MEDS: chlordiazePOXIDE HCL 10 MG CAPSULE PO SCH ×3 (10:09→22:40)
[2018-11-24] MEDS: PRENATAL VITAMINS W/ FOLIC ACID TABLET (FP) PO SCH (10:09)
[2018-11-24] MEDS: IBUPROFEN 600 MG TABLET (FP) PO PRN (10:10)
[2018-11-24] MEDS: P-EPHED 60MG/TRIPROLIDI 2.5MG TABLET PO PRN ×2 (10:11→16:51)
--- NOTE | 2018-11-24 11:01 | PN ---
BHS Progress Note (SOAP) Subjective: feeling better no tremor less sweat no gi distress Objective: 11/24/18 11:00 Vital Signs Temperature 97.2 F L 11/24/18 09:22 Pulse Rate 60 11/24/18 09:22 Respiratory Rate 18 11/24/18 09:22 Blood Pressure 115/69 11/24/18 09:22 O2 Sat by Pulse Oximetry (%) Laboratory Last Values WBC 9.6 K/mm3 (4.0-10.0) 11/22/18 05:45 RBC 4.61 M/mm3 (4.00-5.60) 11/22/18 05:45 Hgb 13.9 GM/dL (11.7-16.9) 11/22/18 05:45 Hct 43.0 % (35.4-49) 11/22/18 05:45 MCV 93.1 fl (80-96) 11/22/18 05:45 MCH 30.1 pg (25.7-33.7) 11/22/18 05:45 MCHC 32.3 g/dl (32.0-35.9) 11/22/18 05:45 RDW 14.1 % (11.9-15.9) 11/22/18 05:45 Plt Count 204 K/MM3 (134-434) 11/22/18 05:45 MPV 11.4 fl (7.5-11.1) H 11/22/18 05:45 Sodium 141 mmol/L (136-145) 11/22/18 05:45 Potassium 4.1 mmol/L (3.5-5.1) 11/22/18 05:45 Chloride 108 mmol/L (98-107) H 11/22/18 05:45 Carbon Dioxide 27 mmol/L (21-32) 11/22/18 05:45 Anion Gap 7 MMOL/L (8-16) L 11/22/18 05:45 BUN 13 mg/dL (7-18) 11/22/18 05:45 Creatinine 1.3 mg/dL (0.55-1.3) 11/22/18 05:45 Creat Clearance w eGFR 58.43 (>60) 11/22/18 05:45 Random Glucose 111 mg/dL (74-106) H 11/22/18 05:45 Calcium 9.4 mg/dL (8.5-10.1) 11/22/18 05:45 Total Bilirubin 0.4 mg/dL (0.2-1) 11/22/18 05:45 AST 31 U/L (15-37) 11/22/18 05:45 ALT 27 U/L (13-61) 11/22/18 05:45 Alkaline Phosphatase 90 U/L (45-117) 11/22/18 05:45 Total Protein 7.5 g/dl (6.4-8.2) 11/22/18 05:45 Albumin 4.3 g/dl (3.4-5.0) 11/22/18 05:45 RPR Titer Nonreactive (NONREACTIVE) 11/22/18 05:45 lab noted Assessment: 11/24/18 11:00 mild withdrawal sx Plan: medically supervised detox patient is going to [facility]
[2018-11-24] MEDS ORDERED: QUEtiapine FUMARATE 200 MG TABLET ONE (20:21)
[2018-11-24] MEDS ORDERED: QUEtiapine FUMARATE 50 MG TABLET ONE (20:21)
[2018-11-24] MEDS: THIAMINE HCL 100 MG TABLET (FP) PO SCH (22:40)
[2018-11-24] MEDS: QUETIAPINE FUMARATE 200 MG, QUETIAPINE FUMARATE 50 MG PO SCH (22:40)
[2018-11-25] MEDS: chlordiazePOXIDE HCL 10 MG CAPSULE PO SCH (05:15)
[2018-11-25] MEDS: P-EPHED 60MG/TRIPROLIDI 2.5MG TABLET PO PRN (05:17)
[2018-11-25] MEDS: guaiFENesin/D-METHORPHAN HB 10 ML UNIT-DOSE CUPS PO PRN (05:18)
[2018-11-25 09:41] VITALS: BP 90/61; PULSE 87; TEMP 96.4
[2018-11-25] MEDS: SERTRALINE HCL 50 MG TABLET (FP) PO SCH (09:51)
[2018-11-25] MEDS: PRENATAL VITAMINS W/ FOLIC ACID TABLET (FP) PO SCH (09:51)
[2018-11-25] MEDS: PANTOPRAZOLE 40 MG TABLET (FP) PO SCH (09:52)
--- NOTE | 2018-11-25 13:25 | DS ---
[facility] Detox Discharge Summary Admission Date: 11/21/18 Discharge Date: 11/25/18 - History Present History: Alcohol Dependence, Cocaine Dependence Additional Comments: PATIENT SCHEDULED FOR DISCHARGE FROM DETOX UNIT TO DAY. PATIENT GOING TO [facility] ([place] FOR AFTERCARE. PATIENT WAS DISCHARGED FROM DETOX UNIT TO BE TAKEN TO REHAB UNIT IN STABLE MEDICAL CONDITION. Pertinent Past History: Depression, G.E.R.D., Bipolar Disorder, Schizoaffective Disorder, Obesity, Nicotine Dependence, History of Post-Traumatic Stress Disorder, Nicotine Dependence, History of Insomnia. - Physical Exam Results Vital Signs: Vital Signs Temperature 96.4 F L 11/25/18 09:40 Pulse Rate 87 11/25/18 09:40 Respiratory Rate 16 11/25/18 09:40 Blood Pressure 90/61 11/25/18 09:40 O2 Sat by Pulse Oximetry (%) Pertinent Admission Physical Exam Findings: WITHDRAWAL SYMPTOMS. Laboratory Tests 11/22/18 11/22/18 11/22/18 05:45 05:45 05:45 WBC 9.6 RBC 4.61 Hgb 13.9 Hct 43.0 MCV 93.1 MCH 30.1 MCHC 32.3 RDW 14.1 Plt Count 204 MPV 11.4 H Sodium 141 Potassium 4.1 Chloride 108 H Carbon Dioxide 27 Anion Gap 7 L BUN 13 Creatinine 1.3 Creat Clearance w eGFR 58.43 Random Glucose 111 H Calcium 9.4 Total Bilirubin 0.4 AST 31 ALT 27 Alkaline Phosphatase 90 Total Protein 7.5 Albumin 4.3 RPR Titer Nonreactive LABS NOTED. - Treatment Hospital Course: Detox Protocol Followed, Detoxed Safely, Responded well, Discharged Condition Good, Rehab Referral Accepted Patient has Accepted a Rehab Referral to: [facility] ([place] . - Medication Discharge Medications: Ambulatory Orders Quetiapine Fumarate [Seroquel -] 400 mg PO HS #30 tablet 08/11/18 Sertraline HCl [Zoloft -] 150 mg PO DAILY #90 tablet 08/11/18 Pantoprazole Sodium [Protonix -] 40 mg PO BID 11/23/18 - Diagnosis (1) Alcohol dependence with withdrawal, uncomplicated Status: Acute (2) Cocaine dependence Status: Chronic Qualifiers: Substance use status: uncomplicated Qualified Code(s): F14.20 - Cocaine dependence, uncomplicated (3) GERD (gastroesophageal reflux disease) Status: Chronic Qualifiers: Esophagitis presence: without esophagitis Qualified Code(s): K21.9 - Gastro -esophageal reflux disease without esophagitis (4) Morbid obesity Status: Chronic (5) PTSD (post-traumatic stress disorder) Status: Chronic (6) Schizoaffective disorder Status: Chronic Qualifiers: Schizoaffective disorder type: bipolar Qualified Code(s): F25.0 - Schizoaffective disorder, bipolar type (7) Bipolar disorder Status: Chronic (8) Insomnia Status: Chronic Qualifiers: Insomnia type: unspecified Qualified Code(s): G47.00 - Insomnia, unspecified (9) Nicotine dependence Status: Chronic Qualifiers: Nicotine product type: cigarettes Substance use status: in withdrawal Qualified Code(s): F17.213 - Nicotine dependence, cigarettes, with withdrawal - AMA Did Patient Leave Against Medical Advice: No
== END 2018-11-25 11:32 | disposition other institution (70) | DRG 774 ==
LOC: YASAS 08:22 → Y3N 10:07
PROC: HZ2ZZZZ Detoxification Services for Substance Abuse Treatment (ICD-10-PCS; principal; 2018-11-21)
DX: F10.230 Alcohol dependence with withdrawal, uncomplicated (principal); F14.20 Cocaine dependence, uncomplicated; F17.213 Nicotine dependence, cigarettes, with withdrawal; F43.10 Post-traumatic stress disorder, unspecified; F25.0 Schizoaffective disorder, bipolar type; F31.9 Bipolar disorder, unspecified; K21.9 Gastro-esophageal reflux disease without esophagitis; G47.00 Insomnia, unspecified; R79.89 Other specified abnormal findings of blood chemistry; G43.909 Migraine, unspecified, not intractable, without status migrainosus; E66.01 Morbid (severe) obesity due to excess calories; Z68.42 Body mass index [BMI] 45.0-49.9, adult; Z91.013 Allergy to seafood; Z91.5 Personal history of self-harm
CPT/HCPCS: 36415; 80053; 85027; 86593; Q0162

== ENCOUNTER 2018-11-25 11:33 | Inpatient (IN) | payer OTHER ==
[2018-11-25] MEDS ORDERED: IBUPROFEN 400 MG TABLET (FP) PO PRN (13:16)
[2018-11-25] MEDS ORDERED: ACETAMINOPHEN 325 MG TABLET (FP) PO PRN (13:16)
[2018-11-25] MEDS ORDERED: MAGNESIUM HYDROX 2400MG/30ML ORAL SUSPENSION 30 ML CUP PO PRN (13:16)
[2018-11-25] MEDS ORDERED: MENTHOL/PHENOL 1 EACH UD MM PRN (13:16)
[2018-11-25] MEDS ORDERED: MAG HYDROX/AL HYDROX/SIMETH 30 ML UNIT-DOSE CUP PO PRN (13:16)
[2018-11-25] MEDS ORDERED: MAGNESIUM CITRATE 300 ML BOTTLE PO PRN (13:16)
[2018-11-25] MEDS ORDERED: LOPERAMIDE HCL 2 MG CAPSULE PO PRN (13:16)
--- NOTE | 2018-11-25 13:18 | HP ---
VLADIM[facility]ILLINGS Rehab Assess/Revision - Admission History Admitted to Rehab from: [facility] Date of Admission to Rehab: 11/25/2018 - Vital signs Vital Signs: NOTED; STABLE. - Findings Detox History & Physical reviewed: Yes Concur with findings: Yes Comments/Additional Findings: PATIENT'S MEDICAL / MEDICATION HISTORY REVIEWED PRIOR TO DISCHARGE FROM DETOX UNIT. PATIENT WAS DISCHARGED FROM DETOX UNIT TO BE TAKEN TO REHAB UNIT IN STABLE MEDICAL CONDITION. Inpatient Rehab Admission - Initial Determination Are CD services needed?: Yes Free of communicable disease: Yes Not in need of hospitalization: Yes - Rehab Admission Criteria Previous failed treatment: Yes Comorbidities: Yes Patient is meeting Inpatient Rehab admission criteria:: Yes
[2018-11-25] MEDS: guaiFENesin/D-METHORPHAN HB 10 ML UNIT-DOSE CUPS PO PRN (15:08)
[2018-11-25] MEDS: P-EPHED 60MG/TRIPROLIDI 2.5MG TABLET PO PRN (15:08)
[2018-11-25] MEDS ORDERED: RANITIDINE HCL 150 MG TABLET (FP) PO ONE (18:00)
[2018-11-25] MEDS ORDERED: MELATONIN 5 MG TABLETS PO PRN (22:00)
[2018-11-25] MEDS: THIAMINE HCL 100 MG TABLET (FP) PO SCH (22:19)
[2018-11-26] MEDS: guaiFENesin/D-METHORPHAN HB 10 ML UNIT-DOSE CUPS PO PRN ×2 (06:42→12:49)
[2018-11-26] MEDS: P-EPHED 60MG/TRIPROLIDI 2.5MG TABLET PO PRN ×2 (06:43→18:41)
[2018-11-26] MEDS: PANTOPRAZOLE 40 MG TABLET (FP) PO SCH (10:15)
[2018-11-26] MEDS: PRENATAL VITAMINS W/ FOLIC ACID TABLET (FP) PO SCH (10:15)
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
--- NOTE | 2018-11-26 14:29 | PN ---
S Progress Note (SOAP) Subjective: c/o spontaneous (L) sided pain - started yesterday and has increased thisd am. Pain is sharp and a "8". Increases with sitting and coughing. Improves when turning to (R) side. C/o cough x 4 days with white phlegm production. Denies SOB. Objective: A&O x3. Lungs CTA. FROM spine. No CVA tenderness. (L) flank pain - no increase w/ paplation. No increase erythema or warmth at site. Vital Signs - 24 hr 11/26/18 11/26/18 11/26/18 00:30 03:30 06:47 Temperature 97.5 F L Pulse Rate 60 Respiratory 18 18 18 Rate Blood Pressure 137/71 Assessment: (L) Flank pain. Cough. Plan: Plan: Robitussin Jm-hazel Ibuprofen. F/u as needed.
[2018-11-26] MEDS: SERTRALINE HCL 50 MG TABLET (FP) PO SCH (14:39)
[2018-11-26] MEDS: IBUPROFEN 600 MG TABLET (FP) PO PRN (18:38)
[2018-11-26] MEDS: guaiFENesin 200 MG/10 ML 10 ML UNIT-DOSE CUPS PO PRN (18:38)
[2018-11-26] MEDS: METHYL SALICYLATE/MENTHOL OINT 30 GM TUBE TP SCH (21:39)
[2018-11-26] MEDS: THIAMINE HCL 100 MG TABLET (FP) PO SCH (21:40)
[2018-11-26] MEDS: QUEtiapine FUMARATE 400 MG TABLET PO SCH (21:40)
[2018-11-27] MEDS: PRENATAL VITAMINS W/ FOLIC ACID TABLET (FP) PO SCH (09:55)
[2018-11-27] MEDS: SERTRALINE HCL 50 MG TABLET (FP) PO SCH (09:55)
[2018-11-27] MEDS: METHYL SALICYLATE/MENTHOL OINT 30 GM TUBE TP SCH ×2 (09:55→21:58)
[2018-11-27] MEDS: PANTOPRAZOLE 40 MG TABLET (FP) PO SCH (09:55)
[2018-11-27] MEDS: guaiFENesin 200 MG/10 ML 10 ML UNIT-DOSE CUPS PO PRN (09:56)
[2018-11-27] MEDS ORDERED: PT OWN MED DRAWER 7, Y5N ONE (09:57)
[2018-11-27] MEDS: P-EPHED 60MG/TRIPROLIDI 2.5MG TABLET PO PRN (09:59)
[2018-11-27] MEDS: THIAMINE HCL 100 MG TABLET (FP) PO SCH (21:58)
[2018-11-27] MEDS: QUEtiapine FUMARATE 400 MG TABLET PO SCH (21:58)
[2018-11-28] MEDS: PRENATAL VITAMINS W/ FOLIC ACID TABLET (FP) PO SCH (09:31)
[2018-11-28] MEDS: PANTOPRAZOLE 40 MG TABLET (FP) PO SCH (09:31)
[2018-11-28] MEDS: SERTRALINE HCL 50 MG TABLET (FP) PO SCH (09:31)
[2018-11-28] MEDS: P-EPHED 60MG/TRIPROLIDI 2.5MG TABLET PO PRN ×2 (09:34→17:57)
[2018-11-28] MEDS ORDERED: PT OWN MED DRAWER 7, Y5N ONE (09:36)
[2018-11-28] MEDS: guaiFENesin 200 MG/10 ML 10 ML UNIT-DOSE CUPS PO PRN ×2 (09:36→17:57)
[2018-11-28] MEDS: METHYL SALICYLATE/MENTHOL OINT 30 GM TUBE TP SCH ×2 (09:36→21:03)
[2018-11-28] MEDS: QUEtiapine FUMARATE 400 MG TABLET PO SCH (21:03)
[2018-11-28] MEDS: THIAMINE HCL 100 MG TABLET (FP) PO SCH (21:03)
[2018-11-29] MEDS: PANTOPRAZOLE 40 MG TABLET (FP) PO SCH (09:52)
[2018-11-29] MEDS: IBUPROFEN 600 MG TABLET (FP) PO PRN ×2 (09:52→21:25)
[2018-11-29] MEDS: SERTRALINE HCL 50 MG TABLET (FP) PO SCH (09:52)
[2018-11-29] MEDS: PRENATAL VITAMINS W/ FOLIC ACID TABLET (FP) PO SCH (09:52)
[2018-11-29] MEDS: guaiFENesin 200 MG/10 ML 10 ML UNIT-DOSE CUPS PO PRN (09:55)
[2018-11-29] MEDS: METHYL SALICYLATE/MENTHOL OINT 30 GM TUBE TP SCH ×2 (10:21→21:51)
[2018-11-29] MEDS ORDERED: PT OWN MED DRAWER 7, Y5N ONE ×2 (20:00→21:23)
[2018-11-29] MEDS: THIAMINE HCL 100 MG TABLET (FP) PO SCH (21:23)
[2018-11-29] MEDS: QUEtiapine FUMARATE 400 MG TABLET PO SCH (21:24)
[2018-11-30] MEDS: guaiFENesin 200 MG/10 ML 10 ML UNIT-DOSE CUPS PO PRN (09:38)
[2018-11-30] MEDS: METHYL SALICYLATE/MENTHOL OINT 30 GM TUBE TP SCH ×2 (09:38→21:52)
[2018-11-30] MEDS: IBUPROFEN 600 MG TABLET (FP) PO PRN ×2 (09:38→17:59)
[2018-11-30] MEDS: P-EPHED 60MG/TRIPROLIDI 2.5MG TABLET PO PRN (09:38)
[2018-11-30] MEDS: PRENATAL VITAMINS W/ FOLIC ACID TABLET (FP) PO SCH (09:39)
[2018-11-30] MEDS: PANTOPRAZOLE 40 MG TABLET (FP) PO SCH (09:39)
[2018-11-30] MEDS: SERTRALINE HCL 50 MG TABLET (FP) PO SCH (09:39)
[2018-11-30] MEDS: QUEtiapine FUMARATE 400 MG TABLET PO SCH (21:52)
[2018-11-30] MEDS: THIAMINE HCL 100 MG TABLET (FP) PO SCH (21:52)
[2018-12-01] MEDS: PANTOPRAZOLE 40 MG TABLET (FP) PO SCH (09:35)
[2018-12-01] MEDS: PRENATAL VITAMINS W/ FOLIC ACID TABLET (FP) PO SCH (09:35)
[2018-12-01] MEDS: SERTRALINE HCL 50 MG TABLET (FP) PO SCH (09:35)
[2018-12-01] MEDS: METHYL SALICYLATE/MENTHOL OINT 30 GM TUBE TP SCH ×2 (09:37→22:35)
[2018-12-01] MEDS: guaiFENesin 200 MG/10 ML 10 ML UNIT-DOSE CUPS PO PRN (09:37)
[2018-12-01] MEDS: P-EPHED 60MG/TRIPROLIDI 2.5MG TABLET PO PRN (09:37)
[2018-12-01] MEDS: THIAMINE HCL 100 MG TABLET (FP) PO SCH (22:35)
[2018-12-01] MEDS: QUEtiapine FUMARATE 400 MG TABLET PO SCH (22:35)
[2018-12-02] MEDS: SERTRALINE HCL 50 MG TABLET (FP) PO SCH (09:47)
[2018-12-02] MEDS: PRENATAL VITAMINS W/ FOLIC ACID TABLET (FP) PO SCH (09:48)
[2018-12-02] MEDS: METHYL SALICYLATE/MENTHOL OINT 30 GM TUBE TP SCH ×2 (09:48→21:58)
[2018-12-02] MEDS: PANTOPRAZOLE 40 MG TABLET (FP) PO SCH (09:48)
[2018-12-02] MEDS: IBUPROFEN 600 MG TABLET (FP) PO PRN (09:50)
[2018-12-02] MEDS: guaiFENesin 200 MG/10 ML 10 ML UNIT-DOSE CUPS PO PRN (09:50)
[2018-12-02] MEDS: P-EPHED 60MG/TRIPROLIDI 2.5MG TABLET PO PRN (09:51)
[2018-12-02] MEDS: QUEtiapine FUMARATE 400 MG TABLET PO SCH (21:58)
[2018-12-02] MEDS: THIAMINE HCL 100 MG TABLET (FP) PO SCH (21:58)
[2018-12-03] MEDS: SERTRALINE HCL 50 MG TABLET (FP) PO SCH (10:05)
[2018-12-03] MEDS: PRENATAL VITAMINS W/ FOLIC ACID TABLET (FP) PO SCH (10:05)
[2018-12-03] MEDS: PANTOPRAZOLE 40 MG TABLET (FP) PO SCH (10:05)
[2018-12-03] MEDS ORDERED: PT OWN MED DRAWER 7, Y5N ONE (10:06)
[2018-12-03] MEDS: guaiFENesin 200 MG/10 ML 10 ML UNIT-DOSE CUPS PO PRN (10:06)
[2018-12-03] MEDS: METHYL SALICYLATE/MENTHOL OINT 30 GM TUBE TP SCH ×2 (10:07→21:42)
[2018-12-03] MEDS: QUEtiapine FUMARATE 400 MG TABLET PO SCH (21:43)
[2018-12-03] MEDS: THIAMINE HCL 100 MG TABLET (FP) PO SCH (21:43)
[2018-12-04] MEDS: PRENATAL VITAMINS W/ FOLIC ACID TABLET (FP) PO SCH (09:45)
[2018-12-04] MEDS: PANTOPRAZOLE 40 MG TABLET (FP) PO SCH (09:45)
[2018-12-04] MEDS: METHYL SALICYLATE/MENTHOL OINT 30 GM TUBE TP SCH ×2 (09:45→21:58)
[2018-12-04] MEDS: SERTRALINE HCL 50 MG TABLET (FP) PO SCH (09:45)
[2018-12-04] MEDS: IBUPROFEN 600 MG TABLET (FP) PO PRN (09:46)
[2018-12-04] MEDS: P-EPHED 60MG/TRIPROLIDI 2.5MG TABLET PO PRN (09:48)
[2018-12-04] MEDS ORDERED: CYCLOBENZAPRINE HCL 10 MG TABLET (FP) PO PRN (11:38)
[2018-12-04] MEDS ORDERED: PT OWN MED DRAWER 7, Y5N ONE (11:56)
[2018-12-04] MEDS: THIAMINE HCL 100 MG TABLET (FP) PO SCH (21:58)
[2018-12-04] MEDS: QUEtiapine FUMARATE 400 MG TABLET PO SCH (21:58)
[2018-12-05] MEDS: PRENATAL VITAMINS W/ FOLIC ACID TABLET (FP) PO SCH (10:18)
[2018-12-05] MEDS: PANTOPRAZOLE 40 MG TABLET (FP) PO SCH (10:19)
[2018-12-05] MEDS: SERTRALINE HCL 50 MG TABLET (FP) PO SCH (10:19)
[2018-12-05] MEDS: METHYL SALICYLATE/MENTHOL OINT 30 GM TUBE TP SCH ×2 (10:20→23:25)
[2018-12-05] MEDS ORDERED: PT OWN MED DRAWER 7, Y5N ONE (10:22)
[2018-12-05] MEDS: P-EPHED 60MG/TRIPROLIDI 2.5MG TABLET PO PRN (10:24)
[2018-12-05] MEDS ORDERED: SULFAMETHOXAZOLE/TRIMETHOPRIM 800MG/160MG D.S. TABLET PO ONE (12:44)
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
[2018-12-05] MEDS ORDERED: SULFAMETHOXAZOLE/TRIMETHOPRIM 800MG/160MG D.S. TABLET PO SCH (22:00)
[2018-12-05] MEDS: QUEtiapine FUMARATE 400 MG TABLET PO SCH (23:25)
[2018-12-05] MEDS: THIAMINE HCL 100 MG TABLET (FP) PO SCH (23:26)
--- NOTE | 2018-12-06 00:19 | PN ---
[facility] Progress Note Note: asked to see client for c/o blisters by rn. CLIENT C/O RASH AND ITCHINESS TO TRUNK OF BODY AND THIGHS.. STATES STARTED A FEW HOURS AFTER TAKING A NEW ANTIBIOTIC THAT WAS PRESCRIBED TO HIM TODAY. DENIES SOB, ITCHY THROAT, C.P.,WHEEZING, RUNNY NOSE, FEVER, SWELLING, DIARRHEA CLIENT SEEN OOB A/O X3 NAD HEENT- NCAT NEG RASH, REDNESS OR SWELLING TO FACE MOUTH MMM, PATENT AIRWAY. TONSILS 2+, NO LAD CV RRR LUNGS -CTAB O2 SAT 94% SKIN- PATCHES OF ERYTHEMATOUS, URTICARIAL WHEALS NOTED TO FRONT AND BACK OF TRUNK AND UPPER THIGHS. SOME PATCHES NOTED WITH WHAT LOOKS LIKE AN ECCHYMOTIC CENTER. Last Vital Signs Temp Pulse Resp BP Pulse Ox 98 F 65 18 126/77 12/05/18 06:47 12/05/18 06:47 12/05/18 06:47 12/05/18 06:47 A- ALLERGIC RXN TO BACTRIM P- BACTRIM DC BACTRIM ADDED TO ALLERGY PROFILE BENADRYL 50 MG IM NOW BENADRYL 50 MG PO Q 6 H STARTING 6AM HOLD FOR SEDATION MONITOR VS WITH 02 SAT Q6H HYDROCORTISONE 1% ORDERED WILL WAIT FOR UA BEFORE STARTING ANY ABT TX AT THIS TIME GIVEN ACTIVE RXN. D/W CLIENT TO REPORT ANY SX OF SOB, DIFFICULTY BREATHING, C.P. OR WORSENING RASH , ITCHY THROAT/EAR . CLIENT VERBALIZED UNDERSTANDING CONT TO MONITOR CLOSELY
[2018-12-06] MEDS: diphenhydrAMINE HCL 50 MG CAPSULE PO SCH ×4 (06:07→23:44)
[2018-12-06] MEDS ORDERED: predniSONE 20 MG TABLET (UD) PO ONE (07:34)
--- NOTE | 2018-12-06 07:40 | PN ---
S Progress Note Note: reevaluated this morning. Denies any c/o. Rash looks much better. less areas of wheals noted. Cont to monitor closely. c/w benadryl as rx and vs w/ 02 sat q6 x4. will give 1 dose of prednisone 60 mg now Vital Signs Temperature 98.0 F 12/06/18 04:00 Pulse Rate 79 12/06/18 04:00 Respiratory Rate 18 12/06/18 04:00 Blood Pressure 142/67 12/06/18 04:00 O2 Sat by Pulse Oximetry (%)
[2018-12-06] MEDS ORDERED: PT OWN MED DRAWER 7, Y5N ONE ×2 (08:38→09:46)
[2018-12-06] MEDS: PANTOPRAZOLE 40 MG TABLET (FP) PO SCH (09:44)
[2018-12-06] MEDS: PRENATAL VITAMINS W/ FOLIC ACID TABLET (FP) PO SCH (09:44)
[2018-12-06] MEDS: METHYL SALICYLATE/MENTHOL OINT 30 GM TUBE TP SCH ×2 (09:44→22:23)
[2018-12-06] MEDS: SERTRALINE HCL 50 MG TABLET (FP) PO SCH (09:44)
[2018-12-06] MEDS: P-EPHED 60MG/TRIPROLIDI 2.5MG TABLET PO PRN (09:45)
[2018-12-06] MEDS: HYDROCORTISONE 1% TOPICAL CREAM 30 GM TUBE TP PRN ×2 (09:46→17:58)
[2018-12-06 10:58] LABS: URINE APPEARANCE CLEAR; URINE BILIRUBIN NEGATIVE (<2.0 mg/dL); URINE COLOR YELLOW; URINE GLUCOSE (UA) NEGATIVE (NEGATIVE); URINE KETONE NEGATIVE (NEGATIVE); URINE LEUK ESTERASE NEGATIVE (NEGATIVE); URINE NITRITE NEGATIVE (NEGATIVE); URINE PROTEIN NEGATIVE (NEGATIVE); URINE UROBILINOGEN NEGATIVE mg/dL (0.2-1.0)
[2018-12-06] MEDS: QUEtiapine FUMARATE 400 MG TABLET PO SCH (22:23)
[2018-12-06] MEDS: THIAMINE HCL 100 MG TABLET (FP) PO SCH (22:23)
[2018-12-07] MEDS: hydrOXYzine PAMOATE 50 MG CAPSULE (FP) PO PRN ×2 (06:31→13:46)
[2018-12-07] MEDS: METHYL SALICYLATE/MENTHOL OINT 30 GM TUBE TP SCH ×2 (09:39→21:01)
[2018-12-07] MEDS: PANTOPRAZOLE 40 MG TABLET (FP) PO SCH (09:39)
[2018-12-07] MEDS: PRENATAL VITAMINS W/ FOLIC ACID TABLET (FP) PO SCH (09:39)
[2018-12-07] MEDS: SERTRALINE HCL 50 MG TABLET (FP) PO SCH (09:39)
[2018-12-07] MEDS: HYDROCORTISONE 1% TOPICAL CREAM 30 GM TUBE TP PRN ×2 (09:40→21:01)
[2018-12-07] MEDS: P-EPHED 60MG/TRIPROLIDI 2.5MG TABLET PO PRN ×2 (09:41→17:55)
[2018-12-07] MEDS: THIAMINE HCL 100 MG TABLET (FP) PO SCH (21:01)
[2018-12-07] MEDS: QUEtiapine FUMARATE 400 MG TABLET PO SCH (21:01)
[2018-12-08] MEDS: HYDROCORTISONE 1% TOPICAL CREAM 30 GM TUBE TP PRN ×3 (07:05→18:05)
[2018-12-08] MEDS: PRENATAL VITAMINS W/ FOLIC ACID TABLET (FP) PO SCH (09:57)
[2018-12-08] MEDS: SERTRALINE HCL 50 MG TABLET (FP) PO SCH (09:57)
[2018-12-08] MEDS: PANTOPRAZOLE 40 MG TABLET (FP) PO SCH (09:57)
[2018-12-08] MEDS: METHYL SALICYLATE/MENTHOL OINT 30 GM TUBE TP SCH ×2 (10:01→22:16)
[2018-12-08] MEDS ORDERED: PT OWN MED DRAWER 7, Y5N ONE ×2 (10:02→18:04)
--- NOTE | 2018-12-08 10:29 | PN ---
[facility] Progress Note Note: PATIENT C/O ITCHING AFTER HAVING ALLERGIC REACTION TO BACTRIM ON 12/06/17. PATIENT STATES VISTARIL DOES NOT HELP WITH ITCHING AND THAT BENADRYL HELPED TO ALLEVIATE SX. PATIENT DENIES COUGH, SOB AND RASH. ALSO HAS H/O GERD AND TREATED WITH NEXIUM IN PAST. Laboratory Tests 12/06/18 12/06/18 07:45 07:45 Urine Color Yellow Urine Appearance Clear Urine pH 6.0 Ur Specific [place] 1.017 Urine Protein Negative Urine Glucose (UA) Negative Urine Ketones Negative Urine Blood Negative Urine Nitrite Negative Urine Bilirubin Negative Urine Urobilinogen Negative Ur Leukocyte Esterase Negative HIV 1&2 Antibody Screen Negative HIV P24 Antigen Negative Vital Signs Temperature 97.9 F 12/08/18 06:45 Pulse Rate 101 H 12/08/18 06:45 Respiratory Rate 20 12/08/18 06:45 Blood Pressure 122/82 12/08/18 06:45 O2 Sat by Pulse Oximetry (%) PE: ALERT AND ORIENTED X 3 SKIN WARM AND DRY, + RESOLVING PURPLE WHEALS ON BACK, NO BLISTERS NOTED GI: +OBESE, NT,ND EXT FULL ROM AMB AD MARIANNA A/P H/O GERD S/P ALLERGIC REACTION WILL D/C VISTARIL START BENADRYL 25MG Q6H PRN STAT DOSE OF IM BENADRYL ORDERED CONTINUE TO MONITOR CLINICALLY ADD PROTONIX TO MEDICATION REGIMEN.
[2018-12-08] MEDS: diphenhydrAMINE HCL 25 MG CAPSULE (FP) PO PRN (18:05)
[2018-12-08] MEDS: P-EPHED 60MG/TRIPROLIDI 2.5MG TABLET PO PRN (18:06)
[2018-12-08] MEDS: QUEtiapine FUMARATE 400 MG TABLET PO SCH (22:16)
[2018-12-08] MEDS: THIAMINE HCL 100 MG TABLET (FP) PO SCH (22:16)
[2018-12-09] MEDS: HYDROCORTISONE 1% TOPICAL CREAM 30 GM TUBE TP PRN ×2 (07:19→09:55)
[2018-12-09] MEDS: PRENATAL VITAMINS W/ FOLIC ACID TABLET (FP) PO SCH (09:55)
[2018-12-09] MEDS: PANTOPRAZOLE 40 MG TABLET (FP) PO SCH (09:55)
[2018-12-09] MEDS: SERTRALINE HCL 50 MG TABLET (FP) PO SCH (09:55)
[2018-12-09] MEDS: P-EPHED 60MG/TRIPROLIDI 2.5MG TABLET PO PRN (09:55)
[2018-12-09] MEDS: METHYL SALICYLATE/MENTHOL OINT 30 GM TUBE TP SCH ×2 (09:57→21:50)
[2018-12-09] MEDS ORDERED: PT OWN MED DRAWER 7, Y5N ONE (10:24)
[2018-12-09] MEDS: diphenhydrAMINE HCL 25 MG CAPSULE (FP) PO PRN (14:38)
[2018-12-09] MEDS: QUEtiapine FUMARATE 400 MG TABLET PO SCH (21:51)
[2018-12-09] MEDS: THIAMINE HCL 100 MG TABLET (FP) PO SCH (21:51)
[2018-12-10] MEDS: IBUPROFEN 600 MG TABLET (FP) PO PRN (10:04)
[2018-12-10] MEDS: PANTOPRAZOLE 40 MG TABLET (FP) PO SCH (10:05)
[2018-12-10] MEDS: SERTRALINE HCL 50 MG TABLET (FP) PO SCH (10:05)
[2018-12-10] MEDS: PRENATAL VITAMINS W/ FOLIC ACID TABLET (FP) PO SCH (10:05)
[2018-12-10] MEDS: METHYL SALICYLATE/MENTHOL OINT 30 GM TUBE TP SCH ×2 (10:06→23:12)
[2018-12-10] MEDS: HYDROCORTISONE 1% TOPICAL CREAM 30 GM TUBE TP PRN (21:30)
[2018-12-10] MEDS: THIAMINE HCL 100 MG TABLET (FP) PO SCH (21:30)
[2018-12-10] MEDS ORDERED: PT OWN MED DRAWER 7, Y5N ONE (21:30)
[2018-12-10] MEDS: diphenhydrAMINE HCL 25 MG CAPSULE (FP) PO PRN (21:30)
[2018-12-10] MEDS: QUEtiapine FUMARATE 400 MG TABLET PO SCH (21:30)
[2018-12-11] MEDS: IBUPROFEN 600 MG TABLET (FP) PO PRN ×2 (10:04→16:25)
[2018-12-11] MEDS ORDERED: PT OWN MED DRAWER 7, Y5N ONE (10:04)
[2018-12-11] MEDS: PANTOPRAZOLE 40 MG TABLET (FP) PO SCH (10:04)
[2018-12-11] MEDS: PRENATAL VITAMINS W/ FOLIC ACID TABLET (FP) PO SCH (10:04)
[2018-12-11] MEDS: HYDROCORTISONE 1% TOPICAL CREAM 30 GM TUBE TP PRN (10:05)
[2018-12-11] MEDS: P-EPHED 60MG/TRIPROLIDI 2.5MG TABLET PO PRN (10:05)
[2018-12-11] MEDS: SERTRALINE HCL 50 MG TABLET (FP) PO SCH (10:05)
[2018-12-11] MEDS: METHYL SALICYLATE/MENTHOL OINT 30 GM TUBE TP SCH ×2 (10:07→22:03)
[2018-12-11] MEDS: QUEtiapine FUMARATE 400 MG TABLET PO SCH (22:03)
[2018-12-11] MEDS: THIAMINE HCL 100 MG TABLET (FP) PO SCH (22:04)
[2018-12-12] MEDS: PRENATAL VITAMINS W/ FOLIC ACID TABLET (FP) PO SCH (10:15)
[2018-12-12] MEDS: SERTRALINE HCL 50 MG TABLET (FP) PO SCH (10:15)
[2018-12-12] MEDS: PANTOPRAZOLE 40 MG TABLET (FP) PO SCH (10:15)
[2018-12-12] MEDS: METHYL SALICYLATE/MENTHOL OINT 30 GM TUBE TP SCH ×2 (10:15→22:29)
[2018-12-12] MEDS ORDERED: PT OWN MED DRAWER 7, Y5N ONE (10:19)
[2018-12-12] MEDS: HYDROCORTISONE 1% TOPICAL CREAM 30 GM TUBE TP PRN ×2 (10:20→16:16)
[2018-12-12] MEDS: QUEtiapine FUMARATE 400 MG TABLET PO SCH (22:29)
[2018-12-12] MEDS: THIAMINE HCL 100 MG TABLET (FP) PO SCH (22:30)
[2018-12-13] MEDS: HYDROCORTISONE 1% TOPICAL CREAM 30 GM TUBE TP PRN ×2 (07:30→10:08)
[2018-12-13] MEDS: PANTOPRAZOLE 40 MG TABLET (FP) PO SCH (10:06)
[2018-12-13] MEDS: PRENATAL VITAMINS W/ FOLIC ACID TABLET (FP) PO SCH (10:07)
[2018-12-13] MEDS: SERTRALINE HCL 50 MG TABLET (FP) PO SCH (10:07)
[2018-12-13] MEDS ORDERED: PT OWN MED DRAWER 7, Y5N ONE (10:08)
[2018-12-13] MEDS: P-EPHED 60MG/TRIPROLIDI 2.5MG TABLET PO PRN (10:09)
[2018-12-13] MEDS: METHYL SALICYLATE/MENTHOL OINT 30 GM TUBE TP SCH ×2 (10:10→21:32)
[2018-12-13] MEDS: QUEtiapine FUMARATE 400 MG TABLET PO SCH (21:32)
[2018-12-13] MEDS: THIAMINE HCL 100 MG TABLET (FP) PO SCH (21:33)
[2018-12-14] MEDS: PANTOPRAZOLE 40 MG TABLET (FP) PO SCH (10:21)
[2018-12-14] MEDS: PRENATAL VITAMINS W/ FOLIC ACID TABLET (FP) PO SCH (10:21)
[2018-12-14] MEDS: SERTRALINE HCL 50 MG TABLET (FP) PO SCH (10:21)
[2018-12-14] MEDS: IBUPROFEN 600 MG TABLET (FP) PO PRN (10:22)
[2018-12-14] MEDS: METHYL SALICYLATE/MENTHOL OINT 30 GM TUBE TP SCH ×2 (10:29→22:26)
[2018-12-14] MEDS: THIAMINE HCL 100 MG TABLET (FP) PO SCH (22:26)
[2018-12-14] MEDS: QUEtiapine FUMARATE 400 MG TABLET PO SCH (22:26)
[2018-12-15] MEDS: P-EPHED 60MG/TRIPROLIDI 2.5MG TABLET PO PRN (09:59)
[2018-12-15] MEDS: PRENATAL VITAMINS W/ FOLIC ACID TABLET (FP) PO SCH (09:59)
[2018-12-15] MEDS: PANTOPRAZOLE 40 MG TABLET (FP) PO SCH (09:59)
[2018-12-15] MEDS: SERTRALINE HCL 50 MG TABLET (FP) PO SCH (09:59)
[2018-12-15] MEDS: METHYL SALICYLATE/MENTHOL OINT 30 GM TUBE TP SCH ×2 (10:00→22:16)
[2018-12-15] MEDS ORDERED: PT OWN MED DRAWER 7, Y5N ONE (10:01)
[2018-12-15] MEDS: QUEtiapine FUMARATE 400 MG TABLET PO SCH (22:17)
[2018-12-15] MEDS: THIAMINE HCL 100 MG TABLET (FP) PO SCH (22:17)
[2018-12-16] MEDS: HYDROCORTISONE 1% TOPICAL CREAM 30 GM TUBE TP PRN ×2 (05:46→09:58)
[2018-12-16] MEDS: PANTOPRAZOLE 40 MG TABLET (FP) PO SCH (09:56)
[2018-12-16] MEDS: SERTRALINE HCL 50 MG TABLET (FP) PO SCH (09:57)
[2018-12-16] MEDS: PRENATAL VITAMINS W/ FOLIC ACID TABLET (FP) PO SCH (09:57)
[2018-12-16] MEDS: P-EPHED 60MG/TRIPROLIDI 2.5MG TABLET PO PRN (09:57)
[2018-12-16] MEDS: METHYL SALICYLATE/MENTHOL OINT 30 GM TUBE TP SCH ×2 (10:00→22:24)
[2018-12-16] MEDS ORDERED: PT OWN MED DRAWER 7, Y5N ONE (16:15)
[2018-12-16] MEDS: THIAMINE HCL 100 MG TABLET (FP) PO SCH (22:24)
[2018-12-16] MEDS: QUEtiapine FUMARATE 400 MG TABLET PO SCH (22:24)
[2018-12-17] MEDS: HYDROCORTISONE 1% TOPICAL CREAM 30 GM TUBE TP PRN (05:38)
[2018-12-17] MEDS: PANTOPRAZOLE 40 MG TABLET (FP) PO SCH (09:57)
[2018-12-17] MEDS: SERTRALINE HCL 50 MG TABLET (FP) PO SCH (09:57)
[2018-12-17] MEDS: PRENATAL VITAMINS W/ FOLIC ACID TABLET (FP) PO SCH (09:57)
[2018-12-17] MEDS: METHYL SALICYLATE/MENTHOL OINT 30 GM TUBE TP SCH ×2 (09:58→22:44)
[2018-12-17] MEDS: P-EPHED 60MG/TRIPROLIDI 2.5MG TABLET PO PRN (09:59)
--- NOTE | 2018-12-17 11:22 | PN ---
[facility] Progress Note Note: 0PT REPORTS HE IS FOR D/C IN A.M. REPORTS HE IS REFERRED TO [facility] ON [address] [place] [address] AND WILL FOLLOW UP WITH PMD AT THE [facility]. REPORTS HAS APPOINTMENT FOR 12/29/18 WITH HIS DOCTOR. COURTESY RX FOR HYDROCORTISONE CREAM #1 AND PROTONIX 40 MG PO DAILY#30 ELECTRONICALLY SENT TO PT'S PREFERRED PHARMACY. Vital Signs 12/17/18 12/17/18 03:30 06:59 Temperature 98.5 F Pulse Rate 83 Respiratory 18 18 Rate Blood Pressure 137/76 Laboratory Tests 12/06/18 12/06/18 07:45 07:45 Urine Color Yellow Urine Appearance Clear Urine pH 6.0 Ur Specific [place] 1.017 Urine Protein Negative Urine Glucose (UA) Negative Urine Ketones Negative Urine Blood Negative Urine Nitrite Negative Urine Bilirubin Negative Urine Urobilinogen Negative Ur Leukocyte Esterase Negative HIV 1&2 Antibody Screen Negative HIV P24 Antigen Negative PLAN;FOLLOW UP AT [facility] PLANNED F/U WITH MEDICAL APPOINTMENT ON 12/29/18 SCHEDULED.
--- NOTE | 2018-12-17 11:25 | PN ---
Psychiatric Progress Note Vital Signs: Vital Signs Period Temp Pulse Resp BP Sys/Arzate Pulse Ox Last 24 Hr 98.5 F 83 18-18 137/76 Date of Session: 12/17/18 Chief Complaint:: Discharge Note HPI: Patient addressing Alcohol, and Cocaine Dependence comorbid with Posttraumatic Stress Disorder, Schizoaffective Disorder and Substance-Induced Sleep Disorder ROS: GERD, LBP, Migraine headache, Morbid obesity were medically managed Current Medications: Active Medications Generic Name Dose Route Start Last Admin Trade Name Freq PRN Reason Stop Dose Admin Acetaminophen 650 mg 11/25/18 13:16 Tylenol - PO Q4H PRN FEVER Al Hydroxide/Mg Hydroxide 30 ml 11/25/18 13:16 Mylanta Oral Suspension - PO Q6H PRN DYSPEPSIA Diphenhydramine HCl 25 mg 12/08/18 10:22 12/10/18 21:30 Benadryl - PO 25 mg Q6H PRN Administration FOR ITCHING Eucalyptus/Menthol/Phenol/Sorbitol 1 each 11/25/18 13:16 12/03/18 10:05 Cepastat Lozenge - MM 1 each Q4H PRN Administration SORE THROAT Guaifenesin 20 ml 11/26/18 14:32 12/03/18 10:06 Robitussin - PO 20 ml Q6H PRN Administration COUGH Hydrocortisone 1 applic 12/06/18 00:07 12/17/18 05:38 Hytone 1% Cream - TP 1 applic QID PRN Administration FOR ITCHING Ibuprofen 600 mg 11/26/18 14:32 12/14/18 10:22 Motrin - PO 600 mg Q6H PRN Administration PAIN LEVEL 7 - 10 Loperamide HCl 4 mg 11/25/18 13:16 Imodium - PO Q6H PRN DIARRHEA Magnesium Citrate 300 ml 11/25/18 13:16 Citroma - PO Q48H PRN CONSTIPATION Magnesium Hydroxide 30 ml 11/25/18 13:16 Milk Of Magnesia - PO DAILY PRN CONSTIPATION Melatonin 5 mg 11/25/18 22:00 Melatonin PO HS PRN INSOMNIA Methyl Salicylate 1 applic 11/26/18 22:00 12/17/18 09:58 Jm-Garay - TP Not Given BID JONAH Pantoprazole Sodium 40 mg 11/26/18 10:00 12/17/18 09:57 Protonix - PO 40 mg DAILY JONAH Administration Multivit/Folic Acid/Iron 1 tab 11/26/18 10:00 12/17/18 09:57 Vitamins (Sjr) - PO 1 tab DAILY JONAH Administration Pseudoephedrine/Triprolidine 1 combo 11/25/18 13:16 12/17/18 09:59 Actifed - PO 1 combo Q8H PRN Administration NASAL CONGESTION Quetiapine Fumarate 400 mg 11/26/18 22:00 12/16/18 22:24 Seroquel - PO Not Given HS JONAH Sertraline HCl 100 mg 11/26/18 14:20 12/17/18 09:57 Zoloft - PO 100 mg DAILY JONAH Administration Thiamine HCl 100 mg 11/25/18 22:00 12/16/18 22:24 Vitamin B1 - PO Not Given HS JONAH Current Side Effect: No Lab tests ordered: Yes Lab tests reviewed: Yes Provider note:: Patient will complete this program on 12/18/18. He has met his treatment goals and will continue to address his issues in penitentiary residential treatment at [facility] at [address] [place] [address]. Told brief writer that from his participation in this program, he has learned to identify his triggers and better waysto avoid them. He responded well to Zoloft 100 mg po daily, Seroquel 400 mg po HS. Scripts for both medications will be electronically transmitted to [facility] at [address] [place] [address]. He is stable for discharge on 12/18/18 Total face to face time:: 35 Mental Status Exam - Mental Status Exam Alert and Oriented to: Time, Place, Person Cognitive Function: Fair Patient Appearance: Well Groomed Mood: Hopeful, Euthymic Affect: Appropriate Patient Behavior: Cooperative Speech Pattern: Clear Voice Loudness: Normal Thought Process: Intact, Goal Oriented Thought Disorder: Not Present Hallucinations: Denies Suicidal Ideation: Denies Homicidal Ideation: Denies Insight/Judgement: Fair Sleep: Fair Appetite: Good Muscle strength/Tone: Normal Gait/Station: Normal Psychiatric Treatment Plan - Problem List (1) Alcohol dependence Current Visit: No (2) Cocaine dependence Current Visit: No Qualifiers: Substance use status: uncomplicated Qualified Code(s): F14.20 - Cocaine dependence, uncomplicated (3) PTSD (post-traumatic stress disorder) Current Visit: No (4) Schizoaffective disorder Current Visit: No Qualifiers: Schizoaffective disorder type: bipolar Qualified Code(s): F25.0 - Schizoaffective disorder, bipolar type (5) Bipolar I disorder, most recent episode depressed Current Visit: No (6) Substance-induced sleep disorder Current Visit: No (7) GERD (gastroesophageal reflux disease) Current Visit: Yes Qualifiers: Esophagitis presence: without esophagitis Qualified Code(s): K21.9 - Gastro -esophageal reflux disease without esophagitis (8) Low back pain Current Visit: No Qualifiers: Chronicity: chronic (9) Migraine headache Current Visit: No (10) Morbid obesity Current Visit: No Initial treatment plan: Patient will be discharged tomorrow and referred to [facility] treatment
[2018-12-17] MEDS: THIAMINE HCL 100 MG TABLET (FP) PO SCH (22:44)
[2018-12-17] MEDS: QUEtiapine FUMARATE 400 MG TABLET PO SCH (22:44)
[2018-12-18] MEDS: HYDROCORTISONE 1% TOPICAL CREAM 30 GM TUBE TP PRN (05:27)
[2018-12-18 06:48] VITALS: BP 130/79; PULSE 103; TEMP 98
== END 2018-12-18 08:25 | disposition home or self-care (01) | DRG 772 ==
LOC: YASAS 11:33 → Y3W 11:34
PROVIDERS: ADMIT Psychiatry & Neurology Psychiatry; ATTEND Psychiatry & Neurology Psychiatry
PROC: HZ42ZZZ Group Counseling for Substance Abuse Treatment, Cognitive-Behavioral (ICD-10-PCS; principal; 2018-11-25)
DX: F10.20 Alcohol dependence, uncomplicated (principal); F14.20 Cocaine dependence, uncomplicated; F25.0 Schizoaffective disorder, bipolar type; F19.282 Other psychoactive substance dependence with psychoactive substance-induced sleep disorder; F43.10 Post-traumatic stress disorder, unspecified; G43.909 Migraine, unspecified, not intractable, without status migrainosus; K21.9 Gastro-esophageal reflux disease without esophagitis; M54.5 Low back pain; G89.29 Other chronic pain; E66.01 Morbid (severe) obesity due to excess calories; Z68.42 Body mass index [BMI] 45.0-49.9, adult; L27.0 Generalized skin eruption due to drugs and medicaments taken internally; T37.0X5A Adverse effect of sulfonamides, initial encounter; Y92.238 Other place in hospital as the place of occurrence of the external cause
CPT/HCPCS: 36415; 81003; 87389

== ENCOUNTER 2021-03-24 11:01 | Inpatient (IN) | payer OTHER ==
[2021-03-24 12:22] VITALS: BMI 43.5
[2021-03-24] MEDS ORDERED: P-EPHED 60MG/TRIPROLIDI 2.5MG TABLET PO PRN (13:19)
[2021-03-24] MEDS ORDERED: NICOTINE POLACRILEX 2 MG GUM BC PRN (13:19)
[2021-03-24] MEDS ORDERED: MAGNESIUM HYDROX 2400MG/30ML ORAL SUSPENSION 30 ML CUP PO PRN (13:19)
[2021-03-24] MEDS ORDERED: MAG HYDROX/AL HYDROX/SIMETH 30 ML UNIT-DOSE CUP PO PRN (13:19)
[2021-03-24] MEDS ORDERED: IBUPROFEN 400 MG TABLET (FP) PO PRN (13:19)
[2021-03-24] MEDS ORDERED: LOPERAMIDE HCL 2 MG CAPSULE PO PRN (13:19)
[2021-03-24] MEDS ORDERED: guaiFENesin 200 MG/10 ML 10 ML UNIT-DOSE CUPS PO PRN (13:19)
[2021-03-24] MEDS ORDERED: MAGNESIUM CITRATE 300 ML BOTTLE PO PRN (13:19)
[2021-03-24] MEDS ORDERED: ACETAMINOPHEN 325 MG TABLET (FP) PO PRN (13:19)
[2021-03-24] MEDS ORDERED: CLONAZEPAM 0.5 MG PO PRN (13:51)
[2021-03-24] MEDS ORDERED: clonazePAM 0.5 MG ODT TABLETS PO PRN (13:56)
[2021-03-24] MEDS: hydrOXYzine PAMOATE 25 MG CAPSULE (FP) PO SCH ×3 (14:52→21:25)
[2021-03-24] MEDS: PRENATAL VITAMINS W/ FOLIC ACID TABLET (FP) PO SCH (14:52)
[2021-03-24] MEDS: PANTOPRAZOLE 40 MG TABLET PO SCH (14:53)
[2021-03-24 17:00] LABS: HEMATOCRIT 42.8 % (35.4-49); HEMOGLOBIN 14.3 GM/dL (11.7-16.9); MCH 31.8 pg (25.7-33.7); MCHC 33.4 g/dl (32.0-35.9); MEAN CELL VOLUME 95.2 fl (80-96); MEAN PLT VOLUME 10.1 fl (7.5-11.1); PLATELET COUNT 212 K/MM3 (134-434); RBC 4.49 M/mm3 (4.00-5.60); RDW 13.8 % (11.9-15.9); WHITE BLOOD COUNT 11.9 K/mm3 (4.0-10.0)
[2021-03-24 17:06] LABS: BLOOD UREA NITROGEN 14.4 mg/dL (7-18); CALCIUM 9.2 mg/dL (8.5-10.1)
[2021-03-24] MEDS ORDERED: TUBERCULIN PPD 5 TU/0.1ML VIAL ID ONE ×2 (17:07→23:32)
[2021-03-24 17:09] LABS: CREATININE 1.3 mg/dL (0.55-1.3)
[2021-03-24 17:11] LABS: BILIRUBIN,TOTAL 0.5 mg/dL (0.2-1); TOT PROT 7.6 g/dl (6.4-8.2)
[2021-03-24 17:58] LABS: HIV INTERPRETATION NEGATIVE (NEGATIVE)
[2021-03-24] MEDS ORDERED: PT OWN MED DRAWER 7, Y5N ONE (21:27)
[2021-03-24] MEDS ORDERED: MELATONIN 5 MG TABLETS PO SCH (22:00)
[2021-03-24] MEDS ORDERED: PRAZOSIN HCL 1 MG CAPSULE PO SCH (22:00)
[2021-03-24] MEDS ORDERED: QUEtiapine FUMARATE 400 MG TABLET PO SCH (22:00)
[2021-03-24] MEDS ORDERED: THIAMINE HCL 100 MG TABLET (FP) PO SCH (22:00)
[2021-03-25] MEDS: hydrOXYzine PAMOATE 25 MG CAPSULE (FP) PO SCH ×3 (08:20→13:13)
[2021-03-25 08:50] VITALS: BP 110/73; PULSE 98; TEMP 97.2
[2021-03-25] MEDS ORDERED: LORATADINE 10 MG TABLET PO SCH (10:00)
[2021-03-25] MEDS ORDERED: SERTRALINE HCL 50 MG TABLET (FP) PO SCH (10:00)
[2021-03-25] MEDS: PRENATAL VITAMINS W/ FOLIC ACID TABLET (FP) PO SCH (10:05)
[2021-03-25] MEDS: PANTOPRAZOLE 40 MG TABLET PO SCH (10:05)
== END 2021-03-25 13:20 | disposition home or self-care (01) | DRG 772 ==
LOC: YASAS 11:01 → Y3E 13:29
PROVIDERS: ADMIT Allergy & Immunology; ATTEND Allergy & Immunology
PROC: HZ42ZZZ Group Counseling for Substance Abuse Treatment, Cognitive-Behavioral (ICD-10-PCS; principal; 2021-03-24)
DX: F10.20 Alcohol dependence, uncomplicated (principal); F14.20 Cocaine dependence, uncomplicated; F13.10 Sedative, hypnotic or anxiolytic abuse, uncomplicated; F17.210 Nicotine dependence, cigarettes, uncomplicated; F19.280 Other psychoactive substance dependence with psychoactive substance-induced anxiety disorder; F19.282 Other psychoactive substance dependence with psychoactive substance-induced sleep disorder; F19.24 Other psychoactive substance dependence with psychoactive substance-induced mood disorder; F25.0 Schizoaffective disorder, bipolar type; F43.10 Post-traumatic stress disorder, unspecified; U07.1 COVID-19; K21.9 Gastro-esophageal reflux disease without esophagitis; M54.89 Other dorsalgia; G89.29 Other chronic pain; E66.01 Morbid (severe) obesity due to excess calories; Z68.41 Body mass index [BMI] 40.0-44.9, adult; Z62.810 Personal history of physical and sexual abuse in childhood
CPT/HCPCS: 36415; 80053; 85027; 86780; 87389; C9803; U0003; U0005

== ENCOUNTER 2021-04-12 06:36 | Inpatient (IN) | payer OTHER ==
[2021-04-12 07:27] VITALS: BMI 45.4
[2021-04-12] MEDS ORDERED: MENTHOL/PHENOL 1 EACH UD MM PRN (09:23)
[2021-04-12] MEDS ORDERED: BISMUTH SUBSALICYLATE 524 MG/30 ML PO PRN (09:23)
[2021-04-12] MEDS ORDERED: MAG HYDROX/AL HYDROX/SIMETH 30 ML UNIT-DOSE CUP PO PRN (09:23)
[2021-04-12] MEDS ORDERED: ACETAMINOPHEN 325 MG TABLET (FP) PO PRN ×2 (09:23)
[2021-04-12] MEDS ORDERED: MAGNESIUM HYDROX 2400MG/30ML ORAL SUSPENSION 30 ML CUP PO PRN (09:23)
[2021-04-12] MEDS ORDERED: LORazepam 1 MG TABLET PO PRN (09:23)
[2021-04-12] MEDS ORDERED: NICOTINE POLACRILEX 2 MG GUM BUC PRN (09:23)
[2021-04-12] MEDS ORDERED: MAGNESIUM CITRATE 300 ML BOTTLE PO PRN (09:23)
[2021-04-12] MEDS ORDERED: ONDANSETRON *ODT* 4 MG TABLET SL PRN (09:23)
[2021-04-12] MEDS: LORazepam 2 MG TABLET PO SCH ×3 (10:47→22:43)
[2021-04-12] MEDS: NICOTINE 14 MG/24 HOURS TOPICAL PATCH TD SCH (10:47)
[2021-04-12] MEDS: hydrOXYzine PAMOATE 25 MG CAPSULE (FP) PO SCH ×4 (10:47→22:43)
[2021-04-12] MEDS: PRENATAL VITAMINS W/ FOLIC ACID TABLET (FP) PO SCH (10:47)
[2021-04-12 12:49] LABS: HEMATOCRIT 42.8 % (35.4-49); HEMOGLOBIN 14.3 GM/dL (11.7-16.9); MCH 31.4 pg (25.7-33.7); MCHC 33.5 g/dl (32.0-35.9); MEAN CELL VOLUME 93.8 fl (80-96); MEAN PLT VOLUME 11.1 fl (7.5-11.1); PLATELET COUNT 234 K/MM3 (134-434); RBC 4.56 M/mm3 (4.00-5.60); RDW 13.4 % (11.9-15.9); WHITE BLOOD COUNT 8.8 K/mm3 (4.0-10.0)
[2021-04-12 13:18] LABS: CALCIUM 9.2 mg/dL (8.5-10.1)
[2021-04-12 13:20] LABS: BLOOD UREA NITROGEN 9.7 mg/dL (7-18)
[2021-04-12 13:23] LABS: CREATININE 1.1 mg/dL (0.55-1.3)
[2021-04-12 13:24] LABS: BILIRUBIN,TOTAL 0.3 mg/dL (0.2-1); TOT PROT 7.5 g/dl (6.4-8.2)
[2021-04-12] MEDS: IBUPROFEN 400 MG TABLET (FP) PO PRN (19:31)
[2021-04-12] MEDS: METHOCARBAMOL 500 MG TABLET PO PRN (19:31)
[2021-04-12] MEDS: THIAMINE HCL 100 MG TABLET (FP) PO SCH (22:43)
[2021-04-12] MEDS: PRAZOSIN HCL 1 MG CAPSULE PO SCH (22:43)
[2021-04-12] MEDS: QUEtiapine FUMARATE 200 MG TABLET PO SCH (22:43)
[2021-04-12] MEDS: MELATONIN 5 MG TABLETS PO SCH (22:44)
[2021-04-13] MEDS: hydrOXYzine PAMOATE 25 MG CAPSULE (FP) PO SCH ×5 (07:37→22:44)
[2021-04-13] MEDS: IBUPROFEN 400 MG TABLET (FP) PO PRN (07:37)
[2021-04-13] MEDS: METHOCARBAMOL 500 MG TABLET PO PRN (07:37)
[2021-04-13] MEDS: LORazepam 2 MG TABLET PO SCH ×4 (07:38→22:43)
[2021-04-13] MEDS: PRENATAL VITAMINS W/ FOLIC ACID TABLET (FP) PO SCH (10:37)
[2021-04-13] MEDS: SERTRALINE HCL 50 MG TABLET (FP) PO SCH (10:38)
[2021-04-13] MEDS: NICOTINE 14 MG/24 HOURS TOPICAL PATCH TD SCH (10:39)
[2021-04-13] MEDS ORDERED: ERGOCALCIFEROL (VIT D2) 50,000 UNIT (1.25 MG) CAPSULE PO SCH (11:00)
[2021-04-13] MEDS: FAMOTIDINE 20 MG TABLET PO SCH ×2 (13:11→22:44)
[2021-04-13] MEDS: EMTRICITABINE/TENOFOV ALAFENAM (DESCOVY) TABLET PO SCH (13:11)
[2021-04-13] MEDS: PRAZOSIN HCL 1 MG CAPSULE PO SCH (22:44)
[2021-04-13] MEDS: THIAMINE HCL 100 MG TABLET (FP) PO SCH (22:44)
[2021-04-13] MEDS: QUEtiapine FUMARATE 200 MG TABLET PO SCH (22:44)
[2021-04-13] MEDS: MELATONIN 5 MG TABLETS PO SCH (22:44)
[2021-04-14] MEDS: LORazepam 1 MG TABLET PO SCH ×4 (05:30→23:13)
[2021-04-14] MEDS: hydrOXYzine PAMOATE 25 MG CAPSULE (FP) PO SCH ×5 (05:30→23:14)
[2021-04-14] MEDS: IBUPROFEN 400 MG TABLET (FP) PO PRN ×2 (05:30→17:45)
[2021-04-14] MEDS: METHOCARBAMOL 500 MG TABLET PO PRN (05:31)
[2021-04-14] MEDS: PRENATAL VITAMINS W/ FOLIC ACID TABLET (FP) PO SCH (10:30)
[2021-04-14] MEDS: FAMOTIDINE 20 MG TABLET PO SCH ×2 (10:30→23:14)
[2021-04-14] MEDS: SERTRALINE HCL 50 MG TABLET (FP) PO SCH (10:30)
[2021-04-14] MEDS: EMTRICITABINE/TENOFOV ALAFENAM (DESCOVY) TABLET PO SCH (10:32)
[2021-04-14] MEDS: NICOTINE 14 MG/24 HOURS TOPICAL PATCH TD SCH (10:32)
[2021-04-14] MEDS: MELATONIN 5 MG TABLETS PO SCH (23:13)
[2021-04-14] MEDS: QUEtiapine FUMARATE 200 MG TABLET PO SCH (23:14)
[2021-04-14] MEDS: THIAMINE HCL 100 MG TABLET (FP) PO SCH (23:14)
[2021-04-14] MEDS: PRAZOSIN HCL 1 MG CAPSULE PO SCH (23:14)
[2021-04-15] MEDS ORDERED: LORazepam 0.5 MG TABLET PO PRN
[2021-04-15] MEDS: LORazepam 0.5 MG TABLET PO SCH ×4 (05:32→23:54)
[2021-04-15] MEDS: hydrOXYzine PAMOATE 25 MG CAPSULE (FP) PO SCH ×5 (05:32→23:53)
[2021-04-15 06:07] LABS: SARS-CoV-2 NAA Not Detected (Not Detected)
[2021-04-15] MEDS: SERTRALINE HCL 50 MG TABLET (FP) PO SCH (10:07)
[2021-04-15] MEDS: FAMOTIDINE 20 MG TABLET PO SCH ×2 (10:08→23:53)
[2021-04-15] MEDS: PRENATAL VITAMINS W/ FOLIC ACID TABLET (FP) PO SCH (10:08)
[2021-04-15] MEDS: NICOTINE 14 MG/24 HOURS TOPICAL PATCH TD SCH (10:08)
[2021-04-15] MEDS: EMTRICITABINE/TENOFOV ALAFENAM (DESCOVY) TABLET PO SCH (10:09)
[2021-04-15] MEDS: IBUPROFEN 400 MG TABLET (FP) PO PRN ×2 (10:10→18:40)
[2021-04-15] MEDS: MELATONIN 5 MG TABLETS PO SCH (23:52)
[2021-04-15] MEDS: PRAZOSIN HCL 1 MG CAPSULE PO SCH (23:53)
[2021-04-15] MEDS: QUEtiapine FUMARATE 200 MG TABLET PO SCH (23:53)
[2021-04-15] MEDS: THIAMINE HCL 100 MG TABLET (FP) PO SCH (23:54)
[2021-04-16] MEDS ORDERED: LORazepam 0.5 MG TABLET PO ONE (05:00)
[2021-04-16] MEDS: hydrOXYzine PAMOATE 25 MG CAPSULE (FP) PO SCH ×2 (08:20→13:29)
[2021-04-16 09:18] VITALS: BP 130/64; PULSE 59; TEMP 96.4
[2021-04-16] MEDS: EMTRICITABINE/TENOFOV ALAFENAM (DESCOVY) TABLET PO SCH (09:27)
[2021-04-16] MEDS: FAMOTIDINE 20 MG TABLET PO SCH (09:27)
[2021-04-16] MEDS: PRENATAL VITAMINS W/ FOLIC ACID TABLET (FP) PO SCH (09:27)
[2021-04-16] MEDS: NICOTINE 14 MG/24 HOURS TOPICAL PATCH TD SCH (09:28)
[2021-04-16] MEDS: SERTRALINE HCL 50 MG TABLET (FP) PO SCH (09:29)
== END 2021-04-16 10:00 | disposition other institution (70) | DRG 775 ==
LOC: YASAS 06:36 → Y3N 09:37
PROVIDERS: ADMIT Allergy & Immunology; ATTEND Allergy & Immunology
PROC: HZ2ZZZZ Detoxification Services for Substance Abuse Treatment (ICD-10-PCS; principal; 2021-04-12)
DX: F10.230 Alcohol dependence with withdrawal, uncomplicated (principal); F17.210 Nicotine dependence, cigarettes, uncomplicated; F25.0 Schizoaffective disorder, bipolar type; F19.24 Other psychoactive substance dependence with psychoactive substance-induced mood disorder; F43.10 Post-traumatic stress disorder, unspecified; G47.00 Insomnia, unspecified; G43.909 Migraine, unspecified, not intractable, without status migrainosus; K21.9 Gastro-esophageal reflux disease without esophagitis; M54.5 Low back pain; G89.29 Other chronic pain; E66.01 Morbid (severe) obesity due to excess calories; Z68.42 Body mass index [BMI] 45.0-49.9, adult; Z86.16 Personal history of COVID-19; Z91.013 Allergy to seafood; Z91.018 Allergy to other foods; Z56.0 Unemployment, unspecified; Z59.0 Homelessness
CPT/HCPCS: 36415; 80053; 85027; 86780; C9803; U0003; U0005

== ENCOUNTER 2021-05-25 12:04 | Inpatient (IN) | payer OTHER ==
[2021-05-25 13:09] VITALS: BMI 44.4
[2021-05-25] MEDS ORDERED: BISMUTH SUBSALICYLATE 524 MG/30 ML PO PRN (13:41)
[2021-05-25] MEDS ORDERED: LORazepam 1 MG TABLET PO PRN (13:41)
[2021-05-25] MEDS ORDERED: ONDANSETRON *ODT* 4 MG TABLET SL PRN (13:41)
[2021-05-25] MEDS ORDERED: ACETAMINOPHEN 325 MG TABLET (FP) PO PRN ×2 (13:41)
[2021-05-25] MEDS ORDERED: MAGNESIUM CITRATE 300 ML BOTTLE PO PRN (13:41)
[2021-05-25] MEDS ORDERED: MENTHOL/PHENOL 1 EACH UD MM PRN (13:41)
[2021-05-25] MEDS ORDERED: MAGNESIUM HYDROX 2400MG/30ML ORAL SUSPENSION 30 ML CUP PO PRN (13:41)
[2021-05-25] MEDS ORDERED: IBUPROFEN 400 MG TABLET (FP) PO PRN (13:41)
[2021-05-25] MEDS ORDERED: NICOTINE POLACRILEX 2 MG GUM BUC PRN (13:41)
[2021-05-25] MEDS ORDERED: MAG HYDROX/AL HYDROX/SIMETH 30 ML UNIT-DOSE CUP PO PRN (13:41)
[2021-05-25] MEDS ORDERED: METHOCARBAMOL 500 MG TABLET PO PRN (13:41)
[2021-05-25] MEDS: hydrOXYzine PAMOATE 25 MG CAPSULE (FP) PO SCH ×3 (14:23→22:41)
[2021-05-25] MEDS: NICOTINE 7 MG/24 HOURS TOPICAL PATCH TD SCH (14:23)
[2021-05-25] MEDS: PRENATAL VITAMINS W/ FOLIC ACID TABLET (FP) PO SCH (14:23)
[2021-05-25] MEDS: LORazepam 2 MG TABLET PO SCH ×2 (18:37→22:41)
[2021-05-25] MEDS: MELATONIN 5 MG TABLETS PO SCH (22:41)
[2021-05-25] MEDS: QUEtiapine FUMARATE 200 MG TABLET PO SCH (22:41)
[2021-05-25] MEDS: THIAMINE HCL 100 MG TABLET (FP) PO SCH (22:41)
[2021-05-26] MEDS: LORazepam 2 MG TABLET PO SCH ×4 (07:09→23:09)
[2021-05-26] MEDS: hydrOXYzine PAMOATE 25 MG CAPSULE (FP) PO SCH ×5 (07:09→23:09)
[2021-05-26 09:59] LABS: HEMATOCRIT 45.1 % (35.4-49); HEMOGLOBIN 14.7 GM/dL (11.7-16.9); MCH 30.7 pg (25.7-33.7); MCHC 32.6 g/dl (32.0-35.9); MEAN CELL VOLUME 94.3 fl (80-96); PLATELET COUNT 248 10^3/uL (134-434); RBC 4.78 M/mm3 (4.00-5.60); RDW 13.8 % (11.9-15.9)
[2021-05-26] MEDS ORDERED: ERGOCALCIFEROL (VIT D2) 50,000 UNIT (1.25 MG) CAPSULE PO SCH (10:00)
[2021-05-26 10:07] LABS: ALBUMIN 4.3 g/dl (3.4-5.0); BLOOD UREA NITROGEN 15.1 mg/dL (7-18); CALCIUM 9.5 mg/dL (8.5-10.1)
[2021-05-26 10:11] LABS: TOT PROT 7.9 g/dl (6.4-8.2)
[2021-05-26 10:19] LABS: BILIRUBIN,TOTAL 0.5 mg/dL (0.2-1); CREATININE 1.3 mg/dL (0.55-1.3)
[2021-05-26] MEDS: PRENATAL VITAMINS W/ FOLIC ACID TABLET (FP) PO SCH (10:42)
[2021-05-26] MEDS: NICOTINE 7 MG/24 HOURS TOPICAL PATCH TD SCH (10:42)
[2021-05-26] MEDS: SERTRALINE HCL 50 MG TABLET (FP) PO SCH (10:43)
[2021-05-26] MEDS: MELATONIN 5 MG TABLETS PO SCH (23:09)
[2021-05-26] MEDS: QUEtiapine FUMARATE 200 MG TABLET PO SCH (23:09)
[2021-05-26] MEDS: THIAMINE HCL 100 MG TABLET (FP) PO SCH (23:09)
[2021-05-27] MEDS: hydrOXYzine PAMOATE 25 MG CAPSULE (FP) PO SCH ×5 (05:51→23:04)
[2021-05-27] MEDS: LORazepam 1 MG TABLET PO SCH ×4 (05:52→23:03)
[2021-05-27] MEDS: PRENATAL VITAMINS W/ FOLIC ACID TABLET (FP) PO SCH (10:15)
[2021-05-27] MEDS: NICOTINE 7 MG/24 HOURS TOPICAL PATCH TD SCH (10:15)
[2021-05-27] MEDS: SERTRALINE HCL 50 MG TABLET (FP) PO SCH (10:15)
[2021-05-27] MEDS: EMTRICITABINE/TENOFOV ALAFENAM (DESCOVY) TABLET PO SCH (12:14)
[2021-05-27] MEDS: QUEtiapine FUMARATE 200 MG TABLET PO SCH (23:04)
[2021-05-27] MEDS: MELATONIN 5 MG TABLETS PO SCH (23:04)
[2021-05-27] MEDS: THIAMINE HCL 100 MG TABLET (FP) PO SCH (23:04)
[2021-05-28] MEDS ORDERED: LORazepam 0.5 MG TABLET PO PRN
[2021-05-28] MEDS: LORazepam 0.5 MG TABLET PO SCH ×4 (06:11→23:32)
[2021-05-28] MEDS: hydrOXYzine PAMOATE 25 MG CAPSULE (FP) PO SCH ×5 (06:11→23:32)
[2021-05-28] MEDS: SERTRALINE HCL 50 MG TABLET (FP) PO SCH (10:10)
[2021-05-28] MEDS: NICOTINE 7 MG/24 HOURS TOPICAL PATCH TD SCH (10:10)
[2021-05-28] MEDS: EMTRICITABINE/TENOFOV ALAFENAM (DESCOVY) TABLET PO SCH (10:10)
[2021-05-28] MEDS: PRENATAL VITAMINS W/ FOLIC ACID TABLET (FP) PO SCH (10:10)
[2021-05-28] MEDS: MELATONIN 5 MG TABLETS PO SCH (23:32)
[2021-05-28] MEDS: QUEtiapine FUMARATE 200 MG TABLET PO SCH (23:32)
[2021-05-28] MEDS: THIAMINE HCL 100 MG TABLET (FP) PO SCH (23:32)
[2021-05-29] MEDS ORDERED: LORazepam 0.5 MG TABLET PO ONE (05:00)
[2021-05-29] MEDS: hydrOXYzine PAMOATE 25 MG CAPSULE (FP) PO SCH ×2 (07:33→10:26)
[2021-05-29 09:44] VITALS: BP 112/62; PULSE 71; TEMP 96.9
[2021-05-29] MEDS: EMTRICITABINE/TENOFOV ALAFENAM (DESCOVY) TABLET PO SCH (10:26)
[2021-05-29] MEDS: PRENATAL VITAMINS W/ FOLIC ACID TABLET (FP) PO SCH (10:26)
[2021-05-29] MEDS: SERTRALINE HCL 50 MG TABLET (FP) PO SCH (10:26)
[2021-05-29] MEDS: NICOTINE 7 MG/24 HOURS TOPICAL PATCH TD SCH (10:26)
[2021-05-29] MEDS ORDERED: hydrOXYzine PAMOATE 25 MG CAPSULE (FP) PO PRN (10:47)
== END 2021-05-29 11:51 | disposition other institution (70) | DRG 774 ==
LOC: YASAS 12:04 → Y3N 13:11
PROVIDERS: ADMIT Allergy & Immunology; ATTEND Allergy & Immunology
PROC: HZ2ZZZZ Detoxification Services for Substance Abuse Treatment (ICD-10-PCS; principal; 2021-05-25)
DX: F10.230 Alcohol dependence with withdrawal, uncomplicated (principal); F14.20 Cocaine dependence, uncomplicated; F17.210 Nicotine dependence, cigarettes, uncomplicated; F31.89 Other bipolar disorder; F43.10 Post-traumatic stress disorder, unspecified; F25.0 Schizoaffective disorder, bipolar type; F19.24 Other psychoactive substance dependence with psychoactive substance-induced mood disorder; K21.9 Gastro-esophageal reflux disease without esophagitis; G47.00 Insomnia, unspecified; M54.5 Low back pain; G89.29 Other chronic pain; R73.9 Hyperglycemia, unspecified; D72.829 Elevated white blood cell count, unspecified; E66.01 Morbid (severe) obesity due to excess calories; Z68.41 Body mass index [BMI] 40.0-44.9, adult; Z62.810 Personal history of physical and sexual abuse in childhood; Z91.013 Allergy to seafood; Z91.018 Allergy to other foods; Z88.1 Allergy status to other antibiotic agents; Z88.2 Allergy status to sulfonamides
CPT/HCPCS: 36415; 80053; 83036; 85027; 86780; C9803; Q0162; U0003; U0005

== ENCOUNTER 2021-05-30 08:04 | Inpatient (IN) | payer OTHER ==
[2021-05-30 08:58] VITALS: BMI 40.7
[2021-05-30] MEDS ORDERED: MAGNESIUM CITRATE 300 ML BOTTLE PO PRN (12:15)
[2021-05-30] MEDS ORDERED: IBUPROFEN 400 MG TABLET (FP) PO PRN (12:15)
[2021-05-30] MEDS ORDERED: MAG HYDROX/AL HYDROX/SIMETH 30 ML UNIT-DOSE CUP PO PRN (12:15)
[2021-05-30] MEDS ORDERED: P-EPHED 60MG/TRIPROLIDI 2.5MG TABLET PO PRN (12:15)
[2021-05-30] MEDS ORDERED: LOPERAMIDE HCL 2 MG CAPSULE PO PRN (12:15)
[2021-05-30] MEDS ORDERED: ACETAMINOPHEN 325 MG TABLET (FP) PO PRN (12:15)
[2021-05-30] MEDS ORDERED: MAGNESIUM HYDROX 2400MG/30ML ORAL SUSPENSION 30 ML CUP PO PRN (12:15)
[2021-05-30] MEDS ORDERED: guaiFENesin 200 MG/10 ML 10 ML UNIT-DOSE CUPS PO PRN (12:15)
[2021-05-30] MEDS: IBUPROFEN 400 MG TABLET (FP) PO PRN (15:30)
[2021-05-30] MEDS: hydrOXYzine PAMOATE 25 MG CAPSULE (FP) PO SCH ×3 (15:30→23:14)
[2021-05-30] MEDS: NICOTINE 7 MG/24 HOURS TOPICAL PATCH TD SCH (15:31)
[2021-05-30] MEDS: PRENATAL VITAMINS W/ FOLIC ACID TABLET (FP) PO SCH (15:31)
[2021-05-30] MEDS: EMTRICITABINE/TENOFOV ALAFENAM (DESCOVY) TABLET PO SCH (15:46)
[2021-05-30] MEDS: ERGOCALCIFEROL (VIT D2) 50,000 UNIT (1.25 MG) CAPSULE PO SCH (15:47)
[2021-05-30 21:41] LABS: EPI CELLS 4 /uL (0-25.1); HYALINE CASTS 1 /uL (0-3.1); PH,URINE 7.5 (5.0-8.0); URINE APPEARANCE CLEAR; URINE BACTERIA 27 /uL (0-1359); URINE BILIRUBIN NEGATIVE (NEGATIVE); URINE COLOR YELLOW; URINE GLUCOSE (UA) NEGATIVE (NEGATIVE); URINE KETONE NEGATIVE (NEGATIVE); URINE LEUK ESTERASE TRACE (NEGATIVE); URINE NITRITE NEGATIVE (NEGATIVE); URINE PROTEIN NEGATIVE (NEGATIVE); URINE RBC 5 /uL (0-23.9); URINE WBC 5 /uL (0-25.8)
[2021-05-30] MEDS: PANTOPRAZOLE 40 MG TABLET PO SCH (23:14)
[2021-05-30] MEDS: THIAMINE HCL 100 MG TABLET (FP) PO SCH (23:14)
[2021-05-30] MEDS: MELATONIN 5 MG TABLETS PO SCH (23:14)
[2021-05-30] MEDS: QUEtiapine FUMARATE 400 MG TABLET PO SCH (23:14)
[2021-05-31] MEDS: hydrOXYzine PAMOATE 25 MG CAPSULE (FP) PO SCH ×2 (06:33→10:21)
[2021-05-31] MEDS ORDERED: PT OWN MED DRAWER 7, Y5N ONE (08:54)
[2021-05-31] MEDS: PRENATAL VITAMINS W/ FOLIC ACID TABLET (FP) PO SCH (10:19)
[2021-05-31] MEDS: SERTRALINE HCL 50 MG TABLET (FP) PO SCH (10:20)
[2021-05-31] MEDS: PANTOPRAZOLE 40 MG TABLET PO SCH (10:20)
[2021-05-31] MEDS: FOLIC ACID 1 MG TABLET (FP) PO SCH (10:20)
[2021-05-31] MEDS: NICOTINE 7 MG/24 HOURS TOPICAL PATCH TD SCH (10:20)
[2021-05-31] MEDS: EMTRICITABINE/TENOFOV ALAFENAM (DESCOVY) TABLET PO SCH (10:21)
[2021-05-31] MEDS ORDERED: hydrOXYzine PAMOATE 25 MG CAPSULE (FP) PO PRN (12:46)
[2021-05-31] MEDS: IBUPROFEN 400 MG TABLET (FP) PO PRN (17:19)
[2021-05-31] MEDS: MELATONIN 5 MG TABLETS PO SCH (22:21)
[2021-05-31] MEDS: THIAMINE HCL 100 MG TABLET (FP) PO SCH (22:22)
[2021-05-31] MEDS: QUEtiapine FUMARATE 400 MG TABLET PO SCH (22:22)
[2021-06-01] MEDS: PANTOPRAZOLE 40 MG TABLET PO SCH (07:02)
[2021-06-01] MEDS: SERTRALINE HCL 50 MG TABLET (FP) PO SCH (10:02)
[2021-06-01] MEDS: NICOTINE 7 MG/24 HOURS TOPICAL PATCH TD SCH (10:02)
[2021-06-01] MEDS: PRENATAL VITAMINS W/ FOLIC ACID TABLET (FP) PO SCH (10:02)
[2021-06-01] MEDS: FOLIC ACID 1 MG TABLET (FP) PO SCH (10:06)
[2021-06-01] MEDS: EMTRICITABINE/TENOFOV ALAFENAM (DESCOVY) TABLET PO SCH (10:06)
[2021-06-01] MEDS: MELATONIN 5 MG TABLETS PO SCH (22:03)
[2021-06-01] MEDS: QUEtiapine FUMARATE 400 MG TABLET PO SCH (22:04)
[2021-06-01] MEDS: THIAMINE HCL 100 MG TABLET (FP) PO SCH (22:04)
[2021-06-02] MEDS: PANTOPRAZOLE 40 MG TABLET PO SCH (06:52)
[2021-06-02] MEDS: PRENATAL VITAMINS W/ FOLIC ACID TABLET (FP) PO SCH (10:02)
[2021-06-02] MEDS: EMTRICITABINE/TENOFOV ALAFENAM (DESCOVY) TABLET PO SCH (10:03)
[2021-06-02] MEDS: NICOTINE 7 MG/24 HOURS TOPICAL PATCH TD SCH (10:03)
[2021-06-02] MEDS: FOLIC ACID 1 MG TABLET (FP) PO SCH (10:03)
[2021-06-02] MEDS: SERTRALINE HCL 50 MG TABLET (FP) PO SCH (10:04)
[2021-06-02] MEDS: MELATONIN 5 MG TABLETS PO SCH (22:56)
[2021-06-02] MEDS: THIAMINE HCL 100 MG TABLET (FP) PO SCH (22:56)
[2021-06-02] MEDS: QUEtiapine FUMARATE 400 MG TABLET PO SCH (22:56)
[2021-06-03] MEDS: PANTOPRAZOLE 40 MG TABLET PO SCH (06:23)
[2021-06-03] MEDS: NICOTINE 7 MG/24 HOURS TOPICAL PATCH TD SCH (10:06)
[2021-06-03] MEDS: PRENATAL VITAMINS W/ FOLIC ACID TABLET (FP) PO SCH (10:06)
[2021-06-03] MEDS: SERTRALINE HCL 50 MG TABLET (FP) PO SCH (10:07)
[2021-06-03] MEDS: FOLIC ACID 1 MG TABLET (FP) PO SCH (10:08)
[2021-06-03] MEDS: EMTRICITABINE/TENOFOV ALAFENAM (DESCOVY) TABLET PO SCH (10:08)
[2021-06-03] MEDS: QUEtiapine FUMARATE 400 MG TABLET PO SCH (22:35)
[2021-06-03] MEDS: MELATONIN 5 MG TABLETS PO SCH (22:35)
[2021-06-03] MEDS: THIAMINE HCL 100 MG TABLET (FP) PO SCH (22:35)
[2021-06-04] MEDS: PANTOPRAZOLE 40 MG TABLET PO SCH (06:45)
[2021-06-04] MEDS: NICOTINE 7 MG/24 HOURS TOPICAL PATCH TD SCH (09:59)
[2021-06-04] MEDS: SERTRALINE HCL 50 MG TABLET (FP) PO SCH (09:59)
[2021-06-04] MEDS: FOLIC ACID 1 MG TABLET (FP) PO SCH (09:59)
[2021-06-04] MEDS: PRENATAL VITAMINS W/ FOLIC ACID TABLET (FP) PO SCH (09:59)
[2021-06-04] MEDS: EMTRICITABINE/TENOFOV ALAFENAM (DESCOVY) TABLET PO SCH (10:00)
[2021-06-04] MEDS ORDERED: MASKS NR ONE (11:00)
[2021-06-04] MEDS: QUEtiapine FUMARATE 400 MG TABLET PO SCH (22:15)
[2021-06-04] MEDS: MELATONIN 5 MG TABLETS PO SCH (22:15)
[2021-06-04] MEDS: THIAMINE HCL 100 MG TABLET (FP) PO SCH (22:15)
[2021-06-05] MEDS: PANTOPRAZOLE 40 MG TABLET PO SCH (06:40)
[2021-06-05] MEDS: PRENATAL VITAMINS W/ FOLIC ACID TABLET (FP) PO SCH (09:59)
[2021-06-05] MEDS: SERTRALINE HCL 50 MG TABLET (FP) PO SCH (09:59)
[2021-06-05] MEDS: FOLIC ACID 1 MG TABLET (FP) PO SCH (09:59)
[2021-06-05] MEDS: NICOTINE 7 MG/24 HOURS TOPICAL PATCH TD SCH (10:00)
[2021-06-05] MEDS: EMTRICITABINE/TENOFOV ALAFENAM (DESCOVY) TABLET PO SCH (10:00)
[2021-06-05] MEDS: MELATONIN 5 MG TABLETS PO SCH (23:37)
[2021-06-05] MEDS: QUEtiapine FUMARATE 400 MG TABLET PO SCH (23:37)
[2021-06-05] MEDS: THIAMINE HCL 100 MG TABLET (FP) PO SCH (23:38)
[2021-06-06] MEDS: PANTOPRAZOLE 40 MG TABLET PO SCH (06:40)
[2021-06-06] MEDS ORDERED: PT OWN MED DRAWER 7, Y5N ONE ×2 (08:20→09:59)
[2021-06-06] MEDS: ERGOCALCIFEROL (VIT D2) 50,000 UNIT (1.25 MG) CAPSULE PO SCH (09:55)
[2021-06-06] MEDS: FOLIC ACID 1 MG TABLET (FP) PO SCH (09:55)
[2021-06-06] MEDS: PRENATAL VITAMINS W/ FOLIC ACID TABLET (FP) PO SCH (09:55)
[2021-06-06] MEDS: SERTRALINE HCL 50 MG TABLET (FP) PO SCH (09:55)
[2021-06-06] MEDS: NICOTINE 7 MG/24 HOURS TOPICAL PATCH TD SCH (09:57)
[2021-06-06] MEDS: EMTRICITABINE/TENOFOV ALAFENAM (DESCOVY) TABLET PO SCH (09:57)
[2021-06-06] MEDS: QUEtiapine FUMARATE 400 MG TABLET PO SCH (19:30)
[2021-06-06] MEDS: MELATONIN 5 MG TABLETS PO SCH (22:36)
[2021-06-06] MEDS: THIAMINE HCL 100 MG TABLET (FP) PO SCH (22:37)
[2021-06-07] MEDS: PANTOPRAZOLE 40 MG TABLET PO SCH (06:28)
[2021-06-07] MEDS: NICOTINE 7 MG/24 HOURS TOPICAL PATCH TD SCH (10:06)
[2021-06-07] MEDS: PRENATAL VITAMINS W/ FOLIC ACID TABLET (FP) PO SCH (10:06)
[2021-06-07] MEDS: FOLIC ACID 1 MG TABLET (FP) PO SCH (10:06)
[2021-06-07] MEDS: SERTRALINE HCL 50 MG TABLET (FP) PO SCH (10:06)
[2021-06-07] MEDS: EMTRICITABINE/TENOFOV ALAFENAM (DESCOVY) TABLET PO SCH (10:07)
[2021-06-07] MEDS: QUEtiapine FUMARATE 400 MG TABLET PO SCH (20:15)
[2021-06-07] MEDS: THIAMINE HCL 100 MG TABLET (FP) PO SCH (22:07)
[2021-06-07] MEDS: MELATONIN 5 MG TABLETS PO SCH (22:07)
[2021-06-08] MEDS: PANTOPRAZOLE 40 MG TABLET PO SCH (06:03)
[2021-06-08] MEDS: NICOTINE 7 MG/24 HOURS TOPICAL PATCH TD SCH (10:09)
[2021-06-08] MEDS: PRENATAL VITAMINS W/ FOLIC ACID TABLET (FP) PO SCH (10:09)
[2021-06-08] MEDS: SERTRALINE HCL 50 MG TABLET (FP) PO SCH (10:10)
[2021-06-08] MEDS: EMTRICITABINE/TENOFOV ALAFENAM (DESCOVY) TABLET PO SCH (10:10)
[2021-06-08] MEDS: FOLIC ACID 1 MG TABLET (FP) PO SCH (10:10)
[2021-06-08] MEDS: QUEtiapine FUMARATE 400 MG TABLET PO SCH (22:19)
[2021-06-08] MEDS: THIAMINE HCL 100 MG TABLET (FP) PO SCH (22:19)
[2021-06-08] MEDS: MELATONIN 5 MG TABLETS PO SCH (22:19)
[2021-06-09] MEDS: PANTOPRAZOLE 40 MG TABLET PO SCH (06:17)
[2021-06-09] MEDS: PRENATAL VITAMINS W/ FOLIC ACID TABLET (FP) PO SCH (10:05)
[2021-06-09] MEDS: EMTRICITABINE/TENOFOV ALAFENAM (DESCOVY) TABLET PO SCH (10:06)
[2021-06-09] MEDS: FOLIC ACID 1 MG TABLET (FP) PO SCH (10:06)
[2021-06-09] MEDS: SERTRALINE HCL 50 MG TABLET (FP) PO SCH (10:06)
[2021-06-09] MEDS: NICOTINE 7 MG/24 HOURS TOPICAL PATCH TD SCH (10:06)
[2021-06-09] MEDS: QUEtiapine FUMARATE 400 MG TABLET PO SCH (22:50)
[2021-06-09] MEDS: THIAMINE HCL 100 MG TABLET (FP) PO SCH (22:51)
[2021-06-09] MEDS: MELATONIN 5 MG TABLETS PO SCH (22:51)
[2021-06-10] MEDS: PANTOPRAZOLE 40 MG TABLET PO SCH (06:41)
[2021-06-10] MEDS ORDERED: PT OWN MED DRAWER 7, Y5N ONE (08:42)
[2021-06-10] MEDS: PRENATAL VITAMINS W/ FOLIC ACID TABLET (FP) PO SCH (09:54)
[2021-06-10] MEDS: EMTRICITABINE/TENOFOV ALAFENAM (DESCOVY) TABLET PO SCH (09:55)
[2021-06-10] MEDS: SERTRALINE HCL 50 MG TABLET (FP) PO SCH (09:55)
[2021-06-10] MEDS: FOLIC ACID 1 MG TABLET (FP) PO SCH (09:55)
[2021-06-10] MEDS: NICOTINE 7 MG/24 HOURS TOPICAL PATCH TD SCH (09:56)
[2021-06-10] MEDS: MELATONIN 5 MG TABLETS PO SCH (22:10)
[2021-06-10] MEDS: THIAMINE HCL 100 MG TABLET (FP) PO SCH (22:10)
[2021-06-10] MEDS: QUEtiapine FUMARATE 400 MG TABLET PO SCH (22:10)
[2021-06-11] MEDS: PANTOPRAZOLE 40 MG TABLET PO SCH (06:38)
[2021-06-11] MEDS: FOLIC ACID 1 MG TABLET (FP) PO SCH (09:55)
[2021-06-11] MEDS: PRENATAL VITAMINS W/ FOLIC ACID TABLET (FP) PO SCH (09:55)
[2021-06-11] MEDS: SERTRALINE HCL 50 MG TABLET (FP) PO SCH (09:55)
[2021-06-11] MEDS: NICOTINE 7 MG/24 HOURS TOPICAL PATCH TD SCH (09:56)
[2021-06-11] MEDS: EMTRICITABINE/TENOFOV ALAFENAM (DESCOVY) TABLET PO SCH (09:56)
[2021-06-11] MEDS: IBUPROFEN 400 MG TABLET (FP) PO PRN ×2 (09:57→18:09)
[2021-06-11] MEDS: THIAMINE HCL 100 MG TABLET (FP) PO SCH (21:00)
[2021-06-11] MEDS: QUEtiapine FUMARATE 400 MG TABLET PO SCH (21:00)
[2021-06-11] MEDS: MELATONIN 5 MG TABLETS PO SCH (21:00)
[2021-06-12] MEDS: PANTOPRAZOLE 40 MG TABLET PO SCH (06:29)
[2021-06-12] MEDS: PRENATAL VITAMINS W/ FOLIC ACID TABLET (FP) PO SCH (10:21)
[2021-06-12] MEDS: NICOTINE 7 MG/24 HOURS TOPICAL PATCH TD SCH (10:21)
[2021-06-12] MEDS: EMTRICITABINE/TENOFOV ALAFENAM (DESCOVY) TABLET PO SCH (10:21)
[2021-06-12] MEDS: FOLIC ACID 1 MG TABLET (FP) PO SCH (10:21)
[2021-06-12] MEDS: SERTRALINE HCL 50 MG TABLET (FP) PO SCH (10:21)
[2021-06-12] MEDS: QUEtiapine FUMARATE 400 MG TABLET PO SCH (22:09)
[2021-06-12] MEDS: MELATONIN 5 MG TABLETS PO SCH (22:09)
[2021-06-12] MEDS: THIAMINE HCL 100 MG TABLET (FP) PO SCH (22:09)
[2021-06-13] MEDS: PANTOPRAZOLE 40 MG TABLET PO SCH (06:05)
[2021-06-13] MEDS: FOLIC ACID 1 MG TABLET (FP) PO SCH (10:00)
[2021-06-13] MEDS: EMTRICITABINE/TENOFOV ALAFENAM (DESCOVY) TABLET PO SCH (10:00)
[2021-06-13] MEDS: SERTRALINE HCL 50 MG TABLET (FP) PO SCH (10:00)
[2021-06-13] MEDS: NICOTINE 7 MG/24 HOURS TOPICAL PATCH TD SCH (10:00)
[2021-06-13] MEDS: PRENATAL VITAMINS W/ FOLIC ACID TABLET (FP) PO SCH (10:00)
[2021-06-13] MEDS: ERGOCALCIFEROL (VIT D2) 50,000 UNIT (1.25 MG) CAPSULE PO SCH (11:53)
[2021-06-13] MEDS: LIDOCAINE 5% TOPICAL PATCH TP SCH (11:53)
[2021-06-13 18:44] LABS: HIV INTERPRETATION NEGATIVE (NEGATIVE)
[2021-06-13] MEDS: THIAMINE HCL 100 MG TABLET (FP) PO SCH (21:54)
[2021-06-13] MEDS: LIDOCAINE PATCH REMOVAL MC SCH (21:54)
[2021-06-13] MEDS: MELATONIN 5 MG TABLETS PO SCH (21:54)
[2021-06-13] MEDS: QUEtiapine FUMARATE 400 MG TABLET PO SCH (21:54)
[2021-06-14] MEDS: PANTOPRAZOLE 40 MG TABLET PO SCH (06:12)
[2021-06-14] MEDS: SERTRALINE HCL 50 MG TABLET (FP) PO SCH (09:57)
[2021-06-14] MEDS: LIDOCAINE 5% TOPICAL PATCH TP SCH (09:57)
[2021-06-14] MEDS: FOLIC ACID 1 MG TABLET (FP) PO SCH (09:57)
[2021-06-14] MEDS: EMTRICITABINE/TENOFOV ALAFENAM (DESCOVY) TABLET PO SCH (09:57)
[2021-06-14] MEDS: PRENATAL VITAMINS W/ FOLIC ACID TABLET (FP) PO SCH (09:57)
[2021-06-14] MEDS: NICOTINE 7 MG/24 HOURS TOPICAL PATCH TD SCH (09:58)
[2021-06-14] MEDS: QUEtiapine FUMARATE 400 MG TABLET PO SCH (20:59)
[2021-06-14] MEDS: THIAMINE HCL 100 MG TABLET (FP) PO SCH (22:59)
[2021-06-14] MEDS: MELATONIN 5 MG TABLETS PO SCH (22:59)
[2021-06-14] MEDS: LIDOCAINE PATCH REMOVAL MC SCH (22:59)
[2021-06-15] MEDS: PANTOPRAZOLE 40 MG TABLET PO SCH (06:22)
[2021-06-15] MEDS: FOLIC ACID 1 MG TABLET (FP) PO SCH (09:54)
[2021-06-15] MEDS: SERTRALINE HCL 50 MG TABLET (FP) PO SCH (09:54)
[2021-06-15] MEDS: PRENATAL VITAMINS W/ FOLIC ACID TABLET (FP) PO SCH (09:54)
[2021-06-15] MEDS: EMTRICITABINE/TENOFOV ALAFENAM (DESCOVY) TABLET PO SCH (09:54)
[2021-06-15] MEDS: LIDOCAINE 5% TOPICAL PATCH TP SCH (09:55)
[2021-06-15] MEDS: NICOTINE 7 MG/24 HOURS TOPICAL PATCH TD SCH (09:55)
[2021-06-15 15:27] LABS: PH,URINE 5.5 (5.0-8.0); URINE APPEARANCE CLEAR; URINE BILIRUBIN NEGATIVE (NEGATIVE); URINE COLOR YELLOW; URINE GLUCOSE (UA) NEGATIVE (NEGATIVE); URINE KETONE NEGATIVE (NEGATIVE); URINE LEUK ESTERASE NEGATIVE (NEGATIVE); URINE NITRITE NEGATIVE (NEGATIVE); URINE PROTEIN NEGATIVE (NEGATIVE); URINE UROBILINOGEN 0.2 mg/dL (0.2-1.0)
[2021-06-15] MEDS: QUEtiapine FUMARATE 400 MG TABLET PO SCH (20:50)
[2021-06-15] MEDS: MELATONIN 5 MG TABLETS PO SCH (22:45)
[2021-06-15] MEDS: LIDOCAINE PATCH REMOVAL MC SCH (22:45)
[2021-06-15] MEDS: THIAMINE HCL 100 MG TABLET (FP) PO SCH (22:45)
[2021-06-16] MEDS: PANTOPRAZOLE 40 MG TABLET PO SCH (06:00)
[2021-06-16] MEDS ORDERED: PT OWN MED DRAWER 7, Y5N ONE (08:23)
[2021-06-16] MEDS: PRENATAL VITAMINS W/ FOLIC ACID TABLET (FP) PO SCH (09:51)
[2021-06-16] MEDS: FOLIC ACID 1 MG TABLET (FP) PO SCH (09:51)
[2021-06-16] MEDS: EMTRICITABINE/TENOFOV ALAFENAM (DESCOVY) TABLET PO SCH (09:52)
[2021-06-16] MEDS: LIDOCAINE 5% TOPICAL PATCH TP SCH (09:52)
[2021-06-16] MEDS: NICOTINE 7 MG/24 HOURS TOPICAL PATCH TD SCH (09:53)
[2021-06-16] MEDS: SERTRALINE HCL 50 MG TABLET (FP) PO SCH (09:54)
[2021-06-16] MEDS: QUEtiapine FUMARATE 400 MG TABLET PO SCH (19:38)
[2021-06-16] MEDS: LIDOCAINE PATCH REMOVAL MC SCH (22:30)
[2021-06-16] MEDS: THIAMINE HCL 100 MG TABLET (FP) PO SCH (22:30)
[2021-06-16] MEDS: MELATONIN 5 MG TABLETS PO SCH (22:30)
[2021-06-17] MEDS: PANTOPRAZOLE 40 MG TABLET PO SCH (06:51)
[2021-06-17] MEDS: SERTRALINE HCL 50 MG TABLET (FP) PO SCH (09:40)
[2021-06-17] MEDS: PRENATAL VITAMINS W/ FOLIC ACID TABLET (FP) PO SCH (09:40)
[2021-06-17] MEDS: EMTRICITABINE/TENOFOV ALAFENAM (DESCOVY) TABLET PO SCH (09:41)
[2021-06-17] MEDS: IBUPROFEN 400 MG TABLET (FP) PO PRN ×2 (09:41→17:45)
[2021-06-17] MEDS: LIDOCAINE 5% TOPICAL PATCH TP SCH (09:42)
[2021-06-17] MEDS: NICOTINE 7 MG/24 HOURS TOPICAL PATCH TD SCH (09:42)
[2021-06-17] MEDS: FOLIC ACID 1 MG TABLET (FP) PO SCH (09:42)
[2021-06-17] MEDS: NICOTINE POLACRILEX 2 MG GUM BUC PRN ×2 (12:30→16:56)
[2021-06-17] MEDS: QUEtiapine FUMARATE 400 MG TABLET PO SCH (22:33)
[2021-06-17] MEDS: THIAMINE HCL 100 MG TABLET (FP) PO SCH (22:34)
[2021-06-17] MEDS: LIDOCAINE PATCH REMOVAL MC SCH (22:34)
[2021-06-17] MEDS: MELATONIN 5 MG TABLETS PO SCH (22:34)
[2021-06-18] MEDS: PANTOPRAZOLE 40 MG TABLET PO SCH (06:32)
[2021-06-18] MEDS ORDERED: PT OWN MED DRAWER 7, Y5N ONE ×2 (09:03→09:46)
[2021-06-18] MEDS: SERTRALINE HCL 50 MG TABLET (FP) PO SCH (09:45)
[2021-06-18] MEDS: EMTRICITABINE/TENOFOV ALAFENAM (DESCOVY) TABLET PO SCH (09:45)
[2021-06-18] MEDS: FOLIC ACID 1 MG TABLET (FP) PO SCH (09:46)
[2021-06-18] MEDS: NICOTINE POLACRILEX 2 MG GUM BUC PRN (09:46)
[2021-06-18] MEDS: NICOTINE 7 MG/24 HOURS TOPICAL PATCH TD SCH (09:46)
[2021-06-18] MEDS: PRENATAL VITAMINS W/ FOLIC ACID TABLET (FP) PO SCH (09:46)
[2021-06-18] MEDS: LIDOCAINE 5% TOPICAL PATCH TP SCH (10:03)
[2021-06-18] MEDS: MELATONIN 5 MG TABLETS PO SCH (21:58)
[2021-06-18] MEDS: LIDOCAINE PATCH REMOVAL MC SCH (21:58)
[2021-06-18] MEDS: QUEtiapine FUMARATE 400 MG TABLET PO SCH (21:58)
[2021-06-18] MEDS: THIAMINE HCL 100 MG TABLET (FP) PO SCH (21:58)
[2021-06-19] MEDS: NICOTINE POLACRILEX 2 MG GUM BUC PRN ×2 (05:49→10:01)
[2021-06-19] MEDS: PANTOPRAZOLE 40 MG TABLET PO SCH (05:49)
[2021-06-19] MEDS ORDERED: PT OWN MED DRAWER 7, Y5N ONE (08:46)
[2021-06-19] MEDS: EMTRICITABINE/TENOFOV ALAFENAM (DESCOVY) TABLET PO SCH (09:58)
[2021-06-19] MEDS: FOLIC ACID 1 MG TABLET (FP) PO SCH (09:58)
[2021-06-19] MEDS: PRENATAL VITAMINS W/ FOLIC ACID TABLET (FP) PO SCH (09:59)
[2021-06-19] MEDS: SERTRALINE HCL 50 MG TABLET (FP) PO SCH (09:59)
[2021-06-19] MEDS: LIDOCAINE 5% TOPICAL PATCH TP SCH (09:59)
[2021-06-19] MEDS: NICOTINE 7 MG/24 HOURS TOPICAL PATCH TD SCH (09:59)
[2021-06-19] MEDS: THIAMINE HCL 100 MG TABLET (FP) PO SCH (21:00)
[2021-06-19] MEDS: MELATONIN 5 MG TABLETS PO SCH (21:00)
[2021-06-19] MEDS: QUEtiapine FUMARATE 400 MG TABLET PO SCH (21:00)
[2021-06-19] MEDS: LIDOCAINE PATCH REMOVAL MC SCH (22:48)
[2021-06-20] MEDS: PANTOPRAZOLE 40 MG TABLET PO SCH (06:31)
[2021-06-20 08:14] VITALS: BP 100/50; PULSE 64; TEMP 97.3
[2021-06-20] MEDS: LIDOCAINE 5% TOPICAL PATCH TP SCH (09:01)
[2021-06-20] MEDS: NICOTINE 7 MG/24 HOURS TOPICAL PATCH TD SCH (09:01)
[2021-06-20] MEDS: PRENATAL VITAMINS W/ FOLIC ACID TABLET (FP) PO SCH (09:01)
[2021-06-20] MEDS: SERTRALINE HCL 50 MG TABLET (FP) PO SCH (09:01)
[2021-06-20] MEDS: FOLIC ACID 1 MG TABLET (FP) PO SCH (09:02)
[2021-06-20] MEDS: ERGOCALCIFEROL (VIT D2) 50,000 UNIT (1.25 MG) CAPSULE PO SCH (09:02)
[2021-06-20] MEDS: EMTRICITABINE/TENOFOV ALAFENAM (DESCOVY) TABLET PO SCH (09:03)
== END 2021-06-20 09:45 | disposition home or self-care (01) | DRG 772 ==
LOC: YASAS 08:04 → Y5N 12:58
PROVIDERS: ADMIT Allergy & Immunology; ATTEND Allergy & Immunology
PROC: HZ42ZZZ Group Counseling for Substance Abuse Treatment, Cognitive-Behavioral (ICD-10-PCS; principal; 2021-05-30)
DX: F10.20 Alcohol dependence, uncomplicated (principal); F14.20 Cocaine dependence, uncomplicated; F17.210 Nicotine dependence, cigarettes, uncomplicated; F25.9 Schizoaffective disorder, unspecified; F31.9 Bipolar disorder, unspecified; F43.10 Post-traumatic stress disorder, unspecified; G47.00 Insomnia, unspecified; G43.909 Migraine, unspecified, not intractable, without status migrainosus; K21.9 Gastro-esophageal reflux disease without esophagitis; E66.01 Morbid (severe) obesity due to excess calories; Z68.41 Body mass index [BMI] 40.0-44.9, adult; Z86.16 Personal history of COVID-19; Z91.018 Allergy to other foods; Z91.013 Allergy to seafood
CPT/HCPCS: 36415; 81003; 86803; 87389; C9803; U0003; U0005

== ENCOUNTER 2021-08-26 07:02 | Inpatient (IN) | payer OTHER ==
[2021-08-26 09:12] VITALS: BMI 40.7
[2021-08-26] MEDS ORDERED: MAG HYDROX/AL HYDROX/SIMETH 30 ML UNIT-DOSE CUP PO PRN (11:31)
[2021-08-26] MEDS ORDERED: BISMUTH SUBSALICYLATE 524 MG/30 ML PO PRN (11:31)
[2021-08-26] MEDS ORDERED: MENTHOL/PHENOL 1 EACH UD MM PRN (11:31)
[2021-08-26] MEDS ORDERED: ACETAMINOPHEN 325 MG TABLET (FP) PO PRN ×2 (11:31)
[2021-08-26] MEDS ORDERED: MAGNESIUM HYDROX 2400MG/30ML ORAL SUSPENSION 30 ML CUP PO PRN (11:31)
[2021-08-26] MEDS ORDERED: MAGNESIUM CITRATE 300 ML BOTTLE PO PRN (11:31)
[2021-08-26] MEDS ORDERED: NICOTINE 10 MG CARTRIDGE (INHALER) IH PRN (11:31)
[2021-08-26] MEDS ORDERED: METHOCARBAMOL 500 MG TABLET PO PRN (11:31)
[2021-08-26] MEDS ORDERED: ONDANSETRON *ODT* 4 MG TABLET SL PRN (11:31)
[2021-08-26] MEDS ORDERED: LORazepam 2 MG TABLET PO ONE (11:31)
[2021-08-26] MEDS ORDERED: LORazepam 1 MG TABLET PO PRN (11:31)
[2021-08-26] MEDS ORDERED: IBUPROFEN 400 MG TABLET (FP) PO PRN (11:34)
[2021-08-26] MEDS ORDERED: LORazepam 2 MG TABLET ONE (12:05)
[2021-08-26] MEDS: LORazepam 2 MG TABLET PO SCH ×2 (18:41→22:58)
[2021-08-26] MEDS: NICOTINE 21 MG/24 HOURS TOPICAL PATCH TD SCH (18:44)
[2021-08-26] MEDS: PANTOPRAZOLE 40 MG TABLET PO SCH (18:44)
[2021-08-26] MEDS ORDERED: MELATONIN 5 MG TABLETS PO SCH (22:00)
[2021-08-26] MEDS: THIAMINE HCL 100 MG TABLET (FP) PO SCH (22:57)
[2021-08-26] MEDS: METHYL SALICYLATE/MENTHOL OINT 30 GM TUBE TP SCH ×2 (22:58→22:59)
[2021-08-26] MEDS: EMTRICITABINE/TENOFOV ALAFENAM (DESCOVY) TABLET PO SCH (22:58)
[2021-08-27] MEDS: LORazepam 2 MG TABLET PO SCH ×4 (07:30→23:17)
[2021-08-27] MEDS: NICOTINE 21 MG/24 HOURS TOPICAL PATCH TD SCH (10:20)
[2021-08-27] MEDS: PANTOPRAZOLE 40 MG TABLET PO SCH (10:20)
[2021-08-27] MEDS: PRENATAL VITAMINS W/ FOLIC ACID TABLET (FP) PO SCH (10:21)
[2021-08-27 10:30] LABS: HEMATOCRIT 45.3 % (35.4-49); MCH 31.7 pg (25.7-33.7); MEAN CELL VOLUME 95.9 fl (80-96); MEAN PLT VOLUME 10.5 fl (7.5-11.1); PLATELET COUNT 222 10^3/uL (134-434); RBC 4.73 M/mm3 (4.00-5.60); RDW 12.9 % (11.9-15.9); WHITE BLOOD COUNT 7.8 K/mm3 (4.0-10.0)
[2021-08-27 10:34] LABS: CALCIUM 9.1 mg/dL (8.5-10.1)
[2021-08-27 10:35] LABS: ALBUMIN 3.5 g/dl (3.4-5.0); BLOOD UREA NITROGEN 10.1 mg/dL (7-18)
[2021-08-27 10:38] LABS: CREATININE 1.1 mg/dL (0.55-1.3)
[2021-08-27 10:41] LABS: BILIRUBIN,TOTAL 0.4 mg/dL (0.2-1)
[2021-08-27 10:42] LABS: TOT PROT 7.1 g/dl (6.4-8.2)
[2021-08-27] MEDS: METHYL SALICYLATE/MENTHOL OINT 30 GM TUBE TP SCH ×2 (13:42→23:11)
[2021-08-27] MEDS: SERTRALINE HCL 50 MG TABLET (FP) PO SCH (13:43)
[2021-08-27] MEDS: EMTRICITABINE/TENOFOV ALAFENAM (DESCOVY) TABLET PO SCH (13:43)
[2021-08-27] MEDS: QUEtiapine FUMARATE 400 MG TABLET PO SCH (23:17)
[2021-08-27] MEDS: THIAMINE HCL 100 MG TABLET (FP) PO SCH (23:17)
[2021-08-28] MEDS: LORazepam 1 MG TABLET PO SCH ×4 (06:46→23:11)
[2021-08-28] MEDS: METHYL SALICYLATE/MENTHOL OINT 30 GM TUBE TP SCH ×2 (10:18→23:11)
[2021-08-28] MEDS: NICOTINE 21 MG/24 HOURS TOPICAL PATCH TD SCH (10:18)
[2021-08-28] MEDS: PANTOPRAZOLE 40 MG TABLET PO SCH (10:18)
[2021-08-28] MEDS: EMTRICITABINE/TENOFOV ALAFENAM (DESCOVY) TABLET PO SCH (10:18)
[2021-08-28] MEDS: SERTRALINE HCL 50 MG TABLET (FP) PO SCH (10:18)
[2021-08-28] MEDS: PRENATAL VITAMINS W/ FOLIC ACID TABLET (FP) PO SCH (10:19)
[2021-08-28] MEDS: THIAMINE HCL 100 MG TABLET (FP) PO SCH (23:11)
[2021-08-28] MEDS: QUEtiapine FUMARATE 400 MG TABLET PO SCH (23:11)
[2021-08-29] MEDS ORDERED: LORazepam 0.5 MG TABLET PO PRN
[2021-08-29] MEDS: LORazepam 0.5 MG TABLET PO SCH ×4 (06:23→23:13)
[2021-08-29] MEDS: SERTRALINE HCL 50 MG TABLET (FP) PO SCH (10:11)
[2021-08-29] MEDS: EMTRICITABINE/TENOFOV ALAFENAM (DESCOVY) TABLET PO SCH (10:11)
[2021-08-29] MEDS: PRENATAL VITAMINS W/ FOLIC ACID TABLET (FP) PO SCH (10:11)
[2021-08-29] MEDS: PANTOPRAZOLE 40 MG TABLET PO SCH (10:12)
[2021-08-29] MEDS: NICOTINE 21 MG/24 HOURS TOPICAL PATCH TD SCH (10:12)
[2021-08-29] MEDS: METHYL SALICYLATE/MENTHOL OINT 30 GM TUBE TP SCH ×2 (10:13→23:12)
[2021-08-29] MEDS: QUEtiapine FUMARATE 400 MG TABLET PO SCH (23:12)
[2021-08-29] MEDS: THIAMINE HCL 100 MG TABLET (FP) PO SCH (23:13)
[2021-08-30] MEDS ORDERED: LORazepam 0.5 MG TABLET PO ONE (05:00)
[2021-08-30 06:45] VITALS: BP 118/76; PULSE 86; TEMP 97.3
== END 2021-08-30 09:04 | disposition other institution (70) | DRG 774 ==
LOC: YASAS 07:02 → Y3N 16:29
PROVIDERS: ADMIT Allergy & Immunology; ATTEND Allergy & Immunology
PROC: HZ2ZZZZ Detoxification Services for Substance Abuse Treatment (ICD-10-PCS; principal; 2021-08-26)
DX: F10.230 Alcohol dependence with withdrawal, uncomplicated (principal); F14.20 Cocaine dependence, uncomplicated; F17.210 Nicotine dependence, cigarettes, uncomplicated; F19.282 Other psychoactive substance dependence with psychoactive substance-induced sleep disorder; G43.909 Migraine, unspecified, not intractable, without status migrainosus; K21.9 Gastro-esophageal reflux disease without esophagitis; M54.50 Low back pain, unspecified; G89.29 Other chronic pain; Z62.810 Personal history of physical and sexual abuse in childhood; E66.01 Morbid (severe) obesity due to excess calories; Z68.41 Body mass index [BMI] 40.0-44.9, adult; Z86.16 Personal history of COVID-19; Z88.2 Allergy status to sulfonamides; Z91.018 Allergy to other foods
CPT/HCPCS: 36415; 80053; 85027; 86780; C9803; U0003; U0005

== ENCOUNTER 2022-01-23 16:21 | Inpatient (IN) | payer OTHER ==
[2022-01-23] MEDS ORDERED: ONDANSETRON *ODT* 4 MG TABLET SL PRN (18:30)
[2022-01-23] MEDS ORDERED: BISMUTH SUBSALICYLATE 524 MG/30 ML PO PRN (18:30)
[2022-01-23] MEDS ORDERED: ACETAMINOPHEN 325 MG TABLET (FP) PO PRN ×2 (18:30)
[2022-01-23] MEDS ORDERED: hydrOXYzine PAMOATE 25 MG CAPSULE (FP) PO PRN (18:30)
[2022-01-23] MEDS ORDERED: NICOTINE POLACRILEX 2 MG GUM BUC PRN (18:30)
[2022-01-23] MEDS ORDERED: MAG HYDROX/AL HYDROX/SIMETH 30 ML UNIT-DOSE CUP PO PRN (18:30)
[2022-01-23] MEDS ORDERED: LOPERAMIDE HCL 2 MG CAPSULE PO PRN (18:30)
[2022-01-23] MEDS ORDERED: MELATONIN 5 MG TABLETS PO PRN (18:30)
[2022-01-23] MEDS ORDERED: MAGNESIUM HYDROX 2400MG/30ML ORAL SUSPENSION 30 ML CUP PO PRN (18:30)
[2022-01-23] MEDS ORDERED: MENTHOL/PHENOL 1 EACH UD MM PRN (18:30)
[2022-01-23] MEDS ORDERED: MAGNESIUM CITRATE 300 ML BOTTLE PO PRN (18:30)
[2022-01-23] MEDS ORDERED: diazePAM 5 MG TABLET PO PRN (18:32)
[2022-01-23] MEDS ORDERED: IBUPROFEN 400 MG TABLET (FP) PO PRN (18:32)
[2022-01-23 21:32] VITALS: BMI 43.8
[2022-01-23] MEDS: PETROLATUM, WHITE 30 GM TUBE TP SCH (22:39)
[2022-01-23] MEDS: diazePAM 5 MG TABLET PO SCH (22:44)
[2022-01-23] MEDS: THIAMINE HCL 100 MG TABLET (FP) PO SCH (22:44)
[2022-01-24] MEDS: diazePAM 5 MG TABLET PO SCH ×4 (05:21→22:28)
[2022-01-24] MEDS ORDERED: PANTOPRAZOLE 40 MG TABLET PO ONE (08:00)
[2022-01-24] MEDS ORDERED: PANTOPRAZOLE 40 MG TABLET PO SCH (10:00)
[2022-01-24] MEDS: EMTRICITABINE/TENOFOV ALAFENAM (DESCOVY) TABLET PO SCH (10:04)
[2022-01-24] MEDS: PRENATAL VITAMINS W/ FOLIC ACID TABLET (FP) PO SCH (10:04)
[2022-01-24] MEDS: PETROLATUM, WHITE 30 GM TUBE TP SCH (10:06)
[2022-01-24] MEDS: NICOTINE 7 MG/24 HOURS TOPICAL PATCH TD SCH (10:06)
[2022-01-24] MEDS: SERTRALINE HCL 50 MG TABLET (FP) PO SCH (10:06)
[2022-01-24 14:15] LABS: HEMATOCRIT 42.6 % (35.4-49); HEMOGLOBIN 14.3 GM/dL (11.7-16.9); MCH 31.5 pg (25.7-33.7); MCHC 33.5 g/dl (32.0-35.9); MEAN CELL VOLUME 93.9 fl (80-96); MEAN PLT VOLUME 10.5 fl (7.5-11.1); PLATELET COUNT 200 10^3/uL (134-434); RBC 4.53 M/mm3 (4.00-5.60); RDW 13.7 % (11.9-15.9); WHITE BLOOD COUNT 6.2 K/mm3 (4.0-10.0)
[2022-01-24 14:32] LABS: ALBUMIN 3.6 g/dl (3.4-5.0); BLOOD UREA NITROGEN 10.6 mg/dL (7-18)
[2022-01-24 14:37] LABS: BILIRUBIN,TOTAL 0.3 mg/dL (0.2-1); TOT PROT 6.6 g/dl (6.4-8.2)
[2022-01-24] MEDS: QUEtiapine FUMARATE 200 MG TABLET PO SCH (22:28)
[2022-01-24] MEDS: THIAMINE HCL 100 MG TABLET (FP) PO SCH (22:28)
[2022-01-25] MEDS: diazePAM 5 MG TABLET PO SCH ×3 (05:47→23:00)
[2022-01-25] MEDS: PANTOPRAZOLE 40 MG TABLET PO SCH (07:30)
[2022-01-25] MEDS: NICOTINE 7 MG/24 HOURS TOPICAL PATCH TD SCH (09:59)
[2022-01-25] MEDS: PETROLATUM, WHITE 30 GM TUBE TP SCH (09:59)
[2022-01-25] MEDS: METHOCARBAMOL 500 MG TABLET PO PRN (09:59)
[2022-01-25] MEDS: PRENATAL VITAMINS W/ FOLIC ACID TABLET (FP) PO SCH (09:59)
[2022-01-25] MEDS: EMTRICITABINE/TENOFOV ALAFENAM (DESCOVY) TABLET PO SCH (09:59)
[2022-01-25] MEDS: SERTRALINE HCL 50 MG TABLET (FP) PO SCH (10:01)
[2022-01-25] MEDS: QUEtiapine FUMARATE 200 MG TABLET PO SCH (22:59)
[2022-01-25] MEDS: THIAMINE HCL 100 MG TABLET (FP) PO SCH (23:00)
[2022-01-26] MEDS: diazePAM 5 MG TABLET PO SCH ×2 (05:24→18:20)
[2022-01-26] MEDS: PANTOPRAZOLE 40 MG TABLET PO SCH (06:03)
[2022-01-26] MEDS: METHOCARBAMOL 500 MG TABLET PO PRN (10:25)
[2022-01-26] MEDS: EMTRICITABINE/TENOFOV ALAFENAM (DESCOVY) TABLET PO SCH (10:25)
[2022-01-26] MEDS: SERTRALINE HCL 50 MG TABLET (FP) PO SCH (10:25)
[2022-01-26] MEDS: PRENATAL VITAMINS W/ FOLIC ACID TABLET (FP) PO SCH (10:26)
[2022-01-26] MEDS: NICOTINE 7 MG/24 HOURS TOPICAL PATCH TD SCH (10:26)
[2022-01-26] MEDS: PETROLATUM, WHITE 30 GM TUBE TP SCH (10:29)
[2022-01-26 14:08] LABS: SARS-CoV-2 NAA Not Detected (Not Detected)
[2022-01-26] MEDS: THIAMINE HCL 100 MG TABLET (FP) PO SCH (23:13)
[2022-01-26] MEDS: QUEtiapine FUMARATE 200 MG TABLET PO SCH (23:13)
[2022-01-27] MEDS ORDERED: diazePAM 5 MG TABLET PO ONE (06:00)
[2022-01-27] MEDS: PANTOPRAZOLE 40 MG TABLET PO SCH (07:26)
[2022-01-27 09:17] VITALS: BP 118/66; PULSE 81; TEMP 97.5
[2022-01-27] MEDS: SERTRALINE HCL 50 MG TABLET (FP) PO SCH (10:09)
[2022-01-27] MEDS: PRENATAL VITAMINS W/ FOLIC ACID TABLET (FP) PO SCH (10:09)
[2022-01-27] MEDS: NICOTINE 7 MG/24 HOURS TOPICAL PATCH TD SCH (10:09)
[2022-01-27] MEDS: PETROLATUM, WHITE 30 GM TUBE TP SCH (10:09)
[2022-01-27] MEDS: EMTRICITABINE/TENOFOV ALAFENAM (DESCOVY) TABLET PO SCH (10:10)
== END 2022-01-27 12:25 | disposition other institution (70) | DRG 774 ==
LOC: YASAS 16:21 → Y3N 21:06
PROVIDERS: ADMIT Allergy & Immunology; ATTEND Allergy & Immunology
PROC: HZ2ZZZZ Detoxification Services for Substance Abuse Treatment (ICD-10-PCS; principal; 2022-01-23)
DX: F10.230 Alcohol dependence with withdrawal, uncomplicated (principal); F14.20 Cocaine dependence, uncomplicated; F17.210 Nicotine dependence, cigarettes, uncomplicated; F19.282 Other psychoactive substance dependence with psychoactive substance-induced sleep disorder; F19.24 Other psychoactive substance dependence with psychoactive substance-induced mood disorder; F25.9 Schizoaffective disorder, unspecified; G43.909 Migraine, unspecified, not intractable, without status migrainosus; K21.9 Gastro-esophageal reflux disease without esophagitis; M54.50 Low back pain, unspecified; G89.29 Other chronic pain; Z62.810 Personal history of physical and sexual abuse in childhood; E66.01 Morbid (severe) obesity due to excess calories; Z68.41 Body mass index [BMI] 40.0-44.9, adult; Z91.018 Allergy to other foods; Z91.013 Allergy to seafood; Z56.0 Unemployment, unspecified; Z59.00 Homelessness unspecified
CPT/HCPCS: 36415; 80053; 85027; 86780; C9803; U0003; U0005

== ENCOUNTER 2022-01-27 12:34 | Inpatient (IN) | payer OTHER ==
[2022-01-27] MEDS ORDERED: IBUPROFEN 400 MG TABLET (FP) PO PRN (13:57)
[2022-01-27] MEDS ORDERED: MAG HYDROX/AL HYDROX/SIMETH 30 ML UNIT-DOSE CUP PO PRN (13:57)
[2022-01-27] MEDS ORDERED: guaiFENesin 200 MG/10 ML 10 ML UNIT-DOSE CUPS PO PRN (13:57)
[2022-01-27] MEDS ORDERED: LOPERAMIDE HCL 2 MG CAPSULE PO PRN (13:57)
[2022-01-27] MEDS ORDERED: MAGNESIUM HYDROX 2400MG/30ML ORAL SUSPENSION 30 ML CUP PO PRN (13:57)
[2022-01-27] MEDS ORDERED: P-EPHED 60MG/TRIPROLIDI 2.5MG TABLET PO PRN (13:57)
[2022-01-27] MEDS ORDERED: MAGNESIUM CITRATE 300 ML BOTTLE PO PRN (13:57)
[2022-01-27] MEDS ORDERED: NICOTINE 10 MG CARTRIDGE (INHALER) IH PRN (13:57)
[2022-01-27] MEDS: hydrOXYzine PAMOATE 25 MG CAPSULE (FP) PO SCH ×2 (14:35→19:56)
[2022-01-27] MEDS: NICOTINE 7 MG/24 HOURS TOPICAL PATCH TD SCH (14:35)
[2022-01-28] MEDS: THIAMINE HCL 100 MG TABLET (FP) PO SCH ×2 (00:02→23:59)
[2022-01-28] MEDS: hydrOXYzine PAMOATE 25 MG CAPSULE (FP) PO SCH ×6 (00:02→23:59)
[2022-01-28] MEDS: MELATONIN 5 MG TABLETS PO SCH ×2 (00:02→23:59)
[2022-01-28] MEDS: QUEtiapine FUMARATE 400 MG TABLET PO SCH ×2 (00:02→23:59)
[2022-01-28] MEDS: SERTRALINE HCL 50 MG TABLET (FP) PO SCH (10:33)
[2022-01-28] MEDS: PRENATAL VITAMINS W/ FOLIC ACID TABLET (FP) PO SCH (10:33)
[2022-01-28] MEDS: PANTOPRAZOLE 40 MG TABLET PO SCH (10:33)
[2022-01-28] MEDS: NICOTINE 7 MG/24 HOURS TOPICAL PATCH TD SCH (10:34)
[2022-01-28] MEDS: EMTRICITABINE/TENOFOV ALAFENAM (DESCOVY) TABLET PO SCH (10:34)
[2022-01-28] MEDS ORDERED: ONDANSETRON *ODT* 4 MG TABLET SL PRN (11:23)
[2022-01-29] MEDS: hydrOXYzine PAMOATE 25 MG CAPSULE (FP) PO SCH ×5 (07:04→21:33)
[2022-01-29] MEDS: PANTOPRAZOLE 40 MG TABLET PO SCH (09:17)
[2022-01-29] MEDS: PRENATAL VITAMINS W/ FOLIC ACID TABLET (FP) PO SCH (09:17)
[2022-01-29] MEDS: EMTRICITABINE/TENOFOV ALAFENAM (DESCOVY) TABLET PO SCH (09:17)
[2022-01-29] MEDS: NICOTINE 7 MG/24 HOURS TOPICAL PATCH TD SCH (09:17)
[2022-01-29] MEDS: SERTRALINE HCL 50 MG TABLET (FP) PO SCH (09:18)
[2022-01-29] MEDS: QUEtiapine FUMARATE 400 MG TABLET PO SCH (21:33)
[2022-01-29] MEDS: MELATONIN 5 MG TABLETS PO SCH (21:33)
[2022-01-29] MEDS: THIAMINE HCL 100 MG TABLET (FP) PO SCH (21:33)
[2022-01-30] MEDS: hydrOXYzine PAMOATE 25 MG CAPSULE (FP) PO SCH ×5 (06:12→23:49)
[2022-01-30] MEDS: IBUPROFEN 400 MG TABLET (FP) PO PRN ×2 (08:41→19:08)
[2022-01-30] MEDS: SERTRALINE HCL 50 MG TABLET (FP) PO SCH (09:44)
[2022-01-30] MEDS: EMTRICITABINE/TENOFOV ALAFENAM (DESCOVY) TABLET PO SCH (09:45)
[2022-01-30] MEDS: PRENATAL VITAMINS W/ FOLIC ACID TABLET (FP) PO SCH (09:45)
[2022-01-30] MEDS ORDERED: PANTOPRAZOLE 40 MG TABLET PO SCH (10:00)
[2022-01-30] MEDS: NICOTINE 7 MG/24 HOURS TOPICAL PATCH TD SCH (10:27)
[2022-01-30] MEDS: ACETAMINOPHEN 325 MG TABLET (FP) PO PRN (12:16)
[2022-01-30 15:10] LABS: HIV INTERPRETATION NEGATIVE (NEGATIVE)
[2022-01-30] MEDS: QUEtiapine FUMARATE 400 MG TABLET PO SCH (23:49)
[2022-01-30] MEDS: THIAMINE HCL 100 MG TABLET (FP) PO SCH (23:49)
[2022-01-30] MEDS: MELATONIN 5 MG TABLETS PO SCH (23:49)
[2022-01-31] MEDS: hydrOXYzine PAMOATE 25 MG CAPSULE (FP) PO SCH ×5 (06:44→23:14)
[2022-01-31] MEDS: PRENATAL VITAMINS W/ FOLIC ACID TABLET (FP) PO SCH (10:31)
[2022-01-31] MEDS: EMTRICITABINE/TENOFOV ALAFENAM (DESCOVY) TABLET PO SCH (10:31)
[2022-01-31] MEDS: SERTRALINE HCL 50 MG TABLET (FP) PO SCH (10:31)
[2022-01-31] MEDS: NICOTINE 7 MG/24 HOURS TOPICAL PATCH TD SCH (10:32)
[2022-01-31] MEDS: THIAMINE HCL 100 MG TABLET (FP) PO SCH (23:14)
[2022-01-31] MEDS: MELATONIN 5 MG TABLETS PO SCH (23:14)
[2022-01-31] MEDS: QUEtiapine FUMARATE 400 MG TABLET PO SCH (23:14)
[2022-02-01] MEDS: PANTOPRAZOLE 40 MG TABLET PO SCH (06:06)
[2022-02-01] MEDS: hydrOXYzine PAMOATE 25 MG CAPSULE (FP) PO SCH ×5 (06:07→21:51)
[2022-02-01] MEDS: SERTRALINE HCL 50 MG TABLET (FP) PO SCH (10:16)
[2022-02-01] MEDS: EMTRICITABINE/TENOFOV ALAFENAM (DESCOVY) TABLET PO SCH (10:16)
[2022-02-01] MEDS: PRENATAL VITAMINS W/ FOLIC ACID TABLET (FP) PO SCH (10:16)
[2022-02-01] MEDS: NICOTINE 7 MG/24 HOURS TOPICAL PATCH TD SCH (10:16)
[2022-02-01] MEDS: ERGOCALCIFEROL (VIT D2) 50,000 UNIT (1.25 MG) CAPSULE PO SCH (11:55)
[2022-02-01] MEDS: ACETAMINOPHEN 325 MG TABLET (FP) PO PRN (13:50)
[2022-02-01] MEDS: THIAMINE HCL 100 MG TABLET (FP) PO SCH (21:51)
[2022-02-01] MEDS: QUEtiapine FUMARATE 400 MG TABLET PO SCH (21:51)
[2022-02-01] MEDS: MELATONIN 5 MG TABLETS PO SCH (21:51)
[2022-02-02] MEDS: PANTOPRAZOLE 40 MG TABLET PO SCH (06:03)
[2022-02-02] MEDS: hydrOXYzine PAMOATE 25 MG CAPSULE (FP) PO SCH ×5 (06:04→22:09)
[2022-02-02] MEDS: EMTRICITABINE/TENOFOV ALAFENAM (DESCOVY) TABLET PO SCH (09:56)
[2022-02-02] MEDS: PRENATAL VITAMINS W/ FOLIC ACID TABLET (FP) PO SCH (09:56)
[2022-02-02] MEDS: SERTRALINE HCL 50 MG TABLET (FP) PO SCH (09:56)
[2022-02-02] MEDS: NICOTINE 7 MG/24 HOURS TOPICAL PATCH TD SCH (09:57)
[2022-02-02] MEDS: ACETAMINOPHEN 325 MG TABLET (FP) PO PRN (13:35)
[2022-02-02] MEDS: QUEtiapine FUMARATE 400 MG TABLET PO SCH (22:09)
[2022-02-02] MEDS: THIAMINE HCL 100 MG TABLET (FP) PO SCH (22:09)
[2022-02-02] MEDS: MELATONIN 5 MG TABLETS PO SCH (22:09)
[2022-02-03] MEDS: hydrOXYzine PAMOATE 25 MG CAPSULE (FP) PO SCH ×5 (06:24→23:29)
[2022-02-03] MEDS: PANTOPRAZOLE 40 MG TABLET PO SCH (06:24)
[2022-02-03] MEDS: SERTRALINE HCL 50 MG TABLET (FP) PO SCH (09:49)
[2022-02-03] MEDS: EMTRICITABINE/TENOFOV ALAFENAM (DESCOVY) TABLET PO SCH (09:49)
[2022-02-03] MEDS: PRENATAL VITAMINS W/ FOLIC ACID TABLET (FP) PO SCH (09:49)
[2022-02-03] MEDS: NICOTINE 7 MG/24 HOURS TOPICAL PATCH TD SCH (09:50)
[2022-02-03] MEDS: ACETAMINOPHEN 325 MG TABLET (FP) PO PRN (09:50)
[2022-02-03] MEDS: THIAMINE HCL 100 MG TABLET (FP) PO SCH (23:29)
[2022-02-03] MEDS: MELATONIN 5 MG TABLETS PO SCH (23:29)
[2022-02-03] MEDS: QUEtiapine FUMARATE 400 MG TABLET PO SCH (23:29)
[2022-02-04] MEDS: ACETAMINOPHEN 325 MG TABLET (FP) PO PRN (06:39)
[2022-02-04] MEDS: PANTOPRAZOLE 40 MG TABLET PO SCH (06:39)
[2022-02-04] MEDS: hydrOXYzine PAMOATE 25 MG CAPSULE (FP) PO SCH ×5 (06:39→21:55)
[2022-02-04] MEDS: NICOTINE 7 MG/24 HOURS TOPICAL PATCH TD SCH (10:18)
[2022-02-04] MEDS: SERTRALINE HCL 50 MG TABLET (FP) PO SCH (10:18)
[2022-02-04] MEDS: PRENATAL VITAMINS W/ FOLIC ACID TABLET (FP) PO SCH (10:18)
[2022-02-04] MEDS: EMTRICITABINE/TENOFOV ALAFENAM (DESCOVY) TABLET PO SCH (10:18)
[2022-02-04] MEDS: IBUPROFEN 400 MG TABLET (FP) PO PRN (10:19)
[2022-02-04] MEDS: QUEtiapine FUMARATE 400 MG TABLET PO SCH (21:54)
[2022-02-04] MEDS: MELATONIN 5 MG TABLETS PO SCH (21:54)
[2022-02-04] MEDS: THIAMINE HCL 100 MG TABLET (FP) PO SCH (21:55)
[2022-02-05] MEDS: PANTOPRAZOLE 40 MG TABLET PO SCH (06:13)
[2022-02-05] MEDS: hydrOXYzine PAMOATE 25 MG CAPSULE (FP) PO SCH ×2 (06:13→09:52)
[2022-02-05] MEDS: PRENATAL VITAMINS W/ FOLIC ACID TABLET (FP) PO SCH (09:51)
[2022-02-05] MEDS: SERTRALINE HCL 50 MG TABLET (FP) PO SCH (09:51)
[2022-02-05] MEDS: NICOTINE 7 MG/24 HOURS TOPICAL PATCH TD SCH (09:52)
[2022-02-05] MEDS: EMTRICITABINE/TENOFOV ALAFENAM (DESCOVY) TABLET PO SCH (10:48)
[2022-02-05] MEDS ORDERED: hydrOXYzine PAMOATE 25 MG CAPSULE (FP) PO PRN (11:17)
[2022-02-05] MEDS: MELATONIN 5 MG TABLETS PO SCH (22:56)
[2022-02-05] MEDS: THIAMINE HCL 100 MG TABLET (FP) PO SCH (22:56)
[2022-02-05] MEDS: QUEtiapine FUMARATE 400 MG TABLET PO SCH (22:56)
[2022-02-06] MEDS: PANTOPRAZOLE 40 MG TABLET PO SCH (06:05)
[2022-02-06] MEDS: EMTRICITABINE/TENOFOV ALAFENAM (DESCOVY) TABLET PO SCH (09:53)
[2022-02-06] MEDS: SERTRALINE HCL 50 MG TABLET (FP) PO SCH (09:53)
[2022-02-06] MEDS: PRENATAL VITAMINS W/ FOLIC ACID TABLET (FP) PO SCH (09:54)
[2022-02-06] MEDS: NICOTINE 7 MG/24 HOURS TOPICAL PATCH TD SCH (09:54)
[2022-02-06] MEDS: THIAMINE HCL 100 MG TABLET (FP) PO SCH (23:16)
[2022-02-06] MEDS: QUEtiapine FUMARATE 400 MG TABLET PO SCH (23:16)
[2022-02-06] MEDS: MELATONIN 5 MG TABLETS PO SCH (23:16)
[2022-02-07] MEDS: PANTOPRAZOLE 40 MG TABLET PO SCH (06:45)
[2022-02-07] MEDS: PRENATAL VITAMINS W/ FOLIC ACID TABLET (FP) PO SCH (10:11)
[2022-02-07] MEDS: SERTRALINE HCL 50 MG TABLET (FP) PO SCH (10:11)
[2022-02-07] MEDS: NICOTINE 7 MG/24 HOURS TOPICAL PATCH TD SCH (10:12)
[2022-02-07] MEDS: EMTRICITABINE/TENOFOV ALAFENAM (DESCOVY) TABLET PO SCH (10:12)
[2022-02-07] MEDS: MELATONIN 5 MG TABLETS PO SCH (23:46)
[2022-02-07] MEDS: THIAMINE HCL 100 MG TABLET (FP) PO SCH (23:47)
[2022-02-07] MEDS: QUEtiapine FUMARATE 400 MG TABLET PO SCH (23:47)
[2022-02-08] MEDS: PANTOPRAZOLE 40 MG TABLET PO SCH (05:54)
[2022-02-08] MEDS: EMTRICITABINE/TENOFOV ALAFENAM (DESCOVY) TABLET PO SCH (10:22)
[2022-02-08] MEDS: NICOTINE 7 MG/24 HOURS TOPICAL PATCH TD SCH (10:22)
[2022-02-08] MEDS: PRENATAL VITAMINS W/ FOLIC ACID TABLET (FP) PO SCH (10:23)
[2022-02-08] MEDS: ERGOCALCIFEROL (VIT D2) 50,000 UNIT (1.25 MG) CAPSULE PO SCH (10:23)
[2022-02-08] MEDS: SERTRALINE HCL 50 MG TABLET (FP) PO SCH (10:23)
[2022-02-08] MEDS: ACETAMINOPHEN 325 MG TABLET (FP) PO PRN (10:24)
[2022-02-08] MEDS: THIAMINE HCL 100 MG TABLET (FP) PO SCH (21:31)
[2022-02-08] MEDS: MELATONIN 5 MG TABLETS PO SCH (21:31)
[2022-02-08] MEDS: QUEtiapine FUMARATE 400 MG TABLET PO SCH (21:31)
[2022-02-09] MEDS: PANTOPRAZOLE 40 MG TABLET PO SCH (06:32)
[2022-02-09] MEDS: NICOTINE 7 MG/24 HOURS TOPICAL PATCH TD SCH (10:31)
[2022-02-09] MEDS: EMTRICITABINE/TENOFOV ALAFENAM (DESCOVY) TABLET PO SCH (10:31)
[2022-02-09] MEDS: SERTRALINE HCL 50 MG TABLET (FP) PO SCH (10:32)
[2022-02-09] MEDS: PRENATAL VITAMINS W/ FOLIC ACID TABLET (FP) PO SCH (10:32)
[2022-02-09] MEDS: MELATONIN 5 MG TABLETS PO SCH (22:23)
[2022-02-09] MEDS: THIAMINE HCL 100 MG TABLET (FP) PO SCH (22:23)
[2022-02-09] MEDS: QUEtiapine FUMARATE 200 MG TABLET PO SCH (22:23)
[2022-02-10] MEDS: ACETAMINOPHEN 325 MG TABLET (FP) PO PRN (06:16)
[2022-02-10] MEDS: PANTOPRAZOLE 40 MG TABLET PO SCH (06:16)
[2022-02-10] MEDS: SERTRALINE HCL 50 MG TABLET (FP) PO SCH (09:42)
[2022-02-10] MEDS: NICOTINE 7 MG/24 HOURS TOPICAL PATCH TD SCH (09:42)
[2022-02-10] MEDS: PRENATAL VITAMINS W/ FOLIC ACID TABLET (FP) PO SCH (09:42)
[2022-02-10] MEDS: IBUPROFEN 400 MG TABLET (FP) PO PRN (09:43)
[2022-02-10] MEDS: EMTRICITABINE/TENOFOV ALAFENAM (DESCOVY) TABLET PO SCH (09:43)
[2022-02-10] MEDS: THIAMINE HCL 100 MG TABLET (FP) PO SCH (23:30)
[2022-02-10] MEDS: QUEtiapine FUMARATE 200 MG TABLET PO SCH (23:30)
[2022-02-10] MEDS: MELATONIN 5 MG TABLETS PO SCH (23:30)
[2022-02-11] MEDS: PANTOPRAZOLE 40 MG TABLET PO SCH (05:59)
[2022-02-11] MEDS: ACETAMINOPHEN 325 MG TABLET (FP) PO PRN (05:59)
[2022-02-11] MEDS: EMTRICITABINE/TENOFOV ALAFENAM (DESCOVY) TABLET PO SCH (09:42)
[2022-02-11] MEDS: SERTRALINE HCL 50 MG TABLET (FP) PO SCH (09:42)
[2022-02-11] MEDS: NICOTINE 7 MG/24 HOURS TOPICAL PATCH TD SCH (09:42)
[2022-02-11] MEDS: PRENATAL VITAMINS W/ FOLIC ACID TABLET (FP) PO SCH (09:42)
[2022-02-11] MEDS: IBUPROFEN 400 MG TABLET (FP) PO PRN (09:43)
[2022-02-11] MEDS: QUEtiapine FUMARATE 200 MG TABLET PO SCH (23:12)
[2022-02-11] MEDS: THIAMINE HCL 100 MG TABLET (FP) PO SCH (23:12)
[2022-02-11] MEDS: MELATONIN 5 MG TABLETS PO SCH (23:12)
[2022-02-12] MEDS: PANTOPRAZOLE 40 MG TABLET PO SCH (06:21)
[2022-02-12] MEDS: NICOTINE 7 MG/24 HOURS TOPICAL PATCH TD SCH (09:33)
[2022-02-12] MEDS: SERTRALINE HCL 50 MG TABLET (FP) PO SCH (09:33)
[2022-02-12] MEDS: PRENATAL VITAMINS W/ FOLIC ACID TABLET (FP) PO SCH (09:33)
[2022-02-12] MEDS: EMTRICITABINE/TENOFOV ALAFENAM (DESCOVY) TABLET PO SCH (09:33)
[2022-02-12] MEDS: MELATONIN 5 MG TABLETS PO SCH (22:27)
[2022-02-12] MEDS: THIAMINE HCL 100 MG TABLET (FP) PO SCH (22:28)
[2022-02-12] MEDS: QUEtiapine FUMARATE 200 MG TABLET PO SCH (22:28)
[2022-02-13] MEDS: PANTOPRAZOLE 40 MG TABLET PO SCH (05:55)
[2022-02-13] MEDS: NICOTINE 7 MG/24 HOURS TOPICAL PATCH TD SCH (10:37)
[2022-02-13] MEDS: PRENATAL VITAMINS W/ FOLIC ACID TABLET (FP) PO SCH (10:37)
[2022-02-13] MEDS: EMTRICITABINE/TENOFOV ALAFENAM (DESCOVY) TABLET PO SCH (10:37)
[2022-02-13] MEDS: SERTRALINE HCL 50 MG TABLET (FP) PO SCH (10:37)
[2022-02-13] MEDS: MELATONIN 5 MG TABLETS PO SCH (21:47)
[2022-02-13] MEDS: THIAMINE HCL 100 MG TABLET (FP) PO SCH (21:47)
[2022-02-13] MEDS: QUEtiapine FUMARATE 200 MG TABLET PO SCH (21:48)
[2022-02-14] MEDS: PANTOPRAZOLE 40 MG TABLET PO SCH (05:18)
[2022-02-14] MEDS: SERTRALINE HCL 50 MG TABLET (FP) PO SCH (09:46)
[2022-02-14] MEDS: PRENATAL VITAMINS W/ FOLIC ACID TABLET (FP) PO SCH (09:46)
[2022-02-14] MEDS: NICOTINE 7 MG/24 HOURS TOPICAL PATCH TD SCH (09:47)
[2022-02-14] MEDS: EMTRICITABINE/TENOFOV ALAFENAM (DESCOVY) TABLET PO SCH (09:48)
[2022-02-14] MEDS: MELATONIN 5 MG TABLETS PO SCH (21:40)
[2022-02-14] MEDS: QUEtiapine FUMARATE 200 MG TABLET PO SCH (21:40)
[2022-02-14] MEDS: THIAMINE HCL 100 MG TABLET (FP) PO SCH (21:40)
[2022-02-15] MEDS: PANTOPRAZOLE 40 MG TABLET PO SCH (06:01)
[2022-02-15] MEDS: EMTRICITABINE/TENOFOV ALAFENAM (DESCOVY) TABLET PO SCH (10:02)
[2022-02-15] MEDS: ERGOCALCIFEROL (VIT D2) 50,000 UNIT (1.25 MG) CAPSULE PO SCH (10:02)
[2022-02-15] MEDS: NICOTINE 7 MG/24 HOURS TOPICAL PATCH TD SCH (10:03)
[2022-02-15] MEDS: PRENATAL VITAMINS W/ FOLIC ACID TABLET (FP) PO SCH (10:03)
[2022-02-15] MEDS: SERTRALINE HCL 50 MG TABLET (FP) PO SCH (10:03)
[2022-02-15] MEDS: MELATONIN 5 MG TABLETS PO SCH (22:43)
[2022-02-15] MEDS: THIAMINE HCL 100 MG TABLET (FP) PO SCH (22:43)
[2022-02-15] MEDS: QUEtiapine FUMARATE 200 MG TABLET PO SCH (22:43)
[2022-02-16] MEDS: PANTOPRAZOLE 40 MG TABLET PO SCH (06:09)
[2022-02-16] MEDS: IBUPROFEN 400 MG TABLET (FP) PO PRN (09:37)
[2022-02-16] MEDS: SERTRALINE HCL 50 MG TABLET (FP) PO SCH (09:37)
[2022-02-16] MEDS: EMTRICITABINE/TENOFOV ALAFENAM (DESCOVY) TABLET PO SCH (09:37)
[2022-02-16] MEDS: PRENATAL VITAMINS W/ FOLIC ACID TABLET (FP) PO SCH (09:37)
[2022-02-16] MEDS: NICOTINE 7 MG/24 HOURS TOPICAL PATCH TD SCH (09:38)
[2022-02-16] MEDS: MELATONIN 5 MG TABLETS PO SCH (23:12)
[2022-02-16] MEDS: QUEtiapine FUMARATE 200 MG TABLET PO SCH (23:13)
[2022-02-16] MEDS: THIAMINE HCL 100 MG TABLET (FP) PO SCH (23:13)
[2022-02-17] MEDS: PANTOPRAZOLE 40 MG TABLET PO SCH (05:56)
[2022-02-17] MEDS: EMTRICITABINE/TENOFOV ALAFENAM (DESCOVY) TABLET PO SCH (09:58)
[2022-02-17] MEDS: SERTRALINE HCL 50 MG TABLET (FP) PO SCH (09:58)
[2022-02-17] MEDS: PRENATAL VITAMINS W/ FOLIC ACID TABLET (FP) PO SCH (09:58)
[2022-02-17] MEDS: IBUPROFEN 400 MG TABLET (FP) PO PRN (09:59)
[2022-02-17] MEDS: NICOTINE 7 MG/24 HOURS TOPICAL PATCH TD SCH (09:59)
[2022-02-17] MEDS: THIAMINE HCL 100 MG TABLET (FP) PO SCH (23:00)
[2022-02-17] MEDS: MELATONIN 5 MG TABLETS PO SCH (23:00)
[2022-02-17] MEDS: QUEtiapine FUMARATE 200 MG TABLET PO SCH (23:00)
[2022-02-18] MEDS: PANTOPRAZOLE 40 MG TABLET PO SCH (06:00)
[2022-02-18] MEDS: PRENATAL VITAMINS W/ FOLIC ACID TABLET (FP) PO SCH (10:31)
[2022-02-18] MEDS: NICOTINE 7 MG/24 HOURS TOPICAL PATCH TD SCH (10:32)
[2022-02-18] MEDS: EMTRICITABINE/TENOFOV ALAFENAM (DESCOVY) TABLET PO SCH (10:32)
[2022-02-18] MEDS: SERTRALINE HCL 50 MG TABLET (FP) PO SCH (10:32)
[2022-02-18] MEDS: QUEtiapine FUMARATE 200 MG TABLET PO SCH (22:32)
[2022-02-18] MEDS: MELATONIN 5 MG TABLETS PO SCH (22:32)
[2022-02-18] MEDS: THIAMINE HCL 100 MG TABLET (FP) PO SCH (22:32)
[2022-02-19] MEDS: PANTOPRAZOLE 40 MG TABLET PO SCH (05:51)
[2022-02-19] MEDS: PRENATAL VITAMINS W/ FOLIC ACID TABLET (FP) PO SCH (09:28)
[2022-02-19] MEDS: NICOTINE 7 MG/24 HOURS TOPICAL PATCH TD SCH (09:28)
[2022-02-19] MEDS: EMTRICITABINE/TENOFOV ALAFENAM (DESCOVY) TABLET PO SCH (09:28)
[2022-02-19] MEDS: SERTRALINE HCL 50 MG TABLET (FP) PO SCH (09:28)
[2022-02-19] MEDS: IBUPROFEN 400 MG TABLET (FP) PO PRN (09:29)
[2022-02-19] MEDS: MELATONIN 5 MG TABLETS PO SCH (21:47)
[2022-02-19] MEDS: THIAMINE HCL 100 MG TABLET (FP) PO SCH (21:48)
[2022-02-19] MEDS: QUEtiapine FUMARATE 200 MG TABLET PO SCH (21:48)
[2022-02-20] MEDS: PANTOPRAZOLE 40 MG TABLET PO SCH (05:44)
[2022-02-20 07:05] VITALS: BP 113/56; PULSE 65; TEMP 97.9
[2022-02-20] MEDS: IBUPROFEN 400 MG TABLET (FP) PO PRN (08:40)
[2022-02-20] MEDS: EMTRICITABINE/TENOFOV ALAFENAM (DESCOVY) TABLET PO SCH (09:39)
[2022-02-20] MEDS: SERTRALINE HCL 50 MG TABLET (FP) PO SCH (09:40)
[2022-02-20] MEDS: NICOTINE 7 MG/24 HOURS TOPICAL PATCH TD SCH (09:40)
[2022-02-20] MEDS: PRENATAL VITAMINS W/ FOLIC ACID TABLET (FP) PO SCH (09:40)
== END 2022-02-20 15:55 | disposition home or self-care (01) | DRG 772 ==
LOC: YASAS 12:34 → Y3W 12:35
PROVIDERS: ADMIT Allergy & Immunology; ATTEND Allergy & Immunology
PROC: HZ42ZZZ Group Counseling for Substance Abuse Treatment, Cognitive-Behavioral (ICD-10-PCS; principal; 2022-01-27)
DX: F10.20 Alcohol dependence, uncomplicated (principal); F17.210 Nicotine dependence, cigarettes, uncomplicated; F31.9 Bipolar disorder, unspecified; F25.9 Schizoaffective disorder, unspecified; F43.10 Post-traumatic stress disorder, unspecified; K21.9 Gastro-esophageal reflux disease without esophagitis; M19.90 Unspecified osteoarthritis, unspecified site; M54.50 Low back pain, unspecified; G89.29 Other chronic pain
CPT/HCPCS: 36415; 87389; Q0162

== ENCOUNTER 2023-08-22 14:51 | Inpatient (IN) | payer OTHER ==
[2023-08-22 15:40] VITALS: BMI 39.1
[2023-08-22] MEDS ORDERED: NALOXONE HCL (KLOXXADO) 8 MG SPRAY NS PRN (16:14)
[2023-08-22] MEDS ORDERED: hydrOXYzine PAMOATE 25 MG CAPSULE (FP) PO PRN (16:14)
[2023-08-22] MEDS ORDERED: BISMUTH SUBSALICYLATE 524 MG/30 ML PO PRN (16:14)
[2023-08-22] MEDS ORDERED: IBUPROFEN 600 MG TABLET (FP) PO PRN (16:14)
[2023-08-22] MEDS ORDERED: POLYETHYLENE GLYCOL (HEALTHYLAX) 3350 17 GM PACKET PO PRN (16:14)
[2023-08-22] MEDS ORDERED: NALOXONE HCL 0.4 MG/ML VIAL IM PRN (16:14)
[2023-08-22] MEDS ORDERED: METHOCARBAMOL 500 MG TABLET PO PRN (16:14)
[2023-08-22] MEDS ORDERED: MAG HYDROX/AL HYDROX/SIMETH 30 ML UNIT-DOSE CUP PO PRN (16:14)
[2023-08-22] MEDS ORDERED: BENZOCAINE/MENTHOL (CHLORASEPTIC ) LOZENGE MM PRN (16:14)
[2023-08-22] MEDS ORDERED: BENZONATATE 200 MG CAPSULE PO PRN (16:14)
[2023-08-22] MEDS ORDERED: DICYCLOMINE HCL 10 MG CAPSULE PO PRN (16:14)
[2023-08-22] MEDS ORDERED: IBUPROFEN 400 MG TABLET (FP) PO PRN (16:14)
[2023-08-22] MEDS ORDERED: guaiFENesin 600 MG TABLET.ER (FP) PO PRN (16:14)
[2023-08-22] MEDS ORDERED: chlordiazePOXIDE HCL 25 MG CAPSULE PO PRN (16:14)
[2023-08-22] MEDS ORDERED: ONDANSETRON *ODT* 4 MG TABLET SL PRN (16:14)
[2023-08-22] MEDS ORDERED: MAGNESIUM HYDROX 2400MG/30ML ORAL SUSPENSION 30 ML CUP PO PRN (16:14)
[2023-08-22] MEDS ORDERED: LOPERAMIDE HCL 2 MG CAPSULE PO PRN (16:14)
[2023-08-22] MEDS ORDERED: PANTOPRAZOLE 40 MG TABLET PO SCH (16:30)
[2023-08-22] MEDS ORDERED: IBUPROFEN 400 MG TABLET (FP) PO ONE (19:57)
[2023-08-22] MEDS: NICOTINE 14 MG/24 HOURS TOPICAL PATCH TD SCH (20:26)
[2023-08-22] MEDS: PRENATAL VITAMINS W/ FOLIC ACID TABLET (FP) PO SCH (20:26)
[2023-08-22] MEDS ORDERED: ERGOCALCIFEROL (VIT D2) 50,000 UNIT (1.25 MG) CAPSULE PO SCH (22:00)
[2023-08-22] MEDS: THIAMINE HCL 100 MG TABLET (FP) PO SCH (22:15)
[2023-08-22] MEDS: MELATONIN 5 MG TABLETS PO SCH (22:15)
[2023-08-22] MEDS: PANTOPRAZOLE 40 MG TABLET PO SCH (22:16)
[2023-08-22] MEDS: chlordiazePOXIDE HCL 25 MG CAPSULE PO SCH (22:17)
[2023-08-23] MEDS: chlordiazePOXIDE HCL 25 MG CAPSULE PO SCH ×4 (05:46→23:01)
[2023-08-23] MEDS: PANTOPRAZOLE 40 MG TABLET PO SCH (10:22)
[2023-08-23] MEDS: PRENATAL VITAMINS W/ FOLIC ACID TABLET (FP) PO SCH (10:22)
[2023-08-23] MEDS: NICOTINE 14 MG/24 HOURS TOPICAL PATCH TD SCH (10:24)
[2023-08-23 10:45] LABS: HEMATOCRIT 41.6 % (35.4-49); HEMOGLOBIN 13.9 GM/dL (11.7-16.9); MCH 31.7 pg (25.7-33.7); MCHC 33.3 g/dl (32.0-35.9); MEAN CELL VOLUME 95.1 fl (80-96); MEAN PLT VOLUME 10.2 fl (7.5-11.1); PLATELET COUNT 201 10^3/uL (134-434); RBC 4.38 M/mm3 (4.00-5.60); RDW 13.2 % (11.9-15.9); WHITE BLOOD COUNT 6.1 K/mm3 (4.0-10.0)
[2023-08-23 10:47] LABS: CALCIUM 8.5 mg/dL (8.5-10.1)
[2023-08-23 10:48] LABS: ALBUMIN 3.2 g/dl (3.4-5.0); BLOOD UREA NITROGEN 12.6 mg/dL (7-18)
[2023-08-23 10:49] LABS: CREATININE 0.8 mg/dL (0.55-1.3)
[2023-08-23 10:50] LABS: BILIRUBIN,TOTAL 0.3 mg/dL (0.2-1); TOT PROT 6.3 g/dl (6.4-8.2)
[2023-08-23] MEDS: EMTRICITABINE/TENOFOV ALAFENAM (DESCOVY) TABLET PO SCH (12:33)
[2023-08-23] MEDS ORDERED: QUEtiapine FUMARATE 50 MG TABLET PO PRN (22:00)
[2023-08-23] MEDS: MELATONIN 5 MG TABLETS PO SCH (23:01)
[2023-08-23] MEDS: THIAMINE HCL 100 MG TABLET (FP) PO SCH (23:01)
[2023-08-24] MEDS: chlordiazePOXIDE HCL 25 MG CAPSULE PO SCH ×4 (05:32→22:25)
[2023-08-24] MEDS: PRENATAL VITAMINS W/ FOLIC ACID TABLET (FP) PO SCH (10:26)
[2023-08-24] MEDS: EMTRICITABINE/TENOFOV ALAFENAM (DESCOVY) TABLET PO SCH (10:26)
[2023-08-24] MEDS: NICOTINE 14 MG/24 HOURS TOPICAL PATCH TD SCH (10:27)
[2023-08-24] MEDS: PANTOPRAZOLE 40 MG TABLET PO SCH (10:27)
[2023-08-24] MEDS: ACETAMINOPHEN 325 MG TABLET (FP) PO PRN (10:28)
[2023-08-24] MEDS: THIAMINE HCL 100 MG TABLET (FP) PO SCH (22:25)
[2023-08-24] MEDS: MELATONIN 5 MG TABLETS PO SCH (22:25)
[2023-08-25] MEDS ORDERED: chlordiazePOXIDE HCL 10 MG CAPSULE PO PRN
[2023-08-25] MEDS: chlordiazePOXIDE HCL 10 MG CAPSULE PO SCH ×4 (04:49→22:41)
[2023-08-25] MEDS: ACETAMINOPHEN 325 MG TABLET (FP) PO PRN ×2 (04:50→09:39)
[2023-08-25] MEDS: NICOTINE 14 MG/24 HOURS TOPICAL PATCH TD SCH (09:38)
[2023-08-25] MEDS: PANTOPRAZOLE 40 MG TABLET PO SCH (09:38)
[2023-08-25] MEDS: PRENATAL VITAMINS W/ FOLIC ACID TABLET (FP) PO SCH (09:38)
[2023-08-25] MEDS: EMTRICITABINE/TENOFOV ALAFENAM (DESCOVY) TABLET PO SCH (09:38)
[2023-08-25] MEDS: MELATONIN 5 MG TABLETS PO SCH (22:40)
[2023-08-25] MEDS: THIAMINE HCL 100 MG TABLET (FP) PO SCH (22:41)
[2023-08-26] MEDS: chlordiazePOXIDE HCL 10 MG CAPSULE PO SCH ×2 (05:46→17:34)
[2023-08-26] MEDS: PANTOPRAZOLE 40 MG TABLET PO SCH (09:44)
[2023-08-26] MEDS: NICOTINE 14 MG/24 HOURS TOPICAL PATCH TD SCH (09:44)
[2023-08-26] MEDS: PRENATAL VITAMINS W/ FOLIC ACID TABLET (FP) PO SCH (09:44)
[2023-08-26] MEDS: EMTRICITABINE/TENOFOV ALAFENAM (DESCOVY) TABLET PO SCH (09:44)
[2023-08-26] MEDS: MELATONIN 5 MG TABLETS PO SCH (22:55)
[2023-08-26] MEDS: THIAMINE HCL 100 MG TABLET (FP) PO SCH (22:55)
[2023-08-27] MEDS ORDERED: chlordiazePOXIDE HCL 10 MG CAPSULE PO ONE (05:00)
[2023-08-27 05:47] VITALS: RESP 18
[2023-08-27 09:05] VITALS: BP 121/71; PULSE 74; TEMP 97.7
[2023-08-27] MEDS: NICOTINE 14 MG/24 HOURS TOPICAL PATCH TD SCH (09:41)
[2023-08-27] MEDS: EMTRICITABINE/TENOFOV ALAFENAM (DESCOVY) TABLET PO SCH (09:41)
[2023-08-27] MEDS: PANTOPRAZOLE 40 MG TABLET PO SCH (09:42)
[2023-08-27] MEDS: PRENATAL VITAMINS W/ FOLIC ACID TABLET (FP) PO SCH (09:42)
== END 2023-08-27 11:09 | disposition other institution (70) | DRG 774 ==
LOC: YASAS 14:51 → Y3N 19:28
PROVIDERS: ADMIT Allergy & Immunology; ATTEND Surgery
PROC: HZ2ZZZZ Detoxification Services for Substance Abuse Treatment (ICD-10-PCS; principal; 2023-08-22)
DX: F10.230 Alcohol dependence with withdrawal, uncomplicated (principal); F14.20 Cocaine dependence, uncomplicated; F17.210 Nicotine dependence, cigarettes, uncomplicated; F25.9 Schizoaffective disorder, unspecified; Z21 Asymptomatic human immunodeficiency virus [HIV] infection status; K21.9 Gastro-esophageal reflux disease without esophagitis; M54.50 Low back pain, unspecified; G89.29 Other chronic pain; Z62.810 Personal history of physical and sexual abuse in childhood; E66.9 Obesity, unspecified; Z68.39 Body mass index [BMI] 39.0-39.9, adult; Z88.2 Allergy status to sulfonamides; Z59.01 Sheltered homelessness
CPT/HCPCS: 36415; 80053; 85027; 86780; 87635

== ENCOUNTER 2023-10-30 10:17 | Inpatient (IN) | payer OTHER ==
[2023-10-30 10:37] VITALS: BMI 40.4
[2023-10-30] MEDS ORDERED: MAG HYDROX/AL HYDROX/SIMETH 30 ML UNIT-DOSE CUP PO PRN (11:25)
[2023-10-30] MEDS ORDERED: DICYCLOMINE HCL 10 MG CAPSULE PO PRN (11:25)
[2023-10-30] MEDS ORDERED: BENZOCAINE/MENTHOL (CHLORASEPTIC ) LOZENGE MM PRN (11:25)
[2023-10-30] MEDS ORDERED: LOPERAMIDE HCL 2 MG CAPSULE PO PRN (11:25)
[2023-10-30] MEDS ORDERED: NALOXONE HCL (KLOXXADO) 8 MG SPRAY NS PRN (11:25)
[2023-10-30] MEDS ORDERED: NICOTINE POLACRILEX 2 MG GUM BUC PRN (11:25)
[2023-10-30] MEDS ORDERED: IBUPROFEN 400 MG TABLET (FP) PO PRN (11:25)
[2023-10-30] MEDS ORDERED: BISMUTH SUBSALICYLATE 262 MG/15 ML BTL PO PRN (11:25)
[2023-10-30] MEDS ORDERED: ACETAMINOPHEN 325 MG TABLET (FP) PO PRN (11:25)
[2023-10-30] MEDS ORDERED: IBUPROFEN 600 MG TABLET (FP) PO PRN (11:25)
[2023-10-30] MEDS ORDERED: POLYETHYLENE GLYCOL (HEALTHYLAX) 3350 17 GM PACKET PO PRN (11:25)
[2023-10-30] MEDS ORDERED: MAGNESIUM HYDROX 2400MG/30ML ORAL SUSPENSION 30 ML CUP PO PRN (11:25)
[2023-10-30] MEDS ORDERED: ONDANSETRON *ODT* 4 MG TABLET SL PRN (11:25)
[2023-10-30] MEDS ORDERED: NALOXONE HCL 0.4 MG/ML VIAL IM PRN (11:25)
[2023-10-30] MEDS: guaiFENesin 600 MG TABLET.ER (FP) PO PRN (17:34)
[2023-10-30] MEDS: MELATONIN 5 MG TABLETS PO SCH (22:14)
[2023-10-30] MEDS: THIAMINE HCL 100 MG TABLET (FP) PO SCH (22:15)
[2023-10-31] MEDS: guaiFENesin 600 MG TABLET.ER (FP) PO PRN ×2 (05:49→22:16)
[2023-10-31] MEDS ORDERED: chlordiazePOXIDE HCL 25 MG CAPSULE PO PRN (08:46)
[2023-10-31] MEDS: PRENATAL VITAMINS W/ FOLIC ACID TABLET (FP) PO SCH (10:25)
[2023-10-31] MEDS: chlordiazePOXIDE HCL 25 MG CAPSULE PO SCH ×3 (10:25→22:16)
[2023-10-31] MEDS: NICOTINE 14 MG/24 HOURS TOPICAL PATCH TD SCH (10:26)
[2023-10-31 11:05] LABS: HEMATOCRIT 43.3 % (35.4-49); HEMOGLOBIN 14.4 GM/dL (11.7-16.9); MCH 30.8 pg (25.7-33.7); MCHC 33.4 g/dl (32.0-35.9); MEAN CELL VOLUME 92.2 fl (80-96); MEAN PLT VOLUME 10.3 fl (7.5-11.1); PLATELET COUNT 229 10^3/uL (134-434); RBC 4.69 M/mm3 (4.00-5.60); RDW 13.1 % (11.9-15.9); WHITE BLOOD COUNT 4.8 K/mm3 (4.0-10.0)
[2023-10-31 11:12] LABS: CHLORIDE 108 mmol/L (98-107); POTASSIUM 4.1 mmol/L (3.5-5.1); SODIUM 140 mmol/L (136-145)
[2023-10-31 11:17] LABS: CALCIUM 8.9 mg/dL (8.5-10.1)
[2023-10-31 11:18] LABS: ALBUMIN 3.5 g/dl (3.4-5.0); ANION GAP 7 mmol/L (4-13); BLOOD UREA NITROGEN 11.8 mg/dL (7-18); CO2 26 mmol/L (21-32); GLUCOSE,RANDOM 102 mg/dL (74-106)
[2023-10-31 11:19] LABS: SGPT/ALT 17 U/L (13-61)
[2023-10-31 11:21] LABS: CREATININE 1.1 mg/dL (0.55-1.3); SGOT/AST 14 U/L (15-37)
[2023-10-31 11:22] LABS: TOT PROT 6.6 g/dl (6.4-8.2)
[2023-10-31 11:23] LABS: ALK PHOS 79 U/L (45-117); BILIRUBIN,TOTAL 0.4 mg/dL (0.2-1)
[2023-10-31] MEDS: BENZONATATE 200 MG CAPSULE PO PRN (17:01)
[2023-10-31] MEDS: MELATONIN 5 MG TABLETS PO SCH (22:16)
[2023-10-31] MEDS: THIAMINE HCL 100 MG TABLET (FP) PO SCH (22:16)
[2023-11-01] MEDS: chlordiazePOXIDE HCL 25 MG CAPSULE PO SCH ×3 (05:59→17:28)
[2023-11-01] MEDS: guaiFENesin 600 MG TABLET.ER (FP) PO PRN ×2 (06:01→17:29)
[2023-11-01] MEDS: PRENATAL VITAMINS W/ FOLIC ACID TABLET (FP) PO SCH (10:18)
[2023-11-01] MEDS: NICOTINE 14 MG/24 HOURS TOPICAL PATCH TD SCH (10:18)
[2023-11-01] MEDS ORDERED: guaiFENesin/D-METHORPHAN HB 10 ML UNIT-DOSE CUPS PO PRN (12:04)
[2023-11-01] MEDS ORDERED: guaiFENesin 200 MG/10 ML 10 ML UNIT-DOSE CUPS PO PRN (13:04)
[2023-11-01 17:28] VITALS: BP 126/68; PULSE 85; RESP 18; TEMP 97.6
[2023-11-01] MEDS: BENZONATATE 200 MG CAPSULE PO PRN (17:29)
[2023-11-02] MEDS ORDERED: chlordiazePOXIDE HCL 25 MG CAPSULE PO SCH (05:00)
[2023-11-03] MEDS ORDERED: chlordiazePOXIDE HCL 10 MG CAPSULE PO PRN
[2023-11-03] MEDS ORDERED: chlordiazePOXIDE HCL 10 MG CAPSULE PO SCH (05:00)
[2023-11-04] MEDS ORDERED: chlordiazePOXIDE HCL 10 MG CAPSULE PO SCH (05:00)
[2023-11-05] MEDS ORDERED: chlordiazePOXIDE HCL 10 MG CAPSULE PO ONE (05:00)
== END 2023-11-01 18:19 | disposition left against medical advice (07) | DRG 770 ==
LOC: YASAS 10:17 → Y3N 11:56 → UNDOADMIN 11:56 → Y3N 10-31 15:40
PROVIDERS: ADMIT Allergy & Immunology; ATTEND Psychiatry & Neurology Addiction Medicine
PROC: HZ2ZZZZ Detoxification Services for Substance Abuse Treatment (ICD-10-PCS; principal; 2023-10-30)
DX: F10.230 Alcohol dependence with withdrawal, uncomplicated (principal); F14.20 Cocaine dependence, uncomplicated; F17.210 Nicotine dependence, cigarettes, uncomplicated; F25.9 Schizoaffective disorder, unspecified; F19.282 Other psychoactive substance dependence with psychoactive substance-induced sleep disorder; Z21 Asymptomatic human immunodeficiency virus [HIV] infection status; M54.50 Low back pain, unspecified; G89.29 Other chronic pain; R05.8 Other specified cough; Z62.810 Personal history of physical and sexual abuse in childhood; Z88.2 Allergy status to sulfonamides; Z56.0 Unemployment, unspecified; Z59.01 Sheltered homelessness
CPT/HCPCS: 36415; 80053; 80307; 85027; 86780; 87635

== ENCOUNTER 2024-06-25 12:28 | Inpatient (IN) | payer OTHER ==
[2024-06-25 14:30] VITALS: BMI 42.0
[2024-06-25] MEDS ORDERED: BENZONATATE 200 MG CAPSULE PO PRN (16:04)
[2024-06-25] MEDS ORDERED: LOPERAMIDE HCL 2 MG CAPSULE PO PRN (16:04)
[2024-06-25] MEDS ORDERED: POLYETHYLENE GLYCOL (HEALTHYLAX) 3350 17 GM PACKET PO PRN (16:04)
[2024-06-25] MEDS ORDERED: MAGNESIUM HYDROX 2400MG/30ML ORAL SUSPENSION 30 ML CUP PO PRN (16:04)
[2024-06-25] MEDS ORDERED: ACETAMINOPHEN 325 MG TABLET (FP) PO PRN (16:04)
[2024-06-25] MEDS ORDERED: hydrOXYzine PAMOATE 25 MG CAPSULE (FP) PO PRN (16:04)
[2024-06-25] MEDS ORDERED: BENZOCAINE/MENTHOL (CHLORASEPTIC ) LOZENGE MM PRN (16:04)
[2024-06-25] MEDS ORDERED: NALOXONE (NARCAN) HCL 4 MG/0.1 ML SPRAY NS PRN (16:04)
[2024-06-25] MEDS ORDERED: guaiFENesin 600 MG TABLET.ER (FP) PO PRN (16:04)
[2024-06-25] MEDS ORDERED: NALOXONE HCL 0.4 MG/ML VIAL IM PRN (16:04)
[2024-06-25] MEDS ORDERED: NICOTINE POLACRILEX 2 MG GUM BUC PRN (16:04)
[2024-06-25] MEDS: MELATONIN 5 MG TABLETS PO SCH (21:45)
[2024-06-25] MEDS: THIAMINE 100 MG TABLET PO SCH (21:45)
[2024-06-26] MEDS: PRENATAL VITAMINS W/ FOLIC ACID TABLET (FP) PO SCH (10:06)
[2024-06-26] MEDS: NICOTINE 14 MG/24 HOURS TOPICAL PATCH TD SCH (10:06)
[2024-06-26 11:47] LABS: HEMATOCRIT 43.5 % (35.4-49); MCHC 34.4 g/dl (32.0-35.9); MEAN PLT VOLUME 10.5 fl (7.5-11.1); PLATELET COUNT 191 10^3/uL (134-434); RBC 4.68 M/mm3 (4.00-5.60); RDW 12.7 % (11.9-15.9); WHITE BLOOD COUNT 7.4 K/mm3 (4.0-10.0)
[2024-06-26 13:05] LABS: CHLORIDE 112 mmol/L (98-107); POTASSIUM 4.2 mmol/L (3.5-5.1); SODIUM 143 mmol/L (136-145)
[2024-06-26 13:10] LABS: ALBUMIN 3.4 g/dl (3.4-5.0); ANION GAP 6 mmol/L (4-13); CALCIUM 8.6 mg/dL (8.5-10.1); CO2 25 mmol/L (21-32); CREATININE 0.8 mg/dL (0.55-1.3); GLUCOSE,RANDOM 105 mg/dL (74-106)
[2024-06-26 13:11] LABS: BLOOD UREA NITROGEN 14.8 mg/dL (7-18)
[2024-06-26 13:12] LABS: BILIRUBIN,TOTAL 0.3 mg/dL (0.2-1); TOT PROT 6.2 g/dl (6.4-8.2)
[2024-06-26 13:13] LABS: ALK PHOS 80 U/L (45-117); SGPT/ALT 22 U/L (13-61)
[2024-06-26 13:14] LABS: SGOT/AST 23 U/L (15-37)
[2024-06-26] MEDS: AMMONIUM LACTATE 12% LOTION 225 GM BOTTLE TP PRN (17:45)
[2024-06-26] MEDS: QUEtiapine FUMARATE 200 MG TABLET PO SCH (21:44)
[2024-06-27] MEDS: SERTRALINE HCL 50 MG TABLET (FP) PO SCH (09:36)
[2024-06-27] MEDS: MAG HYDROX/AL HYDROX/SIMETH 30 ML UNIT-DOSE CUP PO PRN (09:38)
[2024-06-27] MEDS ORDERED: MAGNESIUM SULFATE 16 OZ CRYSTALS TP ONE (10:15)
[2024-06-27] MEDS ORDERED: BACITRACIN 0.9 GM PACKET TP SCH (10:31)
[2024-06-27] MEDS ORDERED: BACITRACIN ZINC 15 GM TUBE TOPICAL OINTMENT TP SCH (11:00)
[2024-06-27] MEDS: BACITRACIN 0.9 GM PACKET TP SCH (11:08)
[2024-06-27] MEDS: MAGNESIUM SULFATE 16 OZ CRYSTALS TP ONE (22:27)
[2024-06-28] MEDS: BACITRACIN ZINC 15 GM TUBE TOPICAL OINTMENT TP SCH (10:17)
[2024-06-29 01:11] LABS: URINE APPEARANCE CLEAR; URINE BILIRUBIN NEGATIVE (NEGATIVE); URINE COLOR YELLOW; URINE GLUCOSE (UA) NEGATIVE (NEGATIVE); URINE KETONE NEGATIVE (NEGATIVE); URINE LEUK ESTERASE NEGATIVE (NEGATIVE); URINE NITRITE NEGATIVE (NEGATIVE); URINE PROTEIN NEGATIVE (NEGATIVE); URINE UROBILINOGEN 0.2 mg/dL (0.2-1.0)
[2024-06-29] MEDS: IBUPROFEN 600 MG TABLET (FP) PO PRN (13:55)
[2024-07-03 12:42] LABS: HIV INTERPRETATION NEGATIVE (NEGATIVE)
[2024-07-08 08:59] LABS: INR 0.94 (0.83-1.09); PROTHROMBIN TIME (PATIENT) 10.6 SEC (9.7-13.0)
[2024-07-08] MEDS: NALTREXONE HCL 50 MG TABLET PO SCH (09:50)
[2024-07-08] MEDS: LACTULOSE 20 GM/30 ML UDC (FOR ORAL USE ONLY) PO SCH (17:50)
[2024-07-08] MEDS ORDERED: LACTULOSE 20 GM/30 ML UDC (FOR ORAL USE ONLY) PO SCH (18:00)
[2024-07-09] MEDS: CHOLECALCIFEROL (VIT D3) 400 UNIT (10 MCG) TABLET PO SCH (10:09)
[2024-07-09] MEDS: NALTREXONE HCL 50 MG TABLET PO SCH (10:09)
[2024-07-10] MEDS: LACTULOSE 20 GM/30 ML UDC (FOR ORAL USE ONLY) PO SCH (09:54)
[2024-07-11] MEDS: IBUPROFEN 400 MG TABLET (FP) PO PRN (13:33)
[2024-07-15] MEDS: EMTRICITABINE/TENOFOV ALAFENAM (DESCOVY) TABLET PO SCH (13:06)
[2024-07-16] MEDS: BACLOFEN 10 MG TABLET (FP) PO SCH (21:27)
[2024-07-16] MEDS: LACTULOSE 20 GM/30 ML UDC (FOR ORAL USE ONLY) PO SCH (23:00)
[2024-07-17] MEDS: LACTULOSE 20 GM/30 ML UDC (FOR ORAL USE ONLY) PO SCH (12:12)
[2024-07-19 07:10] VITALS: RESP 17
[2024-07-20 07:26] VITALS: BP 126/79; PULSE 73; TEMP 97.1
== END 2024-07-20 10:55 | disposition home or self-care (01) | DRG 772 ==
LOC: YASAS 12:28 → Y3NR 15:28 → Y3W 06-26 11:44
PROVIDERS: ADMIT Allergy & Immunology; ATTEND Psychiatry & Neurology Pain Medicine
PROC: HZ42ZZZ Group Counseling for Substance Abuse Treatment, Cognitive-Behavioral (ICD-10-PCS; principal; 2024-06-25)
DX: F10.20 Alcohol dependence, uncomplicated (principal); F14.20 Cocaine dependence, uncomplicated; F17.210 Nicotine dependence, cigarettes, uncomplicated; F25.9 Schizoaffective disorder, unspecified; F31.9 Bipolar disorder, unspecified; E72.20 Disorder of urea cycle metabolism, unspecified; K21.9 Gastro-esophageal reflux disease without esophagitis; M54.50 Low back pain, unspecified; G89.29 Other chronic pain; E66.01 Morbid (severe) obesity due to excess calories; Z68.41 Body mass index [BMI] 40.0-44.9, adult; Z86.69 Personal history of other diseases of the nervous system and sense organs; Z59.00 Homelessness unspecified; Z56.0 Unemployment, unspecified
CPT/HCPCS: 36415; 80053; 80305; 80307; 81003; 82140; 82306; 83735; 85027; 85610; 86780; 87389; 87811; 93005; 93010; J0475

== ENCOUNTER 2024-09-26 08:25 | Inpatient (IN) | payer OTHER ==
[2024-09-26 09:11] VITALS: BMI 43.2
[2024-09-26] MEDS ORDERED: chlordiazePOXIDE HCL 25 MG CAPSULE PO PRN (10:59)
[2024-09-26] MEDS ORDERED: BENZONATATE 200 MG CAPSULE PO PRN (11:00)
[2024-09-26] MEDS ORDERED: ONDANSETRON *ODT* 4 MG TABLET SL PRN (11:00)
[2024-09-26] MEDS ORDERED: LOPERAMIDE HCL 2 MG CAPSULE PO PRN (11:00)
[2024-09-26] MEDS ORDERED: NALOXONE (NYS OPIOID OVERDOSE PROGRAM) 4 MG/0.1 ML SPRAY NS PRN (11:00)
[2024-09-26] MEDS ORDERED: MAG HYDROX/AL HYDROX/SIMETH 30 ML UNIT-DOSE CUP PO PRN (11:00)
[2024-09-26] MEDS ORDERED: hydrOXYzine PAMOATE 25 MG CAPSULE (FP) PO PRN (11:00)
[2024-09-26] MEDS ORDERED: ACETAMINOPHEN 325 MG TABLET (FP) PO PRN (11:00)
[2024-09-26] MEDS ORDERED: NICOTINE POLACRILEX 2 MG GUM BUC PRN (11:00)
[2024-09-26] MEDS ORDERED: IBUPROFEN 400 MG TABLET (FP) PO PRN (11:00)
[2024-09-26] MEDS ORDERED: BISMUTH SUBSALICYLATE 524 MG/30 ML PO PRN (11:00)
[2024-09-26] MEDS ORDERED: DICYCLOMINE HCL 10 MG CAPSULE PO PRN (11:00)
[2024-09-26] MEDS ORDERED: guaiFENesin 600 MG TABLET.ER (FP) PO PRN (11:00)
[2024-09-26] MEDS ORDERED: MAGNESIUM HYDROX 2400MG/30ML ORAL SUSPENSION 30 ML CUP PO PRN (11:00)
[2024-09-26] MEDS ORDERED: BENZOCAINE/MENTHOL (CHLORASEPTIC ) LOZENGE MM PRN (11:00)
[2024-09-26] MEDS ORDERED: POLYETHYLENE GLYCOL (HEALTHYLAX) 3350 17 GM PACKET PO PRN (11:00)
[2024-09-26] MEDS ORDERED: NALOXONE (NARCAN) HCL 4 MG/0.1 ML SPRAY NS PRN (11:00)
[2024-09-26] MEDS: chlordiazePOXIDE HCL 25 MG CAPSULE PO SCH (17:23)
[2024-09-26] MEDS: MELATONIN 5 MG TABLETS PO SCH (22:22)
[2024-09-26] MEDS: THIAMINE 100 MG TABLET PO SCH (22:22)
[2024-09-27 09:59] LABS: HEMATOCRIT 45.1 % (35.4-49); HEMOGLOBIN 14.7 GM/dL (11.7-16.9); MCH 31.3 pg (25.7-33.7); MCHC 32.6 g/dl (32.0-35.9); MEAN PLT VOLUME 10.9 fl (7.5-11.1); PLATELET COUNT 193 10^3/uL (134-434); RDW 13.1 % (11.9-15.9); WHITE BLOOD COUNT 6.2 K/mm3 (4.0-10.0)
[2024-09-27] MEDS: NICOTINE 14 MG/24 HOURS TOPICAL PATCH TD SCH (10:08)
[2024-09-27] MEDS: PRENATAL VITAMINS W/ FOLIC ACID TABLET (FP) PO SCH (10:10)
[2024-09-27] MEDS: FAMOTIDINE 20 MG TABLET PO SCH (10:10)
[2024-09-27] MEDS: IBUPROFEN 600 MG TABLET (FP) PO PRN (10:10)
[2024-09-27 10:26] LABS: CHLORIDE 112 mmol/L (98-107); POTASSIUM 3.9 mmol/L (3.5-5.1); SODIUM 142 mmol/L (136-145)
[2024-09-27 10:30] LABS: ALBUMIN 3.3 g/dl (3.4-5.0); ANION GAP 5 mmol/L (4-13); BLOOD UREA NITROGEN 13.7 mg/dL (7-18); CALCIUM 8.5 mg/dL (8.5-10.1); CO2 25 mmol/L (21-32); GLUCOSE,RANDOM 100 mg/dL (74-106)
[2024-09-27 10:33] LABS: CREATININE 0.9 mg/dL (0.55-1.3); SGPT/ALT 22 U/L (13-61)
[2024-09-27 10:34] LABS: SGOT/AST 24 U/L (15-37)
[2024-09-27 10:35] LABS: TOT PROT 6.4 g/dl (6.4-8.2)
[2024-09-27 10:36] LABS: ALK PHOS 75 U/L (45-117); BILIRUBIN,TOTAL 0.3 mg/dL (0.2-1)
[2024-09-27] MEDS: EMTRICITABINE/TENOFOV ALAFENAM (DESCOVY) TABLET PO SCH (16:03)
[2024-09-27] MEDS: METHOCARBAMOL 500 MG TABLET PO PRN (19:25)
[2024-09-28] MEDS: chlordiazePOXIDE HCL 25 MG CAPSULE PO SCH (05:31)
[2024-09-28] MEDS: SERTRALINE HCL 50 MG TABLET (FP) PO SCH (10:23)
[2024-09-29] MEDS ORDERED: chlordiazePOXIDE HCL 10 MG CAPSULE PO PRN
[2024-09-29] MEDS: chlordiazePOXIDE HCL 10 MG CAPSULE PO SCH (05:36)
[2024-09-30] MEDS: chlordiazePOXIDE HCL 10 MG CAPSULE PO SCH (05:22)
[2024-09-30] MEDS: NALTREXONE HCL 50 MG TABLET PO SCH (12:54)
[2024-10-01] MEDS: chlordiazePOXIDE HCL 10 MG CAPSULE PO ONE (05:55)
[2024-10-01 09:45] VITALS: BP 139/76; PULSE 73; RESP 18; TEMP 97.5
== END 2024-10-01 14:23 | disposition other institution (70) | DRG 775 ==
LOC: YASAS 08:25 → Y6N 11:10
PROVIDERS: ADMIT Surgery; ATTEND Surgery
PROC: HZ2ZZZZ Detoxification Services for Substance Abuse Treatment (ICD-10-PCS; principal; 2024-09-26)
DX: F10.230 Alcohol dependence with withdrawal, uncomplicated (principal); F17.210 Nicotine dependence, cigarettes, uncomplicated; F25.9 Schizoaffective disorder, unspecified; F19.282 Other psychoactive substance dependence with psychoactive substance-induced sleep disorder; F43.10 Post-traumatic stress disorder, unspecified; F32.A Depression, unspecified; K21.9 Gastro-esophageal reflux disease without esophagitis; M54.50 Low back pain, unspecified; G89.29 Other chronic pain; Z62.810 Personal history of physical and sexual abuse in childhood; Z91.89 Other specified personal risk factors, not elsewhere classified
CPT/HCPCS: 36415; 80053; 80305; 80307; 85027; 86780; 87811; 93005; 93010

== ENCOUNTER 2024-10-01 14:40 | Inpatient (IN) | payer OTHER ==
[~2024-10-01 14:40] MED LIST: ACETAMINOPHEN 325 MG TABLET (FP) PO PRN; BENZOCAINE/MENTHOL (CHLORASEPTIC ) LOZENGE MM PRN; BENZONATATE 200 MG CAPSULE PO PRN; IBUPROFEN 400 MG TABLET (FP) PO PRN; MAGNESIUM HYDROX 2400MG/30ML ORAL SUSPENSION 30 ML CUP PO PRN; NICOTINE POLACRILEX 2 MG GUM BUC PRN; NICOTINE POLACRILEX 2 MG LOZENGE BC PRN; POLYETHYLENE GLYCOL (HEALTHYLAX) 3350 17 GM PACKET PO PRN; hydrOXYzine PAMOATE 25 MG CAPSULE (FP) PO PRN
[2024-10-01] MEDS: IBUPROFEN 600 MG TABLET (FP) PO PRN (15:04)
[2024-10-01] MEDS: MELATONIN 5 MG TABLETS PO SCH (21:31)
[2024-10-01] MEDS: THIAMINE 100 MG TABLET PO SCH (21:31)
[2024-10-02] MEDS: FAMOTIDINE 20 MG TABLET PO SCH (05:59)
[2024-10-02] MEDS: LOPERAMIDE HCL 2 MG CAPSULE PO PRN (06:39)
[2024-10-02] MEDS ORDERED: EMTRICITABINE/TENOFOV ALAFENAM (DESCOVY) TABLET PO PRN (10:00)
[2024-10-02] MEDS: NALTREXONE HCL 50 MG TABLET PO SCH (10:21)
[2024-10-02] MEDS: PRENATAL VITAMINS W/ FOLIC ACID TABLET (FP) PO SCH (10:21)
[2024-10-02] MEDS: EMTRICITABINE/TENOFOV ALAFENAM (DESCOVY) TABLET PO SCH (10:21)
[2024-10-02] MEDS: SERTRALINE HCL 50 MG TABLET (FP) PO SCH (10:21)
[2024-10-02] MEDS: NICOTINE 14 MG/24 HOURS TOPICAL PATCH TD SCH (10:21)
[2024-10-02 13:07] LABS: HIV INTERPRETATION NEGATIVE (NEGATIVE)
[2024-10-02] MEDS: ONDANSETRON *ODT* 4 MG TABLET SL ONE (13:20)
[2024-10-02] MEDS: OXYMETAZOLINE 0.05% NASAL SOLUTION 15 ML BOTTLE NS ONE (15:32)
[2024-10-02] MEDS: BACLOFEN 10 MG TABLET (FP) PO SCH (21:37)
[2024-10-03] MEDS: MAG HYDROX/AL HYDROX/SIMETH 30 ML UNIT-DOSE CUP PO PRN (08:37)
[2024-10-03] MEDS: guaiFENesin 600 MG TABLET.ER (FP) PO PRN (08:39)
[2024-10-04 08:08] LABS: BASO % 0.9 % (0-2.0); EOS % 3.1 % (0-4.5); HEMATOCRIT 46.7 % (35.4-49); HEMOGLOBIN 15.4 GM/dL (11.7-16.9); LYMPH % 24.6 % (8-40); MCH 31.4 pg (25.7-33.7); MEAN PLT VOLUME 10.6 fl (7.5-11.1); MONO % 8.3 % (3.8-10.2); NEUT % 63.1 % (42.8-82.8); PLATELET COUNT 230 10^3/uL (134-434); RBC 4.92 M/mm3 (4.00-5.60); RDW 13.2 % (11.9-15.9); WHITE BLOOD COUNT 7.4 K/mm3 (4.0-10.0)
[2024-10-04 08:09] LABS: POTASSIUM 4.4 mmol/L (3.5-5.1)
[2024-10-04 08:11] LABS: BLOOD UREA NITROGEN 11.3 mg/dL (7-18)
[2024-10-04 08:12] LABS: ALBUMIN 3.5 g/dl (3.4-5.0)
[2024-10-04 08:16] LABS: BILIRUBIN,TOTAL 0.4 mg/dL (0.2-1); TOT PROT 6.7 g/dl (6.4-8.2)
[2024-10-05 07:19] VITALS: TEMP 97.3
[2024-10-05 18:46] VITALS: BP 154/90; PULSE 72; RESP 17
[2024-10-05] MEDS: NALOXONE (NYS OPIOID OVERDOSE PROGRAM) 4 MG/0.1 ML SPRAY NS ONE (19:56)
== END 2024-10-05 19:20 | disposition left against medical advice (07) | DRG 770 ==
LOC: YASAS 14:40 → Y3W 14:42
PROVIDERS: ADMIT Psychiatry & Neurology Pain Medicine; ATTEND Psychiatry & Neurology Pain Medicine
PROC: HZ42ZZZ Group Counseling for Substance Abuse Treatment, Cognitive-Behavioral (ICD-10-PCS; principal; 2024-10-01)
DX: F10.20 Alcohol dependence, uncomplicated (principal); F14.20 Cocaine dependence, uncomplicated; F17.210 Nicotine dependence, cigarettes, uncomplicated; F31.9 Bipolar disorder, unspecified; F25.9 Schizoaffective disorder, unspecified; F43.10 Post-traumatic stress disorder, unspecified; K21.9 Gastro-esophageal reflux disease without esophagitis; M54.50 Low back pain, unspecified; G89.29 Other chronic pain; Z91.89 Other specified personal risk factors, not elsewhere classified
CPT/HCPCS: 0241U-QW; 36415; 80053; 85025; 87389; J0475; Q0162